=== PATIENT | male | born 1970 | race Hispanic/Latino ===

== ENCOUNTER 2018-08-17 19:16 | Inpatient (IN) | payer OTHER ==
[~2018-08-17] VITALS: Ht 182.9 cm; Wt 92.9 kg
[~2018-08-17 19:16] MED LIST: FOLI1TAB15 PO; LACT10SO9 PO; LORA-192 PO; MVIT PO; POTA10TA14 PO; THIAM100TB PO
[2018-08-17] MEDS ORDERED: SODIUM CHLORIDE 0.9% 1000ML 1,000 ML IV ONE ×2 (19:45→22:45)
[2018-08-17] MEDS ORDERED: ONDANSETRON HCL 4 MG/2 ML VIAL ONE (19:45)
[2018-08-17 19:55] LABS: BASOPHILS % (AUTO) 1.5 % (0.0-5.0); EOSINOPHILS % (AUTO) 0.3 % (0.0-8.0); HEMATOCRIT 36.7 % (42-54); LYMPHOCYTES % (AUTO) 9.1 % (21.0-51.0); MEAN CORPUSCULAR HGB CONC 35.6 g/dL (32.0-36.0); MEAN CORPUSCULAR VOLUME 98.5 fL (79-99); MONOCYTES % (AUTO) 14.5 % (3.0-13.0); NEUTROPHILS % (AUTO) 74.6 % (40.0-77.0); PLATELET COUNT (AUTO) 189 K/uL (130-400); RED BLOOD CELL COUNT(AUTO) 3.72 MIL/uL (4.50-6.20); RED CELL DISTRIBUTION WIDTH 13.9 % (11.0-15.5); WHITE BLOOD COUNT (AUTO) 6.8 K/uL (4.8-10.8)
[2018-08-17 20:05] LABS: POTASSIUM 3.3 mmol/L (3.5-5.1)
[2018-08-17 20:08] LABS: INR 1.18 (0.85-1.15); PARTIAL THROMBOPLASTIN TIME 28.4 SEC (26.3-35.5); PROTHROMBIN TIME 12.3 SEC (9.6-11.6)
[2018-08-17 20:09] LABS: ALBUMIN 3.2 g/dL (3.5-5.0); BILIRUBIN,TOTAL 0.9 mg/dL (0.2-1.0); TOTAL PROTEIN, SERUM 8.8 g/dL (6.0-8.3)
[2018-08-17] MEDS ORDERED: OCTREOTIDE ACETATE 100 MCG/ML AMP ONE ×2 (21:08→21:18)
[2018-08-17] MEDS ORDERED: SODIUM CHLORIDE 0.9% 100 ML IV ONE ×2 (21:09→21:18)
[2018-08-17] MEDS ORDERED: PHARMACY COMMUNICATION MISC PRN (21:45)
[2018-08-17] MEDS ORDERED: THIAMINE HCL 100 MG, FOLIC ACID 1 MG, M.V.I. IV [ADULT] 10 ML in SODIUM CHLORIDE 0.9% 1... IV SCH (21:45)
[2018-08-17] MEDS ORDERED: CHLORDIAZEPOXIDE HCL 25 MG CAP PO PRN (21:45)
[2018-08-17] MEDS ORDERED: ACETAMINOPHEN EXTRA STRENGTH 500 MG TABLET PO PRN (21:45)
[2018-08-17] MEDS ORDERED: ONDANSETRON HCL 4 MG/2 ML VIAL IV PRN (21:45)
[2018-08-17] MEDS ORDERED: LORAZEPAM 2 MG/ML 1 ML VIAL IVP PRN (21:45)
[2018-08-17] MEDS ORDERED: PROMETHAZINE HCL 25 MG TABLET PO PRN (21:45)
[2018-08-17] MEDS: SODIUM CHLORIDE 0.9% 1000ML 1,000 ML IV SCH (21:48)
[2018-08-17 22:00] LABS: PHOSPHORUS 3.5 mg/dL (2.5-4.9)
[2018-08-17] MEDS ORDERED: OCTREOTIDE ACETATE 500 MCG in SODIUM CHLORIDE 0.9% 97.5 ML IV PRN (22:00)
[2018-08-17] MEDS ORDERED: SODIUM CHLORIDE 0.9% 1000ML 1,000 ML IV SCH (22:00)
[2018-08-17] MEDS ORDERED: NITROGLYCERIN 0.4 MG SL TAB SL PRN (22:00)
[2018-08-17] MEDS ORDERED: ACETAMINOPHEN 650 MG SUPPOSITORY RC PRN ×2 (22:00)
[2018-08-17 22:07] LABS: ALCOHOL, BLOOD < 3 mg/dL (0-10)
[2018-08-17] MEDS ORDERED: M.V.I. IV [ADULT] 10 ML VIAL IV ONE (22:48)
[2018-08-17] MEDS ORDERED: THIAMINE HCL 100 MG/ML 2ML VIAL ONE (22:48)
[2018-08-17] MEDS ORDERED: FOLIC ACID 1 MG TABLET ONE (22:57)
[2018-08-17] MEDS ORDERED: LORAZEPAM 2 MG/ML 1 ML VIAL ONE (23:01)
[2018-08-17] MEDS ORDERED: MAGNESIUM 2GM PREMIX 50ML 50 ML IV ONE (23:25)
[2018-08-17] MEDS ORDERED: POTASSIUM CHLORIDE 20MEQ/100ML 100 ML IV ONE (23:25)
[2018-08-18] MEDS: SODIUM CHLORIDE 0.9% 1000ML 1,000 ML IV SCH (05:48)
[2018-08-18 06:31] LABS: ALBUMIN 2.4 g/dL (3.5-5.0); BILIRUBIN,TOTAL 0.5 mg/dL (0.2-1.0); CREATININE 0.9 mg/dL (0.5-1.5); MAGNESIUM 1.3 mg/dL (1.80-2.40); POTASSIUM 4.7 mmol/L (3.5-5.1); TOTAL PROTEIN, SERUM 6.9 g/dL (6.0-8.3)
[2018-08-18 06:35] LABS: BASOPHILS % (AUTO) 1.2 % (0.0-5.0); HEMATOCRIT 31.7 % (42-54); LYMPHOCYTES % (AUTO) 26.2 % (21.0-51.0); MEAN CORPUSCULAR HEMOGLOBIN 35.9 pg (27.0-33.0); MEAN CORPUSCULAR HGB CONC 35.9 g/dL (32.0-36.0); MEAN CORPUSCULAR VOLUME 99.9 fL (79-99); MONOCYTES % (AUTO) 18.2 % (3.0-13.0); NEUTROPHILS % (AUTO) 52.4 % (40.0-77.0); NUCLEATED RED BLOOD CELLS 0.2 % (0.0-0.19); PLATELET COUNT (AUTO) 176 K/uL (130-400); RED BLOOD CELL COUNT(AUTO) 3.17 MIL/uL (4.50-6.20); RED CELL DISTRIBUTION WIDTH 13.9 % (11.0-15.5); WHITE BLOOD COUNT (AUTO) 4.5 K/uL (4.8-10.8)
[2018-08-18] MEDS: PANTOPRAZOLE SODIUM 80 MG in SODIUM CHLORIDE 0.9% 100 ML IV SCH ×2 (09:00→13:56)
[2018-08-18] MEDS ORDERED: OCTREOTIDE ACETATE 500 MCG in SODIUM CHLORIDE 0.9% 97.5 ML IV PRN (10:15)
[2018-08-18 12:09] LABS: HEMATOCRIT 31.7 % (42-54)
--- NOTE | 2018-08-18 12:18 | NUR ---
MANI Guillermo met with pt and nephew. Pt currently lives with GF. Pt is independent, unemployed, no DME or HH. Pt seen at [facility] for care and meds. Plan is to dc to brother Rogelio's home [phone]. CM to follow and assist as needed Addendum: 08/18/18 at 1219 by LINDA DUMONT Amended: Links added.
[2018-08-18] MEDS ORDERED: ONDANSETRON HCL 4 MG/2 ML VIAL ONE (12:35)
[2018-08-18 13:15] VITALS: BP 149/93
[2018-08-18] MEDS: LORAZEPAM 2 MG/ML 1 ML VIAL IVP PRN ×2 (14:17→20:57)
[2018-08-18 16:00] VITALS: BP 147/90
[2018-08-18] MEDS ORDERED: POTA-9 PO (16:18)
[2018-08-18] MEDS ORDERED: LORA1TAB3 PO (16:18)
[2018-08-18] MEDS ORDERED: FOLI1TAB15 PO (16:18)
[2018-08-18] MEDS ORDERED: LOSA50TA64 PO (16:18)
[2018-08-18 19:00] VITALS: BP_SYST 161; BP_SYST 164; BP_DIAS 101; BP_DIAS 98
[2018-08-18 20:13] LABS: HEMATOCRIT 31.9 % (42-54)
[2018-08-18 21:04] LABS: APPEARANCE,URINE Clear (CLEAR); BILIRUBIN,URINE Negative (NEGATIVE); COLOR,URINE Yellow (YELLOW); GLUCOSE, URINE (UA) Negative (NEGATIVE); KETONES,URINE Negative (NEGATIVE); LEUKOCYTE ESTERASE ,URINE Trace (NEGATIVE); NITRATE,URINE Negative (NEGATIVE); OCCULT BLOOD,URINE Negative (NEGATIVE); PH,URINE >=9.0 (5.0-8.0); PROTEIN,URINE Negative (NEGATIVE)
[2018-08-18 21:10] LABS: RBC,URINE 0-1 /HPF (0-1)
[2018-08-18 21:11] LABS: BACTERIA,URINE Rare /HPF (None Seen)
[2018-08-18] MEDS: CHLORDIAZEPOXIDE HCL 25 MG CAP PO PRN (21:11)
[2018-08-18 21:12] LABS: SQUAMOUS EPITHELIAL CELL,UR Rare /HPF (0-2)
[2018-08-18 21:13] LABS: AMPHET/METH SCREEN,URINE NEGATIVE (NEGATIVE); BARBITURATE SCREEN, URINE NEGATIVE (NEGATIVE); BENZODIAZEPINES SCREEN,URINE NEGATIVE (NEGATIVE); CANNABINOID SCREEN,URINE NEGATIVE (NEGATIVE); COCAINE SCREEN,URINE NEGATIVE (NEGATIVE); OPIATE SCREEN,URINE NEGATIVE (NEGATIVE); PHENCYCLIDINE SCREEN,URINE NEGATIVE (NEGATIVE)
[2018-08-18] MEDS: MAGNESIUM 2GM PREMIX 50ML 50 ML IV PRN (23:03)
[2018-08-19] VITALS (18 sets, daily range): BP systolic 124–173; BP diastolic 53–104
[2018-08-19 04:32] LABS: BASOPHILS % (AUTO) 2.7 % (0.0-5.0); EOSINOPHILS % (AUTO) 4.3 % (0.0-8.0); HEMATOCRIT 30.6 % (42-54); LYMPHOCYTES % (AUTO) 34.2 % (21.0-51.0); MEAN CORPUSCULAR HEMOGLOBIN 35.5 pg (27.0-33.0); MEAN CORPUSCULAR HGB CONC 35.6 g/dL (32.0-36.0); MEAN CORPUSCULAR VOLUME 99.5 fL (79-99); MONOCYTES % (AUTO) 14.6 % (3.0-13.0); NEUTROPHILS % (AUTO) 44.2 % (40.0-77.0); PLATELET COUNT (AUTO) 139 K/uL (130-400); RED BLOOD CELL COUNT(AUTO) 3.08 MIL/uL (4.50-6.20); RED CELL DISTRIBUTION WIDTH 13.8 % (11.0-15.5); WHITE BLOOD COUNT (AUTO) 3.7 K/uL (4.8-10.8)
[2018-08-19] MEDS: POTASSIUM CHLORIDE 20MEQ/100ML 100 ML IV PRN ×2 (05:17→14:17)
[2018-08-19] MEDS: LIDOCAINE HCL-MPF 1% 2ML VIAL IVP PRN (05:17)
[2018-08-19] MEDS: SODIUM CHLORIDE 0.9% 1000ML 1,000 ML IV SCH (05:48)
[2018-08-19] MEDS: MAGNESIUM 2GM PREMIX 50ML 50 ML IV PRN (06:01)
[2018-08-19] MEDS: PANTOPRAZOLE SODIUM 80 MG in SODIUM CHLORIDE 0.9% 100 ML IV SCH (10:21)
[2018-08-19] MEDS ORDERED: PROPOFOL 10 MG/ML 20ML VIAL IV ONE (11:02)
[2018-08-19] MEDS: LORAZEPAM 2 MG/ML 1 ML VIAL IVP PRN (14:26)
[2018-08-19] MEDS ORDERED: POTASSIUM CHLORIDE 20 MEQ ERTAB PO SCH (14:30)
--- NOTE | 2018-08-19 15:42 | NUR ---
RD Notification Pt admitted for Upper GI Bleed. Pt NPO at time of screen; When medically feasible, rec to advance to Hepatic, Iron-Rich Diet secondary to Hx of Cirrhosis, GI Bleed. Pt with Alcohol abuse with IV B complex/MVI in place. Pt LBM 08/18/18. Pt monitored labs: K 3.0, BUN 23, Ca 7.9, Alb 2.4. RD to continue to monitor. Please notify RD as nutritional concerns arise. Thank you. Addendum: 08/19/18 at [address] Amended: Links added.
[2018-08-19] MEDS: PROPRANOLOL HCL 20 MG TAB PO SCH (21:45)
[2018-08-20] VITALS: BP 154/97
[2018-08-20] MEDS: CHLORDIAZEPOXIDE HCL 25 MG CAP PO PRN (02:15)
[2018-08-20 04:00] VITALS: BP 137/78
[2018-08-20 04:51] LABS: HEMATOCRIT 32.2 % (42-54); MEAN CORPUSCULAR HEMOGLOBIN 36.1 pg (27.0-33.0); MEAN CORPUSCULAR HGB CONC 36.4 g/dL (32.0-36.0); MEAN CORPUSCULAR VOLUME 99.2 fL (79-99); NUCLEATED RED BLOOD CELLS 0.1 % (0.0-0.19); PLATELET COUNT (AUTO) 141 K/uL (130-400); RED BLOOD CELL COUNT(AUTO) 3.25 MIL/uL (4.50-6.20); RED CELL DISTRIBUTION WIDTH 13.8 % (11.0-15.5); WHITE BLOOD COUNT (AUTO) 3.9 K/uL (4.8-10.8)
[2018-08-20 04:59] LABS: POTASSIUM 2.8 mmol/L (3.5-5.1)
[2018-08-20] MEDS: LIDOCAINE HCL-MPF 1% 2ML VIAL IVP PRN (05:18)
[2018-08-20] MEDS: POTASSIUM CHLORIDE 20MEQ/100ML 100 ML IV PRN (05:18)
[2018-08-20] MEDS ORDERED: PANTOPRAZOLE SODIUM 40 MG TABLET.DR PO SCH (07:30)
[2018-08-20] MEDS ORDERED: POTASSIUM CHLORIDE 20 MEQ ERTAB PO ONE ×4 (08:19→18:21)
[2018-08-20] MEDS: PROPRANOLOL HCL 20 MG TAB PO SCH (08:19)
[2018-08-20 08:43] VITALS: BP 144/88
[2018-08-20 12:25] VITALS: BP 145/98
[2018-08-20] MEDS ORDERED: PROP20TA96 PO (14:19)
[2018-08-20] MEDS ORDERED: PANT40TA PO (14:19)
[2018-08-20] MEDS ORDERED: MAGNESIUM 2GM PREMIX 50ML 50 ML IV PRN (14:30)
[2018-08-20] MEDS ORDERED: POTASSIUM CHLORIDE 20 MEQ ERTAB PO SCH ×2 (15:30→18:30)
[2018-08-20 17:17] VITALS: BP 133/81
== END 2018-08-20 18:35 | disposition home or self-care (01) | DRG 391 ==
LOC: EDH 19:16 → EDHIP 19:17 → 4AH 08-18 12:52
PROVIDERS: ADMIT Family Medicine; ATTEND Family Medicine
PROC: 0DJ08ZZ Inspection of Upper Intestinal Tract, Via Natural or Artificial Opening Endoscopic (ICD-10-PCS; principal; 2018-08-19)
DX: K21.0 Gastro-esophageal reflux disease with esophagitis (principal); K29.01 Acute gastritis with bleeding; I10 Essential (primary) hypertension; E87.6 Hypokalemia; E83.42 Hypomagnesemia; F10.10 Alcohol abuse, uncomplicated; I86.4 Gastric varices; K26.9 Duodenal ulcer, unspecified as acute or chronic, without hemorrhage or perforation; K31.89 Other diseases of stomach and duodenum; K75.9 Inflammatory liver disease, unspecified; K70.30 Alcoholic cirrhosis of liver without ascites; F41.9 Anxiety disorder, unspecified; E66.9 Obesity, unspecified; Z68.27 Body mass index [BMI] 27.0-27.9, adult
CPT/HCPCS: 36415; 43239; 80048; 80053; 80305; 81001; 82270; 83735; 84100; 84132; 85014; 85018; 85025; 85027; 85610; 85730; 86850; 86900; 86901; 93005; 99291; C9113; G0378; G0480; J2060; J2354; J2405; J2704; J3411; J3475; J3480; J3490; J7030

== ENCOUNTER 2019-11-22 16:14 | Inpatient (IN) | payer OTHER ==
[~2019-11-22] VITALS: Ht 170.2 cm; Wt 91.5 kg
[~2019-11-22 16:14] MED LIST changes: -LACT10SO9 PO; -LORA-192 PO; +LORA1TAB3 PO; +LOSA50TA64 PO; -MVIT PO; +PANT40TA PO; +POTA-9 PO; -POTA10TA14 PO; +PROP20TA96 PO; -THIAM100TB PO
[2019-11-22 16:43] LABS: BASOPHILS % (AUTO) 1.3 % (0.0-5.0); EOSINOPHILS % (AUTO) 1.9 % (0.0-8.0); HEMATOCRIT 30.7 % (42-54); LYMPHOCYTES % (AUTO) 19.7 % (21.0-51.0); MEAN CORPUSCULAR HEMOGLOBIN 37.6 pg (27.0-33.0); MEAN CORPUSCULAR HGB CONC 34.5 g/dL (32.0-36.0); MEAN CORPUSCULAR VOLUME 108.9 fL (79-99); MONOCYTES % (AUTO) 17.3 % (3.0-13.0); PLATELET COUNT (AUTO) 121 K/uL (130-400); RED BLOOD CELL COUNT(AUTO) 2.82 MIL/uL (4.50-6.20); RED CELL DISTRIBUTION WIDTH 14.4 % (11.0-15.5); WHITE BLOOD COUNT (AUTO) 8.8 K/uL (4.8-10.8)
[2019-11-22 16:53] LABS: CREATININE 1.2 mg/dL (0.5-1.5); POTASSIUM 3.5 mmol/L (3.5-5.1)
[2019-11-22 16:56] LABS: INR 1.97 (0.85-1.15); PARTIAL THROMBOPLASTIN TIME 51.3 SEC (26.3-35.5); PROTHROMBIN TIME 20.7 SEC (9.6-11.6)
[2019-11-22 17:06] LABS: ALBUMIN 1.1 g/dL (3.5-5.0); TOTAL PROTEIN, SERUM 7.1 g/dL (6.0-8.3)
[2019-11-22 17:14] LABS: BILIRUBIN,TOTAL 17.1 mg/dL (0.2-1.0)
[2019-11-22] MEDS ORDERED: THIAMINE HCL 100 MG/ML 2ML VIAL ONE (18:03)
[2019-11-22 18:30] LABS: APPEARANCE,URINE CLOUDY (CLEAR); BILIRUBIN,URINE LARGE (NEGATIVE); COLOR,URINE BROWN (YELLOW); GLUCOSE, URINE (UA) 100 mg/dL (NEGATIVE); KETONES,URINE 15 mg/dL (NEGATIVE); LEUKOCYTE ESTERASE ,URINE TRACE (NEGATIVE); NITRATE,URINE POSITIVE (NEGATIVE); OCCULT BLOOD,URINE LARGE (NEGATIVE); PH,URINE 6.5 (5.0-8.0); PROTEIN,URINE 30 mg/dL (NEGATIVE)
[2019-11-22] MEDS ORDERED: IOHEXOL-350 75 ML VIAL IV ONE (18:32)
[2019-11-22 18:43] LABS: BACTERIA,URINE Moderate /HPF (None Seen)
[2019-11-22 18:44] LABS: MUCUS,URINE Moderate LPF (None Seen); SQUAMOUS EPITHELIAL CELL,UR Few /HPF (0-2)
[2019-11-22 18:47] LABS: AMPHET/METH SCREEN,URINE NEGATIVE (NEGATIVE); BARBITURATE SCREEN, URINE NEGATIVE (NEGATIVE); BENZODIAZEPINES SCREEN,URINE POSITIVE (NEGATIVE); CANNABINOID SCREEN,URINE NEGATIVE (NEGATIVE); COCAINE SCREEN,URINE NEGATIVE (NEGATIVE); OPIATE SCREEN,URINE NEGATIVE (NEGATIVE); PHENCYCLIDINE SCREEN,URINE NEGATIVE (NEGATIVE)
[2019-11-22] MEDS ORDERED: MORPHINE SULFATE 4 MG/1ML SYG IV PRN (19:30)
[2019-11-22] MEDS ORDERED: ACETAMINOPHEN 325 MG TAB PO PRN ×2 (19:30)
[2019-11-22] MEDS ORDERED: LACTULOSE 20 GM/30 ML UDCUP PO PRN (19:30)
[2019-11-22] MEDS ORDERED: LIDOCAINE HCL 2% VISCOUS 30 ML, MAG HYDROX/AL HYDROX/SIMETH 30 ML, BELLADONNA-PHENOBARB... PO PRN ×3 (19:30)
[2019-11-22] MEDS ORDERED: GUAIFENESIN-DM 200/20 MG 10 ML PO PRN (19:30)
[2019-11-22] MEDS ORDERED: ONDANSETRON HCL 4 MG/2 ML VIAL IV PRN (19:30)
[2019-11-22] MEDS ORDERED: MAG HYDROX/AL HYDROX/SIMETH ES 30 ML SUSP UDCUP PO PRN (19:30)
[2019-11-22] MEDS ORDERED: MORPHINE SULFATE 2 MG/ML 1ML SYG IV PRN (19:30)
[2019-11-22] MEDS ORDERED: HYDROMORPHONE HCL 0.5 MG/0.5 ML ML IV PRN (19:30)
[2019-11-22] MEDS ORDERED: NITROGLYCERIN 0.4 MG SL TAB SL PRN (19:30)
[2019-11-22] MEDS ORDERED: DIPHENHYDRAMINE HCL 25 MG CAPSULE PO PRN (19:30)
[2019-11-22] MEDS ORDERED: DiphenhydrAMINE HCL 50 MG/ML VIAL IV PRN (19:30)
[2019-11-22] MEDS ORDERED: MAG HYDROX/AL HYDROX/SIMETH 30 ML, LIDOCAINE HCL 2% VISCOUS 30 ML, DIPHENHYDRAMINE HCL ... PO PRN ×3 (19:30)
[2019-11-22] MEDS ORDERED: FAMOTIDINE/PF 20 MG/2 ML VIAL IV ONE (20:28)
[2019-11-22 20:51] LABS: CREATINE KINASE, TOTAL 59 U/L (21-232); MYOGLOBIN 30 ng/mL (10-92); TROPONIN I < 0.04 ng/mL (0.00-0.06)
[2019-11-22] MEDS: FAMOTIDINE/PF 20 MG/2 ML VIAL IV SCH (21:00)
--- NOTE | 2019-11-23 00:59 | NUR ---
PATIENT RECEIVED FROM ER WITH A DIAGNOSIS OF LIVER FAILURE, JAUNDICE, UTI, UNDER THE CARE OF . PATIENT AWAKE AND ALERT TO NAME AND PLACE. ORIENTATED TO ROOM AND HOSPITAL. EXTRA TIME NEEDED TO VOICE NEEDS. VITALS STABLE. AFEBRILE. HEAD TO TOE ASSESSMENT DONE. LARGE BRUISE NOTED TO LEFT LE. PER GIRLFRIEND CHRISTINA, SHE STATES PATIENT HAD FALLEN AT REHAB FEW DAYS AGO, HISTORY OBTAINED FROM GF AND SOME FROM PATIENT. SIDE RAILS UP X4. FALL/SEIZURE PRECAUTIONS IN PLACE. WILL CONTINUE TO BE OBSERVED. Addendum: 11/23/19 at 0620 by HILTON WALLS RN RN Amended: Links added.
[2019-11-23] MEDS ORDERED: CYCL10TA7 PO (01:30)
[2019-11-23] MEDS ORDERED: DULO30CA52 PO (01:30)
[2019-11-23] MEDS ORDERED: MAGN400T8 PO (01:30)
[2019-11-23] MEDS: CEFTRIAXONE SODIUM 1 GM IVP SCH ×2 (02:50→23:47)
[2019-11-23] MEDS ORDERED: PHARMACY COMMUNICATION MISC PRN (03:15)
[2019-11-23] MEDS ORDERED: LORAZEPAM 1 MG TABLET PO PRN (03:15)
[2019-11-23] MEDS ORDERED: LORAZEPAM 2 MG/ML 1 ML VIAL IVP PRN (03:15)
[2019-11-23 04:00] VITALS: BP 106/50
[2019-11-23 05:32] LABS: BASOPHILS % (AUTO) 1.2 % (0.0-5.0); HEMATOCRIT 31.6 % (42-54); LYMPHOCYTES % (AUTO) 12.4 % (21.0-51.0); MEAN CORPUSCULAR HEMOGLOBIN 37.5 pg (27.0-33.0); MEAN CORPUSCULAR HGB CONC 35.4 g/dL (32.0-36.0); MEAN CORPUSCULAR VOLUME 105.7 fL (79-99); MONOCYTES % (AUTO) 14.3 % (3.0-13.0); NEUTROPHILS % (AUTO) 70.5 % (40.0-77.0); NUCLEATED RED BLOOD CELLS 0.2 % (0.0-0.19); PLATELET COUNT (AUTO) 99 K/uL (130-400); RED BLOOD CELL COUNT(AUTO) 2.99 MIL/uL (4.50-6.20); RED CELL DISTRIBUTION WIDTH 14.3 % (11.0-15.5); WHITE BLOOD COUNT (AUTO) 10.4 K/uL (4.8-10.8)
[2019-11-23] MEDS: CHLORDIAZEPOXIDE HCL 25 MG CAP PO PRN ×2 (05:43→09:08)
[2019-11-23 05:51] LABS: CREATININE 0.8 mg/dL (0.5-1.5); MAGNESIUM 1.7 mg/dL (1.80-2.40); POTASSIUM 3.5 mmol/L (3.5-5.1); TOTAL PROTEIN, SERUM 6.8 g/dL (6.0-8.3)
--- NOTE | 2019-11-23 06:00 | NUR ---
PATIENT MEDICATED PER ETOH ALCOHOL WITHDRAWAL ASSESSMENT SCORE OF 12. PATIENT TOLERATED WELL. BED BATH GIVEN. REPOSITIONED FOR COMFORT. NO SIGNS OF DISTRESS NOTED. CALL LIGHT WITHIN REACH. WILL CONTINUE TO BE OBSERVED. Addendum: 11/23/19 at 0612 by HILTON WALLS RN RN Amended: Links added.
[2019-11-23 06:52] LABS: CREATINE KINASE, TOTAL 74 U/L (21-232); MYOGLOBIN 37 ng/mL (10-92); TROPONIN I < 0.04 ng/mL (0.00-0.06)
[2019-11-23 07:30] VITALS: BP 125/95
[2019-11-23] MEDS: PANTOPRAZOLE SODIUM 40 MG TABLET.DR PO SCH (07:30)
[2019-11-23] MEDS ORDERED: ENOXAPARIN SODIUM 40 MG/0.4 ML SYRINGE SQ SCH (09:00)
[2019-11-23] MEDS: MAGNESIUM OXIDE 400 MG TABLET PO SCH ×2 (09:07→22:33)
[2019-11-23] MEDS: MULTIVITAMIN TABLET PO SCH (09:07)
[2019-11-23] MEDS: FOLIC ACID 1 MG TABLET PO SCH (09:07)
[2019-11-23] MEDS: FAMOTIDINE/PF 20 MG/2 ML VIAL IV SCH ×2 (09:07→20:26)
[2019-11-23] MEDS: PROPRANOLOL HCL 20 MG TAB PO SCH ×2 (09:08→22:33)
[2019-11-23] MEDS: POTASSIUM CHLORIDE 10 MEQ/TAB.SA PO SCH (09:08)
[2019-11-23] MEDS: THIAMINE HCL 100 MG, FOLIC ACID 1 MG, M.V.I. IV [ADULT] 10 ML in SODIUM CHLORIDE 0.9% 1... IV SCH (09:44)
[2019-11-23] MEDS: LACTULOSE 20 GM/30 ML UDCUP PO SCH ×2 (09:47→16:58)
[2019-11-23 11:00] VITALS: BP 97/64
[2019-11-23 12:15] LABS: CREATINE KINASE, TOTAL 66 U/L (21-232); MYOGLOBIN 56 ng/mL (10-92); TROPONIN I < 0.04 ng/mL (0.00-0.06)
--- NOTE | 2019-11-23 15:55 | NUR ---
JOSÉ MIGUEL ATTEMPTED THIS MORNING PATIENT SOMMOLENT, WILL RE VISIT. Addendum: 11/23/19 at 1556 by SHIVA JACOBSEN RN CM Amended: Links added.
[2019-11-23 16:00] VITALS: BP 108/58
[2019-11-23] MEDS ORDERED: LACTULOSE 20 GM/30 ML UDCUP PR SCH (17:30)
[2019-11-23] MEDS: LACTULOSE 20 GM/30 ML UDCUP PR SCH ×2 (19:30→23:45)
[2019-11-23 19:55] VITALS: BP 124/67
[2019-11-23] MEDS: MAGNESIUM 2GM PREMIX 50ML 50 ML IV SCH (20:26)
[2019-11-23] MEDS ORDERED: SODIUM CHLORIDE 0.9% 250 ML IV ONE (20:40)
[2019-11-23] MEDS: DULOXETINE HCL 30 MG CAP PO SCH (22:33)
[2019-11-23 23:23] VITALS: BP 139/56
[2019-11-24] MEDS: LACTULOSE 20 GM/30 ML UDCUP PO SCH ×4 (00:10→23:37)
[2019-11-24] MEDS ORDERED: POTASSIUM CHLORIDE 20 MEQ ERTAB PO ONE (01:06)
[2019-11-24] MEDS: CHLORDIAZEPOXIDE HCL 25 MG CAP PO PRN (01:08)
[2019-11-24] MEDS: POTASSIUM CHLORIDE 20 MEQ ERTAB PO PRN (04:02)
[2019-11-24] MEDS: LACTULOSE 20 GM/30 ML UDCUP PR SCH ×5 (04:02→23:37)
[2019-11-24 04:03] VITALS: BP 109/54
[2019-11-24 06:37] LABS: BASOPHILS % (AUTO) 1.2 % (0.0-5.0); EOSINOPHILS % (AUTO) 1.4 % (0.0-8.0); HEMATOCRIT 33.3 % (42-54); LYMPHOCYTES % (AUTO) 18.6 % (21.0-51.0); MEAN CORPUSCULAR HEMOGLOBIN 37.6 pg (27.0-33.0); MEAN CORPUSCULAR HGB CONC 34.2 g/dL (32.0-36.0); MEAN CORPUSCULAR VOLUME 109.9 fL (79-99); MONOCYTES % (AUTO) 16.9 % (3.0-13.0); NEUTROPHILS % (AUTO) 61.6 % (40.0-77.0); PLATELET COUNT (AUTO) 111 K/uL (130-400); RED BLOOD CELL COUNT(AUTO) 3.03 MIL/uL (4.50-6.20); RED CELL DISTRIBUTION WIDTH 14.8 % (11.0-15.5); WHITE BLOOD COUNT (AUTO) 9.5 K/uL (4.8-10.8)
[2019-11-24 06:59] LABS: ALBUMIN 1.1 g/dL (3.5-5.0); MAGNESIUM 2.4 mg/dL (1.80-2.40); TOTAL PROTEIN, SERUM 7.1 g/dL (6.0-8.3)
[2019-11-24] MEDS: PANTOPRAZOLE SODIUM 40 MG TABLET.DR PO SCH (07:01)
[2019-11-24 07:04] LABS: BILIRUBIN,TOTAL 19.7 mg/dL (0.2-1.0)
[2019-11-24 07:23] LABS: INR 1.82 (0.85-1.15); PROTHROMBIN TIME 19.2 SEC (9.6-11.6)
[2019-11-24 07:30] VITALS: BP 115/66
--- NOTE | 2019-11-24 08:13 | NUR ---
administered lactulose retention enemas x3 on advisory internship. patient appears more awake and alert this am, oriented to name, speech is slurred, but verbally responsive to basic questions. he is aware he is not at home right now, and is able to follow simple commands, able to assist with turning and repositioning. will continue to monitor.
[2019-11-24] MEDS: POTASSIUM CHLORIDE 20MEQ/100ML 100 ML IV PRN (08:29)
[2019-11-24] MEDS: LIDOCAINE HCL-MPF 1% 2ML VIAL IV PRN (08:29)
[2019-11-24] MEDS: MAGNESIUM OXIDE 400 MG TABLET PO SCH ×2 (09:00→20:52)
[2019-11-24] MEDS: PROPRANOLOL HCL 20 MG TAB PO SCH ×2 (09:00→20:52)
[2019-11-24] MEDS: POTASSIUM CHLORIDE 10 MEQ/TAB.SA PO SCH (09:00)
[2019-11-24] MEDS: MULTIVITAMIN TABLET PO SCH (09:00)
[2019-11-24] MEDS: FOLIC ACID 1 MG TABLET PO SCH (09:00)
[2019-11-24] MEDS: THIAMINE HCL 100 MG, FOLIC ACID 1 MG, M.V.I. IV [ADULT] 10 ML in SODIUM CHLORIDE 0.9% 1... IV SCH (10:17)
[2019-11-24 11:00] VITALS: BP 115/64
[2019-11-24] MEDS ORDERED: LORAZEPAM 2 MG/ML 1 ML VIAL IVP SCH (11:45)
--- NOTE | 2019-11-24 12:47 | NUR ---
CM NOTE/IA MEET WITH PATIENT IN ROOM. PATIENT IS DROWSY BUT GIRLFRIEND, JUAN KOENIG, AT BEDSIDE. PER GIRLFRIEND, PATIENT LIVES WITH HER, WAS INDEPENDENT WITH ADLS BEFORE SUFFERING FROM FALL AT REHAB PRIOR TO ADMISSION, NOW REQUIRES BACK BRACE AND IS SEMI INDEPENDENT WITH ADLS, NO USE OF HOME HEALTH OR PROVIDER, HAS WHEELCHAIR AND BACK BRACE, AND FEELS SAFE TO CARE FOR HIM AT HOME BUT OPEN TO RECOMMENDATIONS FROM MD. PER JUAN, PATIENTS FAMILY NOT INVOLVED WITH CARE, HAS TOTAL OF 6 BROTHERS/SISTERS. PATIENT IS UNINSURED. PER PRIMARY NURSE, MICHAEL BECERRA, SISTERS AND BROTHER HAVE BEEN CALLING NURSING STATION. AUTO AIR CONDITIONING APPRENTICE ORDERED TO ESTABLISH NEXT OF KIN. Addendum: 11/24/19 at 1251 by ROULA WALLS RN CM Amended: Links added.
[2019-11-24] MEDS ORDERED: POTASSIUM CHLORIDE 20 MEQ/100 ML BAG IV SCH (13:30)
--- NOTE | 2019-11-24 14:28 | NUR ---
SS referral to Establish Next of Kin Facesheet list pt's brother as next of kin: Dov Guzman, SW visited, pt. is sleeping and unarousable; girlfriend Prudence at bedside. Pt's girlfriend reports that she has been residing with pt. for four years. Prudence reports that pt has been an alcoholic since they met and that he has been in rehab for substance use disorders in the past, the most recent being in November 10 at [facility] in [place] for approximately two days when he fell and was sent to [facility] for 5days before being released back home. Prudence reported that pt.'s parents are , oldest dtr. resides in [place]; other two are local but none are close with their father. Pt. has three brothers and three sisters; pt. does not have any type of Advance Directives/MPOA. SW will revisit pt. tomorrow.
--- NOTE | 2019-11-24 16:55 | NUR ---
CALL FROM CHARGE NURSE SPOKE WITH CHARGE NURSE SAID THERE WAS FAMILY WAITING AT THE ER ENTRANCE DEMANDING TO SEE THE PATIENT. I WENT DOWN TO TALK WITH FAMILY. I MET SHYLA CONTRERAS, STATES HE IS THE BROTHER. ASKING IF HE CAN SEE HIM, I INFORMED HIM AT THIS TIME NO VISITORS ARE ALLOWED AND ALL HE WANTED TO KNOW HOW IS HE DOING. I ALSO DID NOTIFY HIM THAT THERE WERE MULTIPLE FAMILY MEMBERS CALLING THE NURSE AND INFORMED HIM THERE SHOULD BE A SPOKE PERSON SO THAT PERSON CAN RELAY THE STATUS/ INFORMATION ON HIS BROTHER. HIS CONTACT NUMBER IS [phone].
[2019-11-24 20:00] VITALS: BP 126/69
[2019-11-24] MEDS: DULOXETINE HCL 30 MG CAP PO SCH (20:51)
[2019-11-24 23:19] VITALS: BP 128/63
[2019-11-24] MEDS: CEFTRIAXONE SODIUM 1 GM IVP SCH (23:30)
--- NOTE | 2019-11-24 23:37 | NUR ---
LACTULOSE Pt unable to take po meds,he wakes up and able to state his name but does not follow commands to swallow po intake.Lactulose given as retention enema this time.pt had been having loose yellow stools.
[2019-11-25] VITALS (18 sets, daily range): BP systolic 105–143; BP diastolic 60–81
--- NOTE | 2019-11-25 02:45 | NUR ---
AMS Pt asleep,arousable.Somnolent,has occassional tremors noted.On Ciwa protocol
[2019-11-25] MEDS: LACTULOSE 20 GM/30 ML UDCUP PR SCH ×3 (04:11→10:00)
[2019-11-25 05:11] LABS: BASOPHILS % (AUTO) 1.2 % (0.0-5.0); EOSINOPHILS % (AUTO) 1.4 % (0.0-8.0); HEMATOCRIT 28.7 % (42-54); LYMPHOCYTES % (AUTO) 17.4 % (21.0-51.0); MEAN CORPUSCULAR HGB CONC 34.1 g/dL (32.0-36.0); MEAN CORPUSCULAR VOLUME 111.2 fL (79-99); MONOCYTES % (AUTO) 16.4 % (3.0-13.0); PLATELET COUNT (AUTO) 92 K/uL (130-400); RED BLOOD CELL COUNT(AUTO) 2.58 MIL/uL (4.50-6.20); RED CELL DISTRIBUTION WIDTH 14.6 % (11.0-15.5); WHITE BLOOD COUNT (AUTO) 5.2 K/uL (4.8-10.8)
[2019-11-25 06:26] LABS: ALBUMIN 1.1 g/dL (3.5-5.0); CREATININE 0.7 mg/dL (0.5-1.5)
[2019-11-25 06:28] LABS: BILIRUBIN,TOTAL 19.2 mg/dL (0.2-1.0); POTASSIUM 2.5 mmol/L (3.5-5.1)
[2019-11-25] MEDS: POTASSIUM CHLORIDE 20MEQ/100ML 100 ML IV PRN ×4 (06:36→20:24)
[2019-11-25] MEDS: LIDOCAINE HCL-MPF 1% 2ML VIAL IV PRN (06:36)
[2019-11-25] MEDS ORDERED: POTASSIUM CHLORIDE 20 MEQ ERTAB PO SCH (08:45)
[2019-11-25] MEDS: FOLIC ACID 1 MG TABLET PO SCH (09:00)
[2019-11-25] MEDS: POTASSIUM CHLORIDE 10 MEQ/TAB.SA PO SCH (09:00)
[2019-11-25] MEDS: MAGNESIUM OXIDE 400 MG TABLET PO SCH ×2 (09:00→21:00)
[2019-11-25] MEDS: THIAMINE HCL 100 MG, FOLIC ACID 1 MG, M.V.I. IV [ADULT] 10 ML in SODIUM CHLORIDE 0.9% 1... IV SCH (09:00)
[2019-11-25] MEDS: PROPRANOLOL HCL 20 MG TAB PO SCH ×2 (09:00→21:00)
[2019-11-25] MEDS: MULTIVITAMIN TABLET PO SCH (09:00)
--- NOTE | 2019-11-25 09:30 | NUR ---
CHANDRA 16 persian chandra cath inserted 100 ml of dark manuel urine returned sent urine to lab as ordered
[2019-11-25] MEDS: PANTOPRAZOLE 40 MG/VIAL IVP SCH (10:06)
[2019-11-25 10:12] LABS: APPEARANCE,URINE CLEAR (CLEAR); BILIRUBIN,URINE LARGE (NEGATIVE); COLOR,URINE ORANGE (YELLOW); GLUCOSE, URINE (UA) NEGATIVE (NEGATIVE); KETONES,URINE 5 mg/dL (NEGATIVE); LEUKOCYTE ESTERASE ,URINE NEGATIVE (NEGATIVE); NITRATE,URINE NEGATIVE (NEGATIVE); OCCULT BLOOD,URINE NEGATIVE (NEGATIVE); PROTEIN,URINE NEGATIVE (NEGATIVE)
[2019-11-25 10:14] LABS: BACTERIA,URINE Rare /HPF (None Seen); RBC,URINE 0-1 /HPF (0-1); WBC,URINE 0-1 /HPF (0-1)
[2019-11-25 10:15] LABS: SQUAMOUS EPITHELIAL CELL,UR Few /HPF (0-2)
[2019-11-25] MEDS: LACTULOSE 20 GM/30 ML UDCUP PO SCH (10:42)
--- NOTE | 2019-11-25 11:00 | NUR ---
TRANSFER Transferred to room day 14 from room 328. Upon arrival, pt lethargic. Minimal eye opening with noxious stimulation. Facial grimacing noted with palpation of abd. Does not make eye contact or focus on caregiver during assessment. SR on tele. VS as recorded. HOB @30-degrees. Side rails up for pt safety. Rails padded. Bed exit alarm activated. Assessment completed/recorded.
--- NOTE | 2019-11-25 11:54 | NUR ---
MD UPDATE Spoke to by phone regarding pt's status - orders received - refer to EMR.
[2019-11-25] MEDS: LACTULOSE 20 GM/30 ML UDCUP NG SCH ×4 (12:48→23:38)
--- NOTE | 2019-11-25 13:23 | NUR ---
Pt. has been transferred to [facility]; SW unable to speak with pt. SW will continue to follow.
[2019-11-25] MEDS: ZOSYN 3.375GM+NS 50ML 50 ML IV SCH ×2 (13:40→21:25)
[2019-11-25 14:37] LABS: ABG BASE EXCESS -0.2 mmol/L (-2.0-3.0); ABG HCO3 23.1 mmol/L (21.0-28.0); ABG OXYGEN SATURATION 97.7 % (95.0-99.0); ABG PCO2 34 mmHg (35-48)
[2019-11-25 17:11] LABS: MAGNESIUM 1.7 mg/dL (1.80-2.40)
[2019-11-25 17:13] LABS: POTASSIUM 2.8 mmol/L (3.5-5.1)
--- NOTE | 2019-11-25 17:26 | NUR ---
RD NOTIFICATION - PENDING NGT PLACEMENT, TUBE FEEDING Pt with worsening hepatic encephalopathy, AMS. Pending NGT placement. Jaundice. Pt transfer to Day Patient - 14. Recommend initiate continuous tube feedings of Jevity 1.5, initiated at 20mls/hr. Goal rate of 60mls/hr. Recommend increased H2O flushes @150mls Q4hrs secondary to elevated NH. Recommend continue Potassium supplementation secondary to decreased serum potassium (2.5). Recommend Multivitamin supplementation. Recommendations faxed to Day Patient, RN notified. RD to continue to monitor. Please notify as additional nutrition concerns arise. Thank you.
[2019-11-25] MEDS ORDERED: PHARMACY COMMUNICATION MISC SCH (18:00)
[2019-11-25] MEDS: DULOXETINE HCL 30 MG CAP PO SCH (21:00)
[2019-11-25] MEDS: RIFAXIMIN 550 MG TABLET PO SCH (21:25)
[2019-11-26] VITALS (24 sets, daily range): BP systolic 94–138; BP diastolic 59–80
[2019-11-26] MEDS: LACTULOSE 20 GM/30 ML UDCUP NG SCH ×2 (04:16→08:34)
[2019-11-26] MEDS: ZOSYN 3.375GM+NS 50ML 50 ML IV SCH ×3 (04:16→20:38)
[2019-11-26 05:28] LABS: BASOPHILS % (AUTO) 1.1 % (0.0-5.0); EOSINOPHILS % (AUTO) 1.9 % (0.0-8.0); HEMATOCRIT 29.5 % (42-54); LYMPHOCYTES % (AUTO) 21.2 % (21.0-51.0); MEAN CORPUSCULAR HEMOGLOBIN 37.4 pg (27.0-33.0); MEAN CORPUSCULAR HGB CONC 33.6 g/dL (32.0-36.0); MEAN CORPUSCULAR VOLUME 111.3 fL (79-99); MONOCYTES % (AUTO) 16.1 % (3.0-13.0); NEUTROPHILS % (AUTO) 59.2 % (40.0-77.0); PLATELET COUNT (AUTO) 97 K/uL (130-400); RED BLOOD CELL COUNT(AUTO) 2.65 MIL/uL (4.50-6.20); RED CELL DISTRIBUTION WIDTH 14.8 % (11.0-15.5); WHITE BLOOD COUNT (AUTO) 5.7 K/uL (4.8-10.8)
[2019-11-26 05:54] LABS: CREATININE 0.8 mg/dL (0.5-1.5); MAGNESIUM 1.6 mg/dL (1.80-2.40)
[2019-11-26 05:58] LABS: POTASSIUM 2.5 mmol/L (3.5-5.1)
[2019-11-26] MEDS ORDERED: POTASSIUM CHLORIDE 10% ELIXIR 20 MEQ/15 ML UDCUP ONE (06:09)
[2019-11-26] MEDS: POTASSIUM CHLORIDE 10% ELIXIR 20 MEQ/15 ML UDCUP PO PRN ×4 (06:12→15:49)
[2019-11-26] MEDS: FOLIC ACID 1 MG TABLET PO SCH (08:34)
[2019-11-26] MEDS: MAGNESIUM OXIDE 400 MG TABLET PO SCH ×2 (08:34→21:05)
[2019-11-26] MEDS: MULTIVITAMIN TABLET PO SCH (08:34)
[2019-11-26] MEDS: RIFAXIMIN 550 MG TABLET PO SCH ×2 (08:34→20:38)
[2019-11-26] MEDS: PROPRANOLOL HCL 20 MG TAB PO SCH ×2 (08:35→20:38)
[2019-11-26] MEDS: POTASSIUM CHLORIDE 10 MEQ/TAB.SA PO SCH (08:35)
[2019-11-26] MEDS: POTASSIUM CHLORIDE 20MEQ/100ML 100 ML IV PRN ×2 (08:39→11:16)
[2019-11-26] MEDS: PANTOPRAZOLE 40 MG/VIAL IVP SCH (08:39)
--- NOTE | 2019-11-26 09:00 | NUR ---
TERRI trigger for "Family questions regarding MPOA" SW visited pt's room and spoke with MARIAM Prather re-trigger. SW requested notification when family member calls back so that SW can f/u. Telephone call to pt's girlfriend Prudence, no answer.
[2019-11-26 09:30] LABS: TOTAL PROTEIN, SERUM 6.8 g/dL (6.0-8.3)
[2019-11-26 09:39] LABS: BILIRUBIN,DIRECT 11.9 mg/dL (0.0-0.3); BILIRUBIN,TOTAL 16.8 mg/dL (0.2-1.0)
--- NOTE | 2019-11-26 11:00 | NUR ---
Call back from Prudence; TERRI requested assistance with contacting pt's dtr.;Prudence stated that she would contact pt's daughter and provide this worker's number.
[2019-11-26] MEDS: LIDOCAINE HCL-MPF 1% 2ML VIAL IV PRN (11:17)
--- NOTE | 2019-11-26 12:00 | NUR ---
Dr Souza at bedside. Specified that potassium is being replaced as per protocol. Notified MD of total bili = 16.8, Direct Bili = 11.9, AST = 109. No new orders received from MD.
--- NOTE | 2019-11-26 14:00 | NUR ---
Call from pt's dtr Anh Guzman who is 18y, resides in [place] and is the oldest of four children. Anh informed that this worker spoke with pt. this morning with his primary nurse present and that he was able to respond X4. Pt. also informed this worker that he has four children and his oldest dtr is Anh. Pt. stated that he would like Anh to be contacted for any medical decisions needed at this time; Anh in agreement to make medical decisions for her father and provided her contact information. Pt. also verbalized that he would like Anh to speak with Prudence about his condition. SW also informed Anh that she would be the person designated to be provided any information and she is to inform other family members; Anh verbalized an understanding. Primary nurse provided with contact information for Anh.
[2019-11-26] MEDS: DULOXETINE HCL 30 MG CAP PO SCH (20:38)
[2019-11-27] VITALS (24 sets, daily range): BP systolic 99–157; BP diastolic 12–79
[2019-11-27] MEDS: ZOSYN 3.375GM+NS 50ML 50 ML IV SCH ×3 (05:09→20:33)
[2019-11-27] MEDS: RIFAXIMIN 550 MG TABLET PO SCH ×2 (08:17→20:33)
[2019-11-27] MEDS: MULTIVITAMIN TABLET PO SCH (08:17)
[2019-11-27] MEDS: FOLIC ACID 1 MG TABLET PO SCH (08:18)
[2019-11-27] MEDS: PANTOPRAZOLE 40 MG/VIAL IVP SCH (08:18)
[2019-11-27] MEDS: POTASSIUM CHLORIDE 10 MEQ/TAB.SA PO SCH (09:32)
[2019-11-27] MEDS: PROPRANOLOL HCL 20 MG TAB PO SCH ×2 (09:32→21:40)
[2019-11-27] MEDS: MAGNESIUM OXIDE 400 MG TABLET PO SCH ×2 (09:49→21:40)
[2019-11-27 10:16] LABS: BASOPHILS % (AUTO) 1.3 % (0.0-5.0); EOSINOPHILS % (AUTO) 2.6 % (0.0-8.0); HEMATOCRIT 34.1 % (42-54); LYMPHOCYTES % (AUTO) 15.2 % (21.0-51.0); MEAN CORPUSCULAR HEMOGLOBIN 39.7 pg (27.0-33.0); MEAN CORPUSCULAR HGB CONC 34.3 g/dL (32.0-36.0); MEAN CORPUSCULAR VOLUME 115.6 fL (79-99); MONOCYTES % (AUTO) 14.4 % (3.0-13.0); NUCLEATED RED BLOOD CELLS 0.3 % (0.0-0.19); PLATELET COUNT (AUTO) 88 K/uL (130-400); RED BLOOD CELL COUNT(AUTO) 2.95 MIL/uL (4.50-6.20); WHITE BLOOD COUNT (AUTO) 6.1 K/uL (4.8-10.8)
[2019-11-27 10:32] LABS: INR 1.94 (0.85-1.15); PROTHROMBIN TIME 20.4 SEC (9.6-11.6)
[2019-11-27 10:42] LABS: ALBUMIN 1.2 g/dL (3.5-5.0); CREATININE 0.9 mg/dL (0.5-1.5); POTASSIUM 3.4 mmol/L (3.5-5.1); TOTAL PROTEIN, SERUM 8.2 g/dL (6.0-8.3)
[2019-11-27 10:48] LABS: BILIRUBIN,TOTAL 16.9 mg/dL (0.2-1.0)
--- NOTE | 2019-11-27 11:00 | NUR ---
DYSPHAGIA EVAL COMPLETED. -S/S OF ASPIRATION. RECOMMEMD REGULAR TEXTURE, THIN LIQUIDS; PILLS WHOLE WITH LIQUIDS. Addendum: 11/27/19 at 1430 by STEPHANIE FONTANEZ, [facility] Amended: Links added.
[2019-11-27] MEDS: POTASSIUM CHLORIDE 10% ELIXIR 20 MEQ/15 ML UDCUP PO PRN ×2 (11:57→13:31)
[2019-11-27] MEDS: LACTULOSE 20 GM/30 ML UDCUP PO SCH (20:33)
[2019-11-27] MEDS: DULOXETINE HCL 30 MG CAP PO SCH (20:33)
[2019-11-28] VITALS (20 sets, daily range): BP systolic 62–137; BP diastolic 32–94
[2019-11-28] MEDS: ZOLPIDEM TARTRATE 5 MG TAB PO PRN (01:37)
--- NOTE | 2019-11-28 01:51 | NUR ---
Patient c/o unable to sleep ,kept tossing and turning.PRN Ambien given at this time.Will continue to monitor patient.
[2019-11-28 03:44] LABS: BASOPHILS % (AUTO) 0.6 % (0.0-5.0); EOSINOPHILS % (AUTO) 1.8 % (0.0-8.0); HEMATOCRIT 32.6 % (42-54); LYMPHOCYTES % (AUTO) 12.8 % (21.0-51.0); MEAN CORPUSCULAR HEMOGLOBIN 37.8 pg (27.0-33.0); MEAN CORPUSCULAR HGB CONC 33.1 g/dL (32.0-36.0); MONOCYTES % (AUTO) 12.7 % (3.0-13.0); NEUTROPHILS % (AUTO) 71.7 % (40.0-77.0); PLATELET COUNT (AUTO) 96 K/uL (130-400); RED BLOOD CELL COUNT(AUTO) 2.86 MIL/uL (4.50-6.20); RED CELL DISTRIBUTION WIDTH 14.8 % (11.0-15.5)
[2019-11-28 04:00] LABS: BILIRUBIN,TOTAL 14.7 mg/dL (0.2-1.0); CREATININE 0.9 mg/dL (0.5-1.5); INR 2.1 (0.85-1.15); TOTAL PROTEIN, SERUM 7.3 g/dL (6.0-8.3)
[2019-11-28 04:01] LABS: POTASSIUM 2.9 mmol/L (3.5-5.1)
[2019-11-28] MEDS: ZOSYN 3.375GM+NS 50ML 50 ML IV SCH ×3 (04:16→21:43)
[2019-11-28] MEDS: POTASSIUM CHLORIDE 20MEQ/100ML 100 ML IV PRN (04:17)
--- NOTE | 2019-11-28 07:23 | NUR ---
Bedside report given to incoming NOD using SBAR,patient is mostly awake at night.Patient resting well at this time, respirations even and non labored.Patient remains arousable.
[2019-11-28] MEDS: PANTOPRAZOLE 40 MG/VIAL IVP SCH (08:09)
[2019-11-28] MEDS: THIAMINE HCL 100 MG TABLET PO SCH (08:09)
[2019-11-28] MEDS: RIFAXIMIN 550 MG TABLET PO SCH ×2 (08:10→21:43)
[2019-11-28] MEDS: FOLIC ACID 1 MG TABLET PO SCH (08:10)
[2019-11-28] MEDS: POTASSIUM CHLORIDE 20 MEQ ERTAB PO PRN ×4 (08:10→13:51)
[2019-11-28] MEDS: MAGNESIUM OXIDE 400 MG TABLET PO SCH ×2 (08:11→21:43)
[2019-11-28] MEDS: MULTIVITAMIN TABLET PO SCH (08:11)
[2019-11-28] MEDS: PROPRANOLOL HCL 20 MG TAB PO SCH ×2 (08:16→21:43)
[2019-11-28] MEDS: LACTULOSE 20 GM/30 ML UDCUP PO SCH ×2 (08:16→21:43)
[2019-11-28] MEDS: POTASSIUM CHLORIDE 10 MEQ/TAB.SA PO SCH (08:18)
--- NOTE | 2019-11-28 16:52 | NUR ---
Report Report given to MARIAM Hartman, receiving nurse for pt. All questions answered. Pt transferred to room 310.
--- NOTE | 2019-11-28 21:37 | NUR ---
NOTE DR. ALFONSO CAME TO SEE PATIENT AND EXAMINED HIM. NO NEW ORDERS RECEIVED.
[2019-11-28] MEDS: DULOXETINE HCL 30 MG CAP PO SCH (21:43)
[2019-11-29 04:00] VITALS: BP 135/68
[2019-11-29] MEDS: ZOSYN 3.375GM+NS 50ML 50 ML IV SCH ×3 (05:32→21:39)
[2019-11-29 08:00] VITALS: BP 126/73
[2019-11-29] MEDS: POTASSIUM CHLORIDE 10 MEQ/TAB.SA PO SCH (09:00)
[2019-11-29] MEDS: PANTOPRAZOLE 40 MG/VIAL IVP SCH (09:00)
[2019-11-29] MEDS: MULTIVITAMIN TABLET PO SCH (11:39)
[2019-11-29] MEDS: MAGNESIUM OXIDE 400 MG TABLET PO SCH ×2 (11:39→21:42)
[2019-11-29] MEDS: RIFAXIMIN 550 MG TABLET PO SCH ×2 (11:39→21:42)
[2019-11-29] MEDS: FOLIC ACID 1 MG TABLET PO SCH (11:39)
[2019-11-29] MEDS: PROPRANOLOL HCL 20 MG TAB PO SCH ×2 (11:39→21:42)
[2019-11-29] MEDS: THIAMINE HCL 100 MG TABLET PO SCH (11:39)
[2019-11-29] MEDS: LACTULOSE 20 GM/30 ML UDCUP PO SCH ×2 (11:40→21:42)
[2019-11-29 12:00] VITALS: BP 128/73
[2019-11-29 16:00] VITALS: BP_SYST 124; BP_SYST 138; BP_DIAS 75; BP_DIAS 81
[2019-11-29 19:00] VITALS: BP 117/64
[2019-11-29] MEDS: DULOXETINE HCL 30 MG CAP PO SCH (21:48)
[2019-11-30] VITALS (7 sets, daily range): BP systolic 108–139; BP diastolic 64–76
[2019-11-30 04:36] LABS: BASOPHILS % (AUTO) 0.7 % (0.0-5.0); EOSINOPHILS % (AUTO) 2.8 % (0.0-8.0); HEMATOCRIT 32.9 % (42-54); LYMPHOCYTES % (AUTO) 19.5 % (21.0-51.0); MEAN CORPUSCULAR HEMOGLOBIN 37.2 pg (27.0-33.0); MEAN CORPUSCULAR HGB CONC 32.8 g/dL (32.0-36.0); MEAN CORPUSCULAR VOLUME 113.4 fL (79-99); MONOCYTES % (AUTO) 10.7 % (3.0-13.0); PLATELET COUNT (AUTO) 98 K/uL (130-400); RED CELL DISTRIBUTION WIDTH 15.5 % (11.0-15.5); WHITE BLOOD COUNT (AUTO) 8.9 K/uL (4.8-10.8)
[2019-11-30 05:00] LABS: ALBUMIN 1.1 g/dL (3.5-5.0); CREATININE 1.2 mg/dL (0.5-1.5); TOTAL PROTEIN, SERUM 7.6 g/dL (6.0-8.3)
[2019-11-30 05:05] LABS: BILIRUBIN,TOTAL 16.7 mg/dL (0.2-1.0); POTASSIUM 2.4 mmol/L (3.5-5.1)
[2019-11-30] MEDS: ZOSYN 3.375GM+NS 50ML 50 ML IV SCH ×3 (05:20→20:24)
[2019-11-30] MEDS ORDERED: SODIUM CHLORIDE 0.9% 250 ML IV ONE (06:13)
[2019-11-30] MEDS: MAGNESIUM 2GM PREMIX 50ML 50 ML IV SCH (06:20)
--- NOTE | 2019-11-30 08:30 | NUR ---
D/C planning-SW received telephone call from pt's dtr. re-d/c planning; SW provided dtr. with contact number for CANDIDA/Yi. Yi/CANDIDA made aware.
[2019-11-30] MEDS: LACTULOSE 20 GM/30 ML UDCUP PO SCH ×2 (09:05→20:24)
[2019-11-30] MEDS: THIAMINE HCL 100 MG TABLET PO SCH (09:05)
[2019-11-30] MEDS: PANTOPRAZOLE 40 MG/VIAL IVP SCH (09:05)
[2019-11-30] MEDS: PROPRANOLOL HCL 20 MG TAB PO SCH ×2 (09:06→20:24)
[2019-11-30] MEDS: POTASSIUM CHLORIDE 10 MEQ/TAB.SA PO SCH (09:06)
[2019-11-30] MEDS: RIFAXIMIN 550 MG TABLET PO SCH ×2 (09:06→20:24)
[2019-11-30] MEDS: MAGNESIUM OXIDE 400 MG TABLET PO SCH ×2 (09:06→20:24)
[2019-11-30] MEDS: FOLIC ACID 1 MG TABLET PO SCH (09:06)
[2019-11-30] MEDS: MULTIVITAMIN TABLET PO SCH (09:06)
[2019-11-30] MEDS: POTASSIUM CHLORIDE 20 MEQ ERTAB PO PRN ×3 (11:52→21:36)
[2019-11-30] MEDS: POTASSIUM CHLORIDE 20MEQ/100ML 100 ML IV PRN ×2 (17:41→21:37)
--- NOTE | 2019-11-30 18:14 | NUR ---
REPORT GIVEN TO HEATHER
--- NOTE | 2019-11-30 19:00 | NUR ---
HYPOKALEMIA Pt had a potassium level of 2.4 in the morning,ordered a recheck potassium level now.
[2019-11-30] MEDS: DULOXETINE HCL 30 MG CAP PO SCH (20:24)
--- NOTE | 2019-11-30 21:09 | NUR ---
K+ k+ REPEAT 2.9,hypokalemia protocol initiated.
[2019-11-30] MEDS: LIDOCAINE HCL-MPF 1% 2ML VIAL IV PRN (21:36)
[2019-11-30] MEDS: POTASSIUM CHLORIDE 10% ELIXIR 20 MEQ/15 ML UDCUP PO PRN (23:49)
--- NOTE | 2019-12-01 01:19 | NUR ---
AWAKE Pt woke up,confused.Inappropriate,does not want to take po potassium.Sitter at bedside.
--- NOTE | 2019-12-01 01:55 | NUR ---
CALM Pt more awake,calm and cooperative.He took the last po kcl offerred to him as per hypokalemia protocol.Will recheck labs in am.
[2019-12-01 03:43] VITALS: BP 98/57
[2019-12-01 04:06] LABS: EOSINOPHILS % (AUTO) 4.4 % (0.0-8.0); HEMATOCRIT 31.2 % (42-54); LYMPHOCYTES % (AUTO) 24.7 % (21.0-51.0); MEAN CORPUSCULAR HEMOGLOBIN 37.5 pg (27.0-33.0); MEAN CORPUSCULAR HGB CONC 33.3 g/dL (32.0-36.0); MEAN CORPUSCULAR VOLUME 112.6 fL (79-99); MONOCYTES % (AUTO) 12.5 % (3.0-13.0); NEUTROPHILS % (AUTO) 57.1 % (40.0-77.0); PLATELET COUNT (AUTO) 74 K/uL (130-400); RED BLOOD CELL COUNT(AUTO) 2.77 MIL/uL (4.50-6.20); RED CELL DISTRIBUTION WIDTH 15.3 % (11.0-15.5); WHITE BLOOD COUNT (AUTO) 6.9 K/uL (4.8-10.8)
[2019-12-01 04:21] LABS: CREATININE 1.1 mg/dL (0.5-1.5); POTASSIUM 3.2 mmol/L (3.5-5.1)
[2019-12-01] MEDS: ZOSYN 3.375GM+NS 50ML 50 ML IV SCH ×3 (04:25→20:25)
[2019-12-01] MEDS: POTASSIUM CHLORIDE 10% ELIXIR 20 MEQ/15 ML UDCUP PO PRN ×2 (04:25→05:54)
[2019-12-01 08:34] VITALS: BP 114/60
[2019-12-01] MEDS: RIFAXIMIN 550 MG TABLET PO SCH ×2 (08:45→20:25)
[2019-12-01] MEDS: FOLIC ACID 1 MG TABLET PO SCH (08:45)
[2019-12-01] MEDS: LACTULOSE 20 GM/30 ML UDCUP PO SCH ×2 (08:45→20:25)
[2019-12-01] MEDS: POTASSIUM CHLORIDE 10 MEQ/TAB.SA PO SCH (08:45)
[2019-12-01] MEDS: THIAMINE HCL 100 MG TABLET PO SCH (08:45)
[2019-12-01] MEDS: MULTIVITAMIN TABLET PO SCH (08:46)
[2019-12-01] MEDS: PROPRANOLOL HCL 20 MG TAB PO SCH ×2 (08:46→20:25)
[2019-12-01] MEDS: MAGNESIUM OXIDE 400 MG TABLET PO SCH ×2 (08:46→20:25)
[2019-12-01] MEDS: PANTOPRAZOLE 40 MG/VIAL IVP SCH (08:46)
[2019-12-01 12:17] VITALS: BP 102/57
[2019-12-01 16:00] VITALS: BP 117/68
[2019-12-01] MEDS: DULOXETINE HCL 30 MG CAP PO SCH (20:25)
[2019-12-01 20:37] VITALS: BP 106/58
[2019-12-02 00:26] VITALS: BP 113/68
[2019-12-02 04:11] LABS: CREATININE 1.1 mg/dL (0.5-1.5)
[2019-12-02 04:19] LABS: TOTAL PROTEIN, SERUM 7.3 g/dL (6.0-8.3)
[2019-12-02 04:35] VITALS: BP 128/76
[2019-12-02] MEDS: ZOSYN 3.375GM+NS 50ML 50 ML IV SCH ×3 (04:58→21:11)
[2019-12-02] MEDS: POTASSIUM CHLORIDE 10% ELIXIR 20 MEQ/15 ML UDCUP PO PRN (05:50)
[2019-12-02 08:36] VITALS: BP 117/70
[2019-12-02] MEDS: FOLIC ACID 1 MG TABLET PO SCH (10:38)
[2019-12-02] MEDS: LIDOCAINE HCL-MPF 1% 2ML VIAL IV PRN (10:38)
[2019-12-02] MEDS: POTASSIUM CHLORIDE 20MEQ/100ML 100 ML IV PRN (10:38)
[2019-12-02] MEDS: PROPRANOLOL HCL 20 MG TAB PO SCH ×2 (10:38→21:11)
[2019-12-02] MEDS: RIFAXIMIN 550 MG TABLET PO SCH ×2 (10:38→21:11)
[2019-12-02] MEDS: THIAMINE HCL 100 MG TABLET PO SCH (10:38)
[2019-12-02] MEDS: PANTOPRAZOLE 40 MG/VIAL IVP SCH (10:38)
[2019-12-02] MEDS: LACTULOSE 20 GM/30 ML UDCUP PO SCH ×2 (10:38→21:11)
[2019-12-02] MEDS: MAGNESIUM OXIDE 400 MG TABLET PO SCH ×2 (10:38→21:11)
[2019-12-02] MEDS: POTASSIUM CHLORIDE 10 MEQ/TAB.SA PO SCH (10:38)
[2019-12-02] MEDS: MULTIVITAMIN TABLET PO SCH (10:38)
[2019-12-02 11:00] VITALS: BP 115/75
[2019-12-02 16:00] VITALS: BP 117/72
[2019-12-02 20:00] VITALS: BP 107/74
[2019-12-02] MEDS: DULOXETINE HCL 30 MG CAP PO SCH (21:11)
[2019-12-02] MEDS: HYDROMORPHONE 1 MG/1 ML AMP IVP PRN (23:08)
[2019-12-03 00:10] VITALS: BP 114/74
[2019-12-03] MEDS: HYDROMORPHONE 1 MG/1 ML AMP IVP PRN ×8 (00:19→23:40)
[2019-12-03 04:12] LABS: ALBUMIN 0.9 g/dL (3.5-5.0); BILIRUBIN,TOTAL 10.3 mg/dL (0.2-1.0); TOTAL PROTEIN, SERUM 6.6 g/dL (6.0-8.3)
[2019-12-03] MEDS: ZOSYN 3.375GM+NS 50ML 50 ML IV SCH ×3 (04:30→20:38)
[2019-12-03 05:21] VITALS: BP 113/68
[2019-12-03] MEDS: POTASSIUM CHLORIDE 20 MEQ ERTAB PO PRN (07:16)
[2019-12-03] MEDS: POTASSIUM CHLORIDE 20MEQ/100ML 100 ML IV PRN (07:16)
[2019-12-03 07:30] VITALS: BP 105/57
[2019-12-03] MEDS: LACTULOSE 20 GM/30 ML UDCUP PO SCH ×2 (10:41→20:38)
[2019-12-03] MEDS: PANTOPRAZOLE 40 MG/VIAL IVP SCH (10:41)
[2019-12-03] MEDS: MAGNESIUM OXIDE 400 MG TABLET PO SCH ×2 (10:42→20:38)
[2019-12-03] MEDS: MULTIVITAMIN TABLET PO SCH (10:43)
[2019-12-03] MEDS: POTASSIUM CHLORIDE 10 MEQ/TAB.SA PO SCH (10:43)
[2019-12-03] MEDS: PROPRANOLOL HCL 20 MG TAB PO SCH ×2 (10:43→20:38)
[2019-12-03] MEDS: FOLIC ACID 1 MG TABLET PO SCH (10:43)
[2019-12-03] MEDS: THIAMINE HCL 100 MG TABLET PO SCH (10:43)
[2019-12-03] MEDS: RIFAXIMIN 550 MG TABLET PO SCH ×2 (10:43→20:38)
[2019-12-03 12:19] VITALS: BP 115/70
[2019-12-03] MEDS: POTASSIUM CHLORIDE 10% ELIXIR 20 MEQ/15 ML UDCUP PO PRN ×2 (12:23→17:38)
[2019-12-03 16:00] VITALS: BP 109/62
[2019-12-03 20:04] VITALS: BP 108/56
[2019-12-03] MEDS: DULOXETINE HCL 30 MG CAP PO SCH (20:38)
[2019-12-04] VITALS (7 sets, daily range): BP systolic 112–141; BP diastolic 61–85
[2019-12-04] MEDS: HYDROMORPHONE 1 MG/1 ML AMP IVP PRN ×4 (01:06→05:00)
[2019-12-04 03:52] LABS: POTASSIUM 3.5 mmol/L (3.5-5.1)
[2019-12-04 03:56] LABS: ALBUMIN 0.9 g/dL (3.5-5.0); BILIRUBIN,TOTAL 10.7 mg/dL (0.2-1.0)
[2019-12-04] MEDS: ZOSYN 3.375GM+NS 50ML 50 ML IV SCH ×3 (04:28→22:04)
[2019-12-04] MEDS: POTASSIUM CHLORIDE 10% ELIXIR 20 MEQ/15 ML UDCUP PO PRN (05:34)
[2019-12-04] MEDS: LACTULOSE 20 GM/30 ML UDCUP PO SCH ×4 (09:00→21:57)
[2019-12-04 09:06] LABS: EOSINOPHILS % (AUTO) 3.5 % (0.0-8.0); HEMATOCRIT 35.3 % (42-54); LYMPHOCYTES % (AUTO) 21.1 % (21.0-51.0); MEAN CORPUSCULAR HEMOGLOBIN 37.8 pg (27.0-33.0); MEAN CORPUSCULAR HGB CONC 33.4 g/dL (32.0-36.0); MEAN CORPUSCULAR VOLUME 113.1 fL (79-99); NEUTROPHILS % (AUTO) 64.8 % (40.0-77.0); PLATELET COUNT (AUTO) 72 K/uL (130-400); RED BLOOD CELL COUNT(AUTO) 3.12 MIL/uL (4.50-6.20); RED CELL DISTRIBUTION WIDTH 15.5 % (11.0-15.5); WHITE BLOOD COUNT (AUTO) 7.1 K/uL (4.8-10.8)
[2019-12-04 09:21] LABS: INR 1.99 (0.85-1.15); PARTIAL THROMBOPLASTIN TIME 54.1 SEC (26.3-35.5); PROTHROMBIN TIME 20.9 SEC (9.6-11.6)
[2019-12-04] MEDS: PROPRANOLOL HCL 20 MG TAB PO SCH ×2 (09:40→21:58)
[2019-12-04] MEDS: FUROSEMIDE 20 MG TABLET PO SCH (09:40)
[2019-12-04] MEDS: FOLIC ACID 1 MG TABLET PO SCH (09:40)
[2019-12-04] MEDS: SPIRONOLACTONE 25 MG TAB PO SCH (09:40)
[2019-12-04] MEDS: PANTOPRAZOLE 40 MG/VIAL IVP SCH (09:40)
[2019-12-04] MEDS: MULTIVITAMIN TABLET PO SCH (09:41)
[2019-12-04] MEDS: MIDODRINE HCL 5 MG TABLET PO SCH ×3 (09:41→22:04)
[2019-12-04] MEDS: THIAMINE HCL 100 MG TABLET PO SCH (09:41)
[2019-12-04] MEDS: POTASSIUM CHLORIDE 10 MEQ/TAB.SA PO SCH (09:41)
[2019-12-04] MEDS: RIFAXIMIN 550 MG TABLET PO SCH ×2 (09:41→21:58)
[2019-12-04] MEDS: MAGNESIUM OXIDE 400 MG TABLET PO SCH ×2 (09:41→21:58)
[2019-12-04] MEDS: DULOXETINE HCL 30 MG CAP PO SCH (21:58)
[2019-12-05 03:35] VITALS: BP 138/81
[2019-12-05] MEDS: ZOSYN 3.375GM+NS 50ML 50 ML IV SCH (04:58)
[2019-12-05 06:29] LABS: BASOPHILS % (AUTO) 0.8 % (0.0-5.0); EOSINOPHILS % (AUTO) 3.3 % (0.0-8.0); HEMATOCRIT 34.4 % (42-54); MEAN CORPUSCULAR HEMOGLOBIN 38.3 pg (27.0-33.0); MEAN CORPUSCULAR HGB CONC 34.6 g/dL (32.0-36.0); MEAN CORPUSCULAR VOLUME 110.6 fL (79-99); NEUTROPHILS % (AUTO) 65.5 % (40.0-77.0); PLATELET COUNT (AUTO) 88 K/uL (130-400); RED BLOOD CELL COUNT(AUTO) 3.11 MIL/uL (4.50-6.20); RED CELL DISTRIBUTION WIDTH 15.2 % (11.0-15.5); WHITE BLOOD COUNT (AUTO) 7.2 K/uL (4.8-10.8)
[2019-12-05 06:51] LABS: ALBUMIN 0.9 g/dL (3.5-5.0); BILIRUBIN,TOTAL 11.1 mg/dL (0.2-1.0); CREATININE 0.9 mg/dL (0.5-1.5); POTASSIUM 3.3 mmol/L (3.5-5.1); TOTAL PROTEIN, SERUM 6.9 g/dL (6.0-8.3)
[2019-12-05 08:18] VITALS: BP 115/71
[2019-12-05] MEDS: LACTULOSE 20 GM/30 ML UDCUP PO SCH ×3 (10:07→21:01)
[2019-12-05] MEDS: MAGNESIUM OXIDE 400 MG TABLET PO SCH ×2 (10:08→21:02)
[2019-12-05] MEDS: MULTIVITAMIN TABLET PO SCH (10:08)
[2019-12-05] MEDS: MIDODRINE HCL 5 MG TABLET PO SCH ×3 (10:08→21:01)
[2019-12-05] MEDS: FOLIC ACID 1 MG TABLET PO SCH (10:08)
[2019-12-05] MEDS: PROPRANOLOL HCL 20 MG TAB PO SCH ×2 (10:08→21:01)
[2019-12-05] MEDS: FUROSEMIDE 20 MG TABLET PO SCH (10:08)
[2019-12-05] MEDS: RIFAXIMIN 550 MG TABLET PO SCH ×2 (10:08→21:00)
[2019-12-05] MEDS: THIAMINE HCL 100 MG TABLET PO SCH (10:08)
[2019-12-05] MEDS: SPIRONOLACTONE 25 MG TAB PO SCH (10:08)
[2019-12-05] MEDS: POTASSIUM CHLORIDE 10 MEQ/TAB.SA PO SCH (10:09)
[2019-12-05] MEDS: PANTOPRAZOLE 40 MG/VIAL IVP SCH (10:09)
[2019-12-05 12:51] VITALS: BP 118/72
[2019-12-05 16:32] VITALS: BP 117/78
[2019-12-05] MEDS: POTASSIUM CHLORIDE 10% ELIXIR 20 MEQ/15 ML UDCUP PO PRN ×2 (16:59→18:38)
[2019-12-05 20:08] VITALS: BP 130/78
[2019-12-05] MEDS: DULOXETINE HCL 30 MG CAP PO SCH (21:01)
[2019-12-05 23:33] VITALS: BP 132/79
[2019-12-06 03:45] VITALS: BP 121/69
[2019-12-06 06:16] LABS: BASOPHILS % (AUTO) 0.7 % (0.0-5.0); EOSINOPHILS % (AUTO) 3.3 % (0.0-8.0); HEMATOCRIT 31.5 % (42-54); LYMPHOCYTES % (AUTO) 16.3 % (21.0-51.0); MEAN CORPUSCULAR HEMOGLOBIN 37.6 pg (27.0-33.0); MEAN CORPUSCULAR HGB CONC 34.3 g/dL (32.0-36.0); MEAN CORPUSCULAR VOLUME 109.8 fL (79-99); MONOCYTES % (AUTO) 12.3 % (3.0-13.0); PLATELET COUNT (AUTO) 98 K/uL (130-400); RED BLOOD CELL COUNT(AUTO) 2.87 MIL/uL (4.50-6.20); WHITE BLOOD COUNT (AUTO) 10.2 K/uL (4.8-10.8)
[2019-12-06 06:48] LABS: ALBUMIN 0.9 g/dL (3.5-5.0); BILIRUBIN,TOTAL 10.5 mg/dL (0.2-1.0); POTASSIUM 3.2 mmol/L (3.5-5.1); TOTAL PROTEIN, SERUM 6.9 g/dL (6.0-8.3)
[2019-12-06 08:00] VITALS: BP 117/68
[2019-12-06] MEDS: PANTOPRAZOLE 40 MG/VIAL IVP SCH (09:23)
[2019-12-06] MEDS: FOLIC ACID 1 MG TABLET PO SCH (09:23)
[2019-12-06] MEDS: SPIRONOLACTONE 25 MG TAB PO SCH (09:23)
[2019-12-06] MEDS: LACTULOSE 20 GM/30 ML UDCUP PO SCH ×3 (09:23→20:20)
[2019-12-06] MEDS: RIFAXIMIN 550 MG TABLET PO SCH ×2 (09:23→20:19)
[2019-12-06] MEDS: THIAMINE HCL 100 MG TABLET PO SCH (09:23)
[2019-12-06] MEDS: MULTIVITAMIN TABLET PO SCH (09:24)
[2019-12-06] MEDS: POTASSIUM CHLORIDE 10 MEQ/TAB.SA PO SCH (09:24)
[2019-12-06] MEDS: MIDODRINE HCL 5 MG TABLET PO SCH ×3 (09:24→20:19)
[2019-12-06] MEDS: MAGNESIUM OXIDE 400 MG TABLET PO SCH ×2 (09:24→20:19)
[2019-12-06] MEDS: FUROSEMIDE 20 MG TABLET PO SCH (09:24)
[2019-12-06] MEDS: PROPRANOLOL HCL 20 MG TAB PO SCH ×2 (09:25→20:19)
[2019-12-06 11:53] VITALS: BP 129/64
[2019-12-06 16:00] VITALS: BP 116/55
[2019-12-06 20:08] VITALS: BP 138/78
[2019-12-06] MEDS: DULOXETINE HCL 30 MG CAP PO SCH (20:19)
[2019-12-06] MEDS: POTASSIUM CHLORIDE 10% ELIXIR 20 MEQ/15 ML UDCUP PO PRN (20:20)
[2019-12-06] MEDS: POTASSIUM CHLORIDE 20 MEQ ERTAB PO PRN (22:25)
[2019-12-06 23:33] VITALS: BP 128/52
[2019-12-07] MEDS: POTASSIUM CHLORIDE 20 MEQ ERTAB PO PRN (00:44)
[2019-12-07 03:39] VITALS: BP 106/73
[2019-12-07 06:06] LABS: BASOPHILS % (AUTO) 0.6 % (0.0-5.0); EOSINOPHILS % (AUTO) 3.6 % (0.0-8.0); HEMATOCRIT 36.3 % (42-54); LYMPHOCYTES % (AUTO) 21.4 % (21.0-51.0); MEAN CORPUSCULAR HEMOGLOBIN 37.7 pg (27.0-33.0); MEAN CORPUSCULAR HGB CONC 33.9 g/dL (32.0-36.0); MEAN CORPUSCULAR VOLUME 111.3 fL (79-99); MONOCYTES % (AUTO) 11.8 % (3.0-13.0); NEUTROPHILS % (AUTO) 62.3 % (40.0-77.0); PLATELET COUNT (AUTO) 106 K/uL (130-400); RED BLOOD CELL COUNT(AUTO) 3.26 MIL/uL (4.50-6.20); RED CELL DISTRIBUTION WIDTH 15.1 % (11.0-15.5); WHITE BLOOD COUNT (AUTO) 7.7 K/uL (4.8-10.8)
[2019-12-07 06:21] LABS: BILIRUBIN,TOTAL 10.8 mg/dL (0.2-1.0); POTASSIUM 3.5 mmol/L (3.5-5.1); TOTAL PROTEIN, SERUM 7.3 g/dL (6.0-8.3)
[2019-12-07 07:30] VITALS: BP 111/57
--- NOTE | 2019-12-07 08:20 | NUR ---
Call from pt's dtr. Anh, requesting assistance with contacting [facility] in order to obtain pt's belongings that were left there at his last admission. Anh provided contact name for counselor Malissa Perez/[phone]. 10:25-SW contacted Malissa Perez at [facility] who reported that she is the Facility Director and reviewed policies with this worker, stating that she would need to speak w/pt. for consent to release. Ms. Malissa Perez informed that pt. is sometimes confused, however, call would be facilitated. 10:30 SW visited pt's room, pt. is awake, alert and oriented. Pt. informed of reason for visit; to contact [facility] to speak w/Ms. Perez; pt. verbalized understanding. Call placed and pt. spoke with Ms. Perez, answered questions and provided girlfriend's name Amy Diamond as authorized to medicinal plant picker any belongings that may have stayed behind. Ms. Perez then asked this worker to provide her contact information to Amy Diamond (Christopher) and ask her to f/u with Ms. Perez. 11:10-Pt's dtr. Anh, contacted and informed of above; dtr expressed gratitude for assistance. Amy Diamond/Christopher contacted and given information by Ms. Perez; Christopher stated she would contact Ms. Perez. Saleem/GARY made aware.
[2019-12-07] MEDS: THIAMINE HCL 100 MG TABLET PO SCH (08:33)
[2019-12-07] MEDS: RIFAXIMIN 550 MG TABLET PO SCH ×2 (08:33→21:10)
[2019-12-07] MEDS: LACTULOSE 20 GM/30 ML UDCUP PO SCH ×3 (08:33→21:10)
[2019-12-07] MEDS: PANTOPRAZOLE 40 MG/VIAL IVP SCH (08:33)
[2019-12-07] MEDS: PROPRANOLOL HCL 20 MG TAB PO SCH ×2 (08:34→21:10)
[2019-12-07] MEDS: SPIRONOLACTONE 25 MG TAB PO SCH (08:34)
[2019-12-07] MEDS: FOLIC ACID 1 MG TABLET PO SCH (08:34)
[2019-12-07] MEDS: POTASSIUM CHLORIDE 10 MEQ/TAB.SA PO SCH (08:34)
[2019-12-07] MEDS: MULTIVITAMIN TABLET PO SCH (08:34)
[2019-12-07] MEDS: MIDODRINE HCL 5 MG TABLET PO SCH ×3 (08:34→21:10)
[2019-12-07] MEDS: FUROSEMIDE 20 MG TABLET PO SCH (08:35)
[2019-12-07] MEDS: MAGNESIUM OXIDE 400 MG TABLET PO SCH ×2 (08:35→21:10)
[2019-12-07 11:00] VITALS: BP 113/69
--- NOTE | 2019-12-07 19:11 | NUR ---
PATIENT FELL I WAS NOT ABLE TO WITNESS IT BUT HEARD THE COMMOTION. I WENT TO CHECK AND ASSESSED THE PATIENT, I FOUND THE PATIENT ON THE FLOOR, ON HIS BUTTOCKS, NO BLEEDING, PATIENT DENIES PAIN. DR. ESTRADA WAS OUTSIDE THE ROOM WHEN THE PATIENT FALL AND ALSO ASSESSED THE PATIENT. HE VERBALIZED THAT HE WILL PUT ORDERS A PER FALL PROTOCOL. WILL PUT THE PATIENT ON VITAL SIGNS MONITORING AND NEURO CHECKS PER FALL PROTOCOL. NOTIFIED THE DAUGHTER SHAN ABOUT THE FALL. THE CHARGE NURSE DEBORAH IS ALSO IN THE NURSE STATION WHEN THE FALL HAPPEN. THE BREEN PEOPLE TO BE NOTIFIED WAS HERE WHEN THE PATIENT FALL. PATIENT HAS A YELLOW BAND ON, YELLOW SIGN ON THE DOOR, NON SKID SOCKS AND THE BED ALARM WAS ON. WILL CONTINUE TO MONITOR THE PATIENT.
[2019-12-07 20:00] VITALS: BP 138/81
[2019-12-07] MEDS: DULOXETINE HCL 30 MG CAP PO SCH (21:10)
[2019-12-08 00:29] VITALS: BP 114/88
[2019-12-08 03:53] VITALS: BP 124/72
[2019-12-08 05:48] LABS: BASOPHILS % (AUTO) 0.9 % (0.0-5.0); EOSINOPHILS % (AUTO) 3.6 % (0.0-8.0); LYMPHOCYTES % (AUTO) 22.1 % (21.0-51.0); MEAN CORPUSCULAR HEMOGLOBIN 37.5 pg (27.0-33.0); MEAN CORPUSCULAR HGB CONC 32.9 g/dL (32.0-36.0); MONOCYTES % (AUTO) 10.9 % (3.0-13.0); PLATELET COUNT (AUTO) 57 K/uL (130-400); RED BLOOD CELL COUNT(AUTO) 3.07 MIL/uL (4.50-6.20); RED CELL DISTRIBUTION WIDTH 15.3 % (11.0-15.5); WHITE BLOOD COUNT (AUTO) 6.6 K/uL (4.8-10.8)
[2019-12-08 05:57] LABS: INR 2.1 (0.85-1.15); PARTIAL THROMBOPLASTIN TIME 61.5 SEC (26.3-35.5)
[2019-12-08 05:58] LABS: BILIRUBIN,TOTAL 9.8 mg/dL (0.2-1.0); POTASSIUM 3.4 mmol/L (3.5-5.1); TOTAL PROTEIN, SERUM 7.1 g/dL (6.0-8.3)
[2019-12-08 06:05] LABS: PLATELET MORPHOLOGY COMMENT PLT CLUMPS PRESENT
[2019-12-08] MEDS: POTASSIUM CHLORIDE 20 MEQ ERTAB PO PRN (06:27)
--- NOTE | 2019-12-08 08:30 | NUR ---
spoke with daughter regarding pt care. and planning
[2019-12-08] MEDS: MULTIVITAMIN TABLET PO SCH (09:52)
[2019-12-08] MEDS: LACTULOSE 20 GM/30 ML UDCUP PO SCH ×3 (09:52→20:51)
[2019-12-08] MEDS: THIAMINE HCL 100 MG TABLET PO SCH (09:53)
[2019-12-08] MEDS: PANTOPRAZOLE 40 MG/VIAL IVP SCH (09:53)
[2019-12-08] MEDS: POTASSIUM CHLORIDE 10 MEQ/TAB.SA PO SCH (09:53)
[2019-12-08] MEDS: PROPRANOLOL HCL 20 MG TAB PO SCH ×2 (09:53→20:51)
[2019-12-08] MEDS: MIDODRINE HCL 5 MG TABLET PO SCH ×3 (09:53→20:50)
[2019-12-08] MEDS: MAGNESIUM OXIDE 400 MG TABLET PO SCH ×2 (09:53→20:52)
[2019-12-08] MEDS: FOLIC ACID 1 MG TABLET PO SCH (09:53)
[2019-12-08] MEDS: FUROSEMIDE 20 MG TABLET PO SCH (09:53)
[2019-12-08] MEDS: SPIRONOLACTONE 25 MG TAB PO SCH (09:56)
[2019-12-08] MEDS: RIFAXIMIN 550 MG TABLET PO SCH ×2 (09:56→20:50)
[2019-12-08 12:00] VITALS: BP 110/71
[2019-12-08 14:33] VITALS: BP 110/57
[2019-12-08] MEDS ORDERED: PHARMACY COMMUNICATION MISC SCH (16:30)
--- NOTE | 2019-12-08 17:33 | NUR ---
DR. KRISTAN CARDENAS HERE , AND ASSESS PT. WITH ORDERS TO FOLLOW CT OF THE HEAD/BRAIN DONE WITHOUT CONTRAST .. RESULTS PENDING.
[2019-12-08 18:54] VITALS: BP 100/66
[2019-12-08 20:33] VITALS: BP 124/79
[2019-12-08] MEDS: DULOXETINE HCL 30 MG CAP PO SCH (20:51)
[2019-12-09] VITALS: BP 109/65
[2019-12-09 04:00] VITALS: BP 112/59
[2019-12-09 06:50] LABS: BASOPHILS % (AUTO) 0.9 % (0.0-5.0); EOSINOPHILS % (AUTO) 3.9 % (0.0-8.0); HEMATOCRIT 31.2 % (42-54); LYMPHOCYTES % (AUTO) 19.7 % (21.0-51.0); MEAN CORPUSCULAR HGB CONC 33.3 g/dL (32.0-36.0); MONOCYTES % (AUTO) 12.8 % (3.0-13.0); NEUTROPHILS % (AUTO) 62.4 % (40.0-77.0); PLATELET COUNT (AUTO) 91 K/uL (130-400); RED BLOOD CELL COUNT(AUTO) 2.81 MIL/uL (4.50-6.20); RED CELL DISTRIBUTION WIDTH 14.7 % (11.0-15.5); WHITE BLOOD COUNT (AUTO) 7.7 K/uL (4.8-10.8)
[2019-12-09 07:03] LABS: ALBUMIN 0.8 g/dL (3.5-5.0); BILIRUBIN,TOTAL 8.6 mg/dL (0.2-1.0); CREATININE 0.9 mg/dL (0.5-1.5); POTASSIUM 3.4 mmol/L (3.5-5.1); TOTAL PROTEIN, SERUM 6.8 g/dL (6.0-8.3)
[2019-12-09 08:00] VITALS: BP 123/86
[2019-12-09] MEDS ORDERED: METHYLPHENIDATE HCL 5 MG TABLET PO SCH (09:00)
[2019-12-09] MEDS: PANTOPRAZOLE 40 MG/VIAL IVP SCH (10:44)
[2019-12-09] MEDS: FOLIC ACID 1 MG TABLET PO SCH (10:45)
[2019-12-09] MEDS: SPIRONOLACTONE 25 MG TAB PO SCH (10:45)
[2019-12-09] MEDS: PROPRANOLOL HCL 20 MG TAB PO SCH ×2 (10:46→20:35)
[2019-12-09] MEDS: LACTULOSE 20 GM/30 ML UDCUP PO SCH ×3 (10:46→20:35)
[2019-12-09] MEDS: MULTIVITAMIN TABLET PO SCH (10:47)
[2019-12-09] MEDS: POTASSIUM CHLORIDE 10 MEQ/TAB.SA PO SCH (10:47)
[2019-12-09] MEDS: FUROSEMIDE 20 MG TABLET PO SCH (10:47)
[2019-12-09] MEDS: MAGNESIUM OXIDE 400 MG TABLET PO SCH ×2 (10:47→20:35)
[2019-12-09] MEDS: RIFAXIMIN 550 MG TABLET PO SCH ×2 (10:48→20:35)
[2019-12-09] MEDS: MIDODRINE HCL 5 MG TABLET PO SCH ×3 (10:48→20:35)
[2019-12-09] MEDS: THIAMINE HCL 100 MG TABLET PO SCH (10:49)
[2019-12-09] MEDS: POTASSIUM CHLORIDE 20 MEQ ERTAB PO PRN (11:09)
[2019-12-09 12:00] VITALS: BP 122/87
[2019-12-09 16:00] VITALS: BP 109/64
[2019-12-09 20:00] VITALS: BP 145/81
[2019-12-09] MEDS: ZOLPIDEM TARTRATE 5 MG TAB PO PRN (20:35)
[2019-12-09] MEDS: DULOXETINE HCL 30 MG CAP PO SCH (20:35)
[2019-12-10] VITALS (7 sets, daily range): BP systolic 119–157; BP diastolic 56–76
[2019-12-10 03:49] LABS: BASOPHILS % (AUTO) 0.8 % (0.0-5.0); HEMATOCRIT 30.7 % (42-54); LYMPHOCYTES % (AUTO) 25.2 % (21.0-51.0); MEAN CORPUSCULAR HGB CONC 33.9 g/dL (32.0-36.0); MEAN CORPUSCULAR VOLUME 109.3 fL (79-99); MONOCYTES % (AUTO) 11.9 % (3.0-13.0); NEUTROPHILS % (AUTO) 57.8 % (40.0-77.0); PLATELET COUNT (AUTO) 83 K/uL (130-400); RED BLOOD CELL COUNT(AUTO) 2.81 MIL/uL (4.50-6.20); RED CELL DISTRIBUTION WIDTH 14.3 % (11.0-15.5); WHITE BLOOD COUNT (AUTO) 6.5 K/uL (4.8-10.8)
[2019-12-10 04:07] LABS: ALBUMIN 0.8 g/dL (3.5-5.0); BILIRUBIN,TOTAL 7.9 mg/dL (0.2-1.0); CREATININE 1.1 mg/dL (0.5-1.5); POTASSIUM 3.6 mmol/L (3.5-5.1); TOTAL PROTEIN, SERUM 6.5 g/dL (6.0-8.3)
[2019-12-10] MEDS: PANTOPRAZOLE 40 MG/VIAL IVP SCH (10:19)
[2019-12-10] MEDS: SPIRONOLACTONE 25 MG TAB PO SCH (10:20)
[2019-12-10] MEDS: LACTULOSE 20 GM/30 ML UDCUP PO SCH ×3 (10:21→21:26)
[2019-12-10] MEDS: PROPRANOLOL HCL 20 MG TAB PO SCH ×2 (10:21→21:26)
[2019-12-10] MEDS: POTASSIUM CHLORIDE 10 MEQ/TAB.SA PO SCH (10:22)
[2019-12-10] MEDS: MULTIVITAMIN TABLET PO SCH (10:22)
[2019-12-10] MEDS: MIDODRINE HCL 5 MG TABLET PO SCH ×3 (10:23→21:26)
[2019-12-10] MEDS: RIFAXIMIN 550 MG TABLET PO SCH ×2 (10:24→21:26)
[2019-12-10] MEDS: THIAMINE HCL 100 MG TABLET PO SCH (10:24)
[2019-12-10] MEDS: MAGNESIUM OXIDE 400 MG TABLET PO SCH ×2 (10:24→21:26)
[2019-12-10] MEDS: FOLIC ACID 1 MG TABLET PO SCH (10:25)
[2019-12-10] MEDS: FUROSEMIDE 20 MG TABLET PO SCH (10:28)
[2019-12-10] MEDS: DULOXETINE HCL 30 MG CAP PO SCH (21:26)
[2019-12-11 04:45] VITALS: BP 122/64
[2019-12-11] MEDS: LACTULOSE 20 GM/30 ML UDCUP PO SCH ×2 (10:02→14:53)
[2019-12-11] MEDS: PANTOPRAZOLE 40 MG/VIAL IVP SCH (10:02)
[2019-12-11] MEDS: MULTIVITAMIN TABLET PO SCH (10:03)
[2019-12-11] MEDS: MAGNESIUM OXIDE 400 MG TABLET PO SCH (10:03)
[2019-12-11] MEDS: FUROSEMIDE 20 MG TABLET PO SCH (10:03)
[2019-12-11] MEDS: FOLIC ACID 1 MG TABLET PO SCH (10:03)
[2019-12-11] MEDS: RIFAXIMIN 550 MG TABLET PO SCH (10:03)
[2019-12-11] MEDS: POTASSIUM CHLORIDE 10 MEQ/TAB.SA PO SCH (10:03)
[2019-12-11] MEDS: PROPRANOLOL HCL 20 MG TAB PO SCH (10:03)
[2019-12-11] MEDS: MIDODRINE HCL 5 MG TABLET PO SCH ×2 (10:03→14:53)
[2019-12-11] MEDS: THIAMINE HCL 100 MG TABLET PO SCH (10:03)
[2019-12-11] MEDS: SPIRONOLACTONE 25 MG TAB PO SCH (10:04)
[2019-12-11] MEDS ORDERED: RIFA550T PO (13:08)
[2019-12-11] MEDS ORDERED: THIA100T91 PO (13:08)
[2019-12-11] MEDS ORDERED: LACT PO (13:08)
[2019-12-11] MEDS ORDERED: DULO30CA2 PO (13:08)
[2019-12-11] MEDS ORDERED: Midodrine Hcl PO (13:08)
[2019-12-11] MEDS ORDERED: PANT40TA PO (13:08)
[2019-12-11] MEDS ORDERED: FURO20TA6 PO (13:08)
[2019-12-11] MEDS ORDERED: SPIR25TA PO (13:08)
[2019-12-11] MEDS ORDERED: FOLI1 PO (13:08)
--- NOTE | 2019-12-11 13:49 | NUR ---
SPOKE TO PATIENT'S DAUGHTER ( SHAN ) REGARDING DISCHARGE HOME. PER SHAN, WILL NEED TO MAKE ARRANGEMENTS TO TAKE HIM HOME. WILL CALL BACK TODAY WHEN ARRANGEMENTS ARE MADE.
--- NOTE | 2019-12-11 18:00 | NUR ---
DISCHARGE PATIENT GIVEN DISCHARGE INSTRUCTIONS VIA TEACH BACK. INSTRUCTIONS GIVEN OVER THE PHONE TO MONICA BAKER (GIRLFRIEND). PATIENT TO CONTINUE MEDICATIONS ORDERED BY MD. MAKE FOLLOW UP APPOINTMENT WITH PCP IN 3 TO 5 DAYS. PATIENT WHEELED TO [facility] BY LESLEY PASTRANA AND MARIAM LAUGHLIN FOR DISCHARGE.
== END 2019-12-11 18:00 | disposition home or self-care (01) | DRG 432 ==
LOC: EDH 16:14 → EDHIP 16:15 → 3DH 23:20 → DAHIP 11-25 11:08 → 3BH 11-28 16:55
PROVIDERS: ADMIT Internal Medicine; ATTEND Internal Medicine
DX: K70.11 Alcoholic hepatitis with ascites (principal); E43 Unspecified severe protein-calorie malnutrition; N39.0 Urinary tract infection, site not specified; K76.6 Portal hypertension; K92.2 Gastrointestinal hemorrhage, unspecified; J98.11 Atelectasis; K72.90 Hepatic failure, unspecified without coma; K81.9 Cholecystitis, unspecified; E87.6 Hypokalemia; F10.10 Alcohol abuse, uncomplicated; K21.9 Gastro-esophageal reflux disease without esophagitis; D69.6 Thrombocytopenia, unspecified; D53.9 Nutritional anemia, unspecified; Z68.30 Body mass index [BMI] 30.0-30.9, adult; K70.31 Alcoholic cirrhosis of liver with ascites; Z68.31 Body mass index [BMI] 31.0-31.9, adult; E66.9 Obesity, unspecified; E83.42 Hypomagnesemia; I10 Essential (primary) hypertension; I73.9 Peripheral vascular disease, unspecified; K72.10 Chronic hepatic failure without coma; R13.10 Dysphagia, unspecified
CPT/HCPCS: 36415; 36600; 70450; 71045; 73521; 74177; 74181; 76705; 78227; 80048; 80053; 80076; 80305; 81001; 82140; 82435; 82550; 82803; 82947; 82948; 83605; 83690; 83735; 83874; 84132; 84145; 84295; 84484; 85018; 85025; 85610; 85730; 87040; 87088; 92610; 93005; 97039; 99291; A9537; C9113; G0378; J0696; J1170; J2060; J2405; J2543; J3411; J3475; J3480; J3490; J7030; J7050; Q0163; Q9967

== ENCOUNTER 2020-01-07 15:35 | Inpatient (IN) | payer OTHER ==
[~2020-01-07] VITALS: Ht 167.6 cm; Wt 83.4 kg
[~2020-01-07 15:35] MED LIST changes: +DULO30CA2 PO; +FOLI1 PO; -FOLI1TAB15 PO; +FURO20TA6 PO; +LACT PO; -LORA1TAB3 PO; -LOSA50TA64 PO; +MAGN400T8 PO; +Midodrine Hcl PO; -PROP20TA96 PO; +RIFA550T PO; +SPIR25TA PO; +THIA100T91 PO
[2020-01-07 16:01] LABS: BASOPHILS % (AUTO) 0.5 % (0.0-5.0); EOSINOPHILS % (AUTO) 2.7 % (0.0-8.0); LYMPHOCYTES % (AUTO) 30.5 % (21.0-51.0); MEAN CORPUSCULAR HEMOGLOBIN 33.8 pg (27.0-33.0); MEAN CORPUSCULAR HGB CONC 34.5 g/dL (32.0-36.0); MEAN CORPUSCULAR VOLUME 97.9 fL (79-99); MONOCYTES % (AUTO) 6.2 % (3.0-13.0); NEUTROPHILS % (AUTO) 59.9 % (40.0-77.0); PLATELET COUNT (AUTO) 63 K/uL (130-400); RED BLOOD CELL COUNT(AUTO) 3.37 MIL/uL (4.50-6.20); RED CELL DISTRIBUTION WIDTH 14.8 % (11.0-15.5)
[2020-01-07] MEDS ORDERED: MORPHINE SULFATE 4 MG/1ML SYG ONE (16:10)
[2020-01-07] MEDS ORDERED: ONDANSETRON HCL 4 MG/2 ML VIAL ONE ×2 (16:10→21:57)
[2020-01-07 16:16] LABS: CREATININE 1.1 mg/dL (0.5-1.5); POTASSIUM 4.6 mmol/L (3.5-5.1)
--- NOTE | 2020-01-07 16:32 | NUR ---
RE: PARACENTESIS PATIENT SCHEDULED FOR PARACENTESIS FOR TODAY. INR-2.45 FROM 12/27/19 AND PENDING CURRENT PTPTT AND INR. DR Andrez GUEVARA NOTIFIED AND STATED TO RESCHEDULE FOR TOMORROW WHEN INR IS BELOW 2.0. Pily MISTRY RN NOTIFIED OF PROCEDURE OUTCOME.
[2020-01-07 16:34] LABS: ALBUMIN 1.2 g/dL (3.5-5.0); BILIRUBIN,TOTAL 7.1 mg/dL (0.2-1.0); TOTAL PROTEIN, SERUM 7.7 g/dL (6.0-8.3)
[2020-01-07 17:09] LABS: INR 2.54 (0.85-1.15); PARTIAL THROMBOPLASTIN TIME 68.9 SEC (26.3-35.5); PROTHROMBIN TIME 26.5 SEC (9.6-11.6)
[2020-01-07] MEDS ORDERED: ACETAMINOPHEN 325 MG TAB PO PRN (17:30)
[2020-01-07] MEDS ORDERED: ONDANSETRON HCL 4 MG/2 ML VIAL IVP PRN (17:30)
[2020-01-07] MEDS ORDERED: HYDROMORPHONE 1 MG/1 ML AMP IVP PRN (17:30)
[2020-01-07] MEDS: FAMOTIDINE/PF 20 MG/2 ML VIAL IV SCH (21:00)
[2020-01-07] MEDS ORDERED: HYDROMORPHONE 1 MG/1 ML AMP ONE (21:48)
[2020-01-07] MEDS ORDERED: FAMOTIDINE/PF 20 MG/2 ML VIAL IV ONE (21:49)
[2020-01-08] VITALS (14 sets, daily range): BP systolic 115–149; BP diastolic 59–99
--- NOTE | 2020-01-08 00:20 | NUR ---
ADMIT PT ADMITTED TO ROOM 308,AAOX3. COMPLAINTS OF ABDOMINAL PAINS. ADMISSION CARE DONE. V/S MONITORED, NOTED TO BE TACHYCARDIC AT 155 BPM HR. ADMISSION DATA BASE COMPLETED. PT VERBALIZES UNDERSTANDING OF IS PROCEDURE TO BE DONE. CONSENT FOR US PARACENTESIS SIGNED BY PT AND WITNESSED BY WASTEWATER PLANT OPERATOR. ADMINISTERED MORPHINE FOR PAINS. TELE MONITOR PLACED RHYTHM NOTED AT [facility] PLACED TO BLE. ORIENTED TO ROOM AND UNIT. IN FOR MORE CARE AND MANAGEMENT. Addendum: 01/08/20 at 0200 by CARLITO HOOVER RN RN Amended: Links added.
[2020-01-08] MEDS: MORPHINE SULFATE 4 MG/1ML SYG IV PRN ×3 (00:45→17:18)
--- NOTE | 2020-01-08 02:00 | NUR ---
ROUNDS PT IS RESTING WELL, FAIRLY ASLEEP. STILL ST WITH AV=[phone] BPM. KEPT UNDISTURBED FOR NOW. WILL CONTINUE TO MONITOR.
[2020-01-08 03:55] LABS: BASOPHILS % (AUTO) 0.3 % (0.0-5.0); EOSINOPHILS % (AUTO) 0.1 % (0.0-8.0); HEMATOCRIT 32.9 % (42-54); LYMPHOCYTES % (AUTO) 14.1 % (21.0-51.0); MEAN CORPUSCULAR HEMOGLOBIN 34.2 pg (27.0-33.0); MEAN CORPUSCULAR HGB CONC 34.7 g/dL (32.0-36.0); MEAN CORPUSCULAR VOLUME 98.8 fL (79-99); MONOCYTES % (AUTO) 6.6 % (3.0-13.0); NEUTROPHILS % (AUTO) 78.6 % (40.0-77.0); PLATELET COUNT (AUTO) 105 K/uL (130-400); RED BLOOD CELL COUNT(AUTO) 3.33 MIL/uL (4.50-6.20); RED CELL DISTRIBUTION WIDTH 14.7 % (11.0-15.5); WHITE BLOOD COUNT (AUTO) 7.9 K/uL (4.8-10.8)
[2020-01-08 04:03] LABS: ALBUMIN 1.3 g/dL (3.5-5.0); CREATININE 1.3 mg/dL (0.5-1.5); TOTAL PROTEIN, SERUM 8.1 g/dL (6.0-8.3)
--- NOTE | 2020-01-08 06:45 | NUR ---
PAIN PT COMPLAINTS OF ABDOMINAL PAINS. MEDICATED WITH MORPHINE IV. KEPT COMFORTABLE IN BED. FOR MORE CARE AND MANAGEMENT.
[2020-01-08] MEDS ORDERED: PHYTONADIONE 10 MG/1 ML AMP IM SCH (08:15)
--- NOTE | 2020-01-08 08:23 | NUR ---
RE: PARACENTESIS INR-2.[address] Mireille COLEY. DR Mireille COLEY RECOMMENDS THE INR TO BE CORRECTED WITH AN INR LESS THAN 2.0. S ISAIAS VALE NOTIFIED OF PROCEDURE OUTCOME.
[2020-01-08 08:37] LABS: INR 2.5 (0.85-1.15); PROTHROMBIN TIME 26.1 SEC (9.6-11.6)
[2020-01-08] MEDS: LACTULOSE 20 GM/30 ML UDCUP PO SCH ×3 (09:35→19:54)
[2020-01-08] MEDS: FAMOTIDINE/PF 20 MG/2 ML VIAL IV SCH ×2 (09:36→19:54)
[2020-01-08] MEDS: FOLIC ACID 1 MG TABLET PO SCH (09:36)
[2020-01-08] MEDS: MIDODRINE HCL 5 MG TABLET PO SCH ×3 (09:36→19:55)
[2020-01-08] MEDS: RIFAXIMIN 550 MG TABLET PO SCH ×2 (09:36→19:54)
[2020-01-08] MEDS: SPIRONOLACTONE 25 MG TAB PO SCH (09:36)
[2020-01-08] MEDS: FUROSEMIDE 20 MG TABLET PO SCH (09:36)
[2020-01-08] MEDS: THIAMINE HCL 100 MG TABLET PO SCH (09:36)
[2020-01-08] MEDS ORDERED: ALBUMIN (HUMAN) 25% 200 ML IV SCH ×2 (10:00→16:30)
[2020-01-08 13:19] LABS: INR 2.47 (0.85-1.15); PROTHROMBIN TIME 25.8 SEC (9.6-11.6)
--- NOTE | 2020-01-08 15:15 | NUR ---
U/S GUIDED PARACENTESIS PROCEDURE PERFORMED BY DR. Mireille COLEY. PUNCTURE SITE RIGHT LOWER QUADRANT AND PATIENT TOLERATED PROCEDURE WELL. 2ND UNIT FFP INFUSION DURING PROCEDURE. TOTAL REMOVED 7.7 LITERS OF DARK YELLOW/GREEN CLOUDY ASCITES FLUID. END OF PROCEDURE AT 1500. CATHETER REMOVED AND DRESSING APPLIED. NO BLEEDING NOTED. ALBUMIN 25% 50 GRAMS ORDERED TO BE GIVEN IV UPON ARRIVAL TO FLOOR. REPORT GIVEN TO Carmina VALE LVN AND PATIENT TRANSPORTED TO [facility]- VIA BED. PT STABLE, AAO X 3 WITH NO C/O PAIN. SPECIMEN SENT TO LAB.
[2020-01-08 16:12] LABS: APPEARANCE BODY FLUID CLOUDY (CLEAR); COLOR,BODY FLUID DARK YELLOW (LT YELLOW); SPECIMENTYPE,BODY FLUID ASCITES; TOTAL VOLUME,BODY FLUID 7700 mL
[2020-01-08 16:13] LABS: BODY FLUID WBC 4635 /cu. mm.
[2020-01-08 16:14] LABS: BODY FLUID RBC 775 /cu. mm.
[2020-01-08 16:45] LABS: BF LYMPHOCYTE 13 %
[2020-01-08 16:46] LABS: BF MESOTHELIAL 7 %
--- NOTE | 2020-01-08 17:46 | NUR ---
SPOKE TO PATIENT AT BEDSIDE FOR DC PLANNING LIVE W GIRLFRIEND PARTNER TANIA, WHO PROVIDES TRANSPORT, STATES SHE HELPS HIM WITH ALL ADLS. [facility] IS PURSUING DISABILITY SECOND TO CIRRHOSIS, [facility] QUIT DRINKING A WEEK AGO [facility] HAS A WHEELCHAIR ,ROLLING WALKER AND A SAFE BATHROOM. DCP IS HOME, TO FOLLOW. PATIENT SEE KRISTAN ROBLEDO A PCP. PATIENT GIVEN INFO ON THE [employer] ON THE PHONE AND VERBALIZED UNDERSTANDING OF SAME Addendum: 01/08/20 at 1751 by SHIVA JACOBSEN RN CM Amended: Links added.
[2020-01-08] MEDS ORDERED: ALBUMIN (HUMAN) 25% 200 ML IV ONE (18:30)
[2020-01-08] MEDS ORDERED: DULOXETINE HCL 30 MG CAP ONE (18:33)
[2020-01-08] MEDS: DULOXETINE HCL 30 MG CAP PO SCH (19:54)
[2020-01-08] MEDS ORDERED: PHARMACY COMMUNICATION MISC SCH (23:00)
[2020-01-09] MEDS: CEFTRIAXONE SODIUM 1 GM ONE ×2 (00:05→00:59)
--- NOTE | 2020-01-09 00:05 | NUR ---
2 GRAMS OF ROCEPHIN GIVEN MAMACHEN MONROE ORDERED
[2020-01-09] MEDS: CEFTRIAXONE SODIUM 1 GM IVP SCH ×2 (00:59→22:13)
[2020-01-09 03:58] VITALS: BP 144/71
[2020-01-09] MEDS ORDERED: PANTOPRAZOLE SODIUM 40 MG TABLET.DR ONE (05:29)
[2020-01-09] MEDS: PANTOPRAZOLE SODIUM 40 MG TABLET.DR PO SCH (05:37)
[2020-01-09 05:46] LABS: BASOPHILS % (AUTO) 0.1 % (0.0-5.0); EOSINOPHILS % (AUTO) 0.3 % (0.0-8.0); HEMATOCRIT 29.7 % (42-54); LYMPHOCYTES % (AUTO) 11.2 % (21.0-51.0); MEAN CORPUSCULAR HEMOGLOBIN 33.7 pg (27.0-33.0); MEAN CORPUSCULAR HGB CONC 34.7 g/dL (32.0-36.0); MEAN CORPUSCULAR VOLUME 97.1 fL (79-99); MONOCYTES % (AUTO) 10.2 % (3.0-13.0); NEUTROPHILS % (AUTO) 77.7 % (40.0-77.0); PLATELET COUNT (AUTO) 63 K/uL (130-400); RED BLOOD CELL COUNT(AUTO) 3.06 MIL/uL (4.50-6.20); RED CELL DISTRIBUTION WIDTH 14.7 % (11.0-15.5); WHITE BLOOD COUNT (AUTO) 9.2 K/uL (4.8-10.8)
[2020-01-09 06:06] LABS: ALBUMIN 1.9 g/dL (3.5-5.0); CREATININE 1.5 mg/dL (0.5-1.5); POTASSIUM 3.8 mmol/L (3.5-5.1); TOTAL PROTEIN, SERUM 6.9 g/dL (6.0-8.3)
[2020-01-09] MEDS: MORPHINE SULFATE 4 MG/1ML SYG IV PRN ×2 (06:38→15:57)
[2020-01-09 08:00] VITALS: BP 119/59
[2020-01-09] MEDS: FUROSEMIDE 20 MG TABLET PO SCH (09:00)
[2020-01-09] MEDS: SPIRONOLACTONE 25 MG TAB PO SCH (09:00)
[2020-01-09] MEDS: FOLIC ACID 1 MG TABLET PO SCH (09:27)
[2020-01-09] MEDS: RIFAXIMIN 550 MG TABLET PO SCH ×2 (09:27→21:12)
[2020-01-09] MEDS: FAMOTIDINE/PF 20 MG/2 ML VIAL IV SCH ×2 (09:27→21:12)
[2020-01-09] MEDS: THIAMINE HCL 100 MG TABLET PO SCH (09:27)
[2020-01-09] MEDS: LACTULOSE 20 GM/30 ML UDCUP PO SCH ×3 (09:27→21:12)
[2020-01-09] MEDS: MIDODRINE HCL 5 MG TABLET PO SCH ×3 (09:28→21:12)
[2020-01-09 11:00] VITALS: BP 124/79
[2020-01-09] MEDS ORDERED: PHARMACY COMMUNICATION MISC SCH (11:00)
[2020-01-09 16:00] VITALS: BP 95/65
[2020-01-09 16:53] LABS: CREATININE,URINE RANDOM 179 mg/dL (30-135); SODIUM,URINE RANDOM < 15 mmol/l (40-220)
[2020-01-09 20:43] VITALS: BP 118/71
[2020-01-09] MEDS: DULOXETINE HCL 30 MG CAP PO SCH (21:12)
[2020-01-09 23:53] VITALS: BP 146/83
[2020-01-10 04:19] VITALS: BP 133/79
[2020-01-10 06:19] LABS: MEAN CORPUSCULAR HGB CONC 35.2 g/dL (32.0-36.0); MEAN CORPUSCULAR VOLUME 96.6 fL (79-99); RED BLOOD CELL COUNT(AUTO) 3.21 MIL/uL (4.50-6.20); RED CELL DISTRIBUTION WIDTH 14.7 % (11.0-15.5); WHITE BLOOD COUNT (AUTO) 9.2 K/uL (4.8-10.8)
[2020-01-10] MEDS: PANTOPRAZOLE SODIUM 40 MG TABLET.DR PO SCH (06:36)
[2020-01-10 07:05] LABS: CREATININE 1.2 mg/dL (0.5-1.5); POTASSIUM 3.4 mmol/L (3.5-5.1); THYROID STIMULATING HORMONE 2.06 uIU/mL (0.36-3.74); URIC ACID 3.1 mg/dL (2.6-7.2)
[2020-01-10] MEDS ORDERED: POTASSIUM CHLORIDE 20 MEQ ERTAB PO SCH (07:45)
[2020-01-10 08:00] VITALS: BP 126/75
[2020-01-10] MEDS: FOLIC ACID 1 MG TABLET PO SCH (08:46)
[2020-01-10] MEDS: THIAMINE HCL 100 MG TABLET PO SCH (08:46)
[2020-01-10] MEDS: MIDODRINE HCL 5 MG TABLET PO SCH ×3 (08:46→20:31)
[2020-01-10] MEDS: FAMOTIDINE/PF 20 MG/2 ML VIAL IV SCH ×2 (08:46→20:30)
[2020-01-10] MEDS: Vitamin B Complex/Vit C/Folic Acid PO SCH (08:46)
[2020-01-10] MEDS: RIFAXIMIN 550 MG TABLET PO SCH ×2 (08:46→20:30)
[2020-01-10] MEDS: LACTULOSE 20 GM/30 ML UDCUP PO SCH ×3 (08:47→20:30)
[2020-01-10] MEDS: FUROSEMIDE 20 MG TABLET PO SCH (09:00)
[2020-01-10] MEDS: SPIRONOLACTONE 25 MG TAB PO SCH (09:00)
[2020-01-10] MEDS ORDERED: ALBUMIN (HUMAN) 25% 100 ML IV SCH (09:00)
[2020-01-10 11:00] VITALS: BP 119/71
[2020-01-10] MEDS: MORPHINE SULFATE 4 MG/1ML SYG IV PRN (14:50)
[2020-01-10 16:00] VITALS: BP 112/60
[2020-01-10 19:53] VITALS: BP 141/68
[2020-01-10] MEDS: DULOXETINE HCL 30 MG CAP PO SCH (20:30)
[2020-01-10] MEDS: CEFTRIAXONE SODIUM 1 GM IVP SCH (22:36)
[2020-01-10 23:20] VITALS: BP 126/76
[2020-01-11 04:09] VITALS: BP 116/70
[2020-01-11 06:06] LABS: BASOPHILS % (AUTO) 0.4 % (0.0-5.0); EOSINOPHILS % (AUTO) 4.1 % (0.0-8.0); HEMATOCRIT 27.4 % (42-54); LYMPHOCYTES % (AUTO) 24.8 % (21.0-51.0); MEAN CORPUSCULAR HEMOGLOBIN 34.2 pg (27.0-33.0); MEAN CORPUSCULAR HGB CONC 35.4 g/dL (32.0-36.0); MEAN CORPUSCULAR VOLUME 96.5 fL (79-99); MONOCYTES % (AUTO) 20.8 % (3.0-13.0); NEUTROPHILS % (AUTO) 48.6 % (40.0-77.0); PLATELET COUNT (AUTO) 45 K/uL (130-400); RED BLOOD CELL COUNT(AUTO) 2.84 MIL/uL (4.50-6.20); RED CELL DISTRIBUTION WIDTH 14.5 % (11.0-15.5); WHITE BLOOD COUNT (AUTO) 4.7 K/uL (4.8-10.8)
[2020-01-11 06:20] LABS: POTASSIUM 3.2 mmol/L (3.5-5.1)
[2020-01-11] MEDS: PANTOPRAZOLE SODIUM 40 MG TABLET.DR PO SCH (06:39)
[2020-01-11 08:00] VITALS: BP 120/70
[2020-01-11] MEDS ORDERED: POTASSIUM CHLORIDE 20 MEQ ERTAB PO SCH (08:15)
[2020-01-11 11:00] VITALS: BP 131/69
[2020-01-11] MEDS: FAMOTIDINE/PF 20 MG/2 ML VIAL IV SCH ×2 (11:30→21:31)
[2020-01-11] MEDS: SPIRONOLACTONE 25 MG TAB PO SCH (11:31)
[2020-01-11] MEDS: FOLIC ACID 1 MG TABLET PO SCH (11:31)
[2020-01-11] MEDS: FUROSEMIDE 20 MG TABLET PO SCH (11:32)
[2020-01-11] MEDS: LACTULOSE 20 GM/30 ML UDCUP PO SCH ×3 (11:32→21:31)
[2020-01-11] MEDS: MIDODRINE HCL 5 MG TABLET PO SCH ×3 (11:32→21:31)
[2020-01-11] MEDS: Vitamin B Complex/Vit C/Folic Acid PO SCH (11:32)
[2020-01-11] MEDS: THIAMINE HCL 100 MG TABLET PO SCH (11:32)
[2020-01-11] MEDS: RIFAXIMIN 550 MG TABLET PO SCH ×2 (11:33→21:31)
[2020-01-11 12:07] LABS: INR 3.06 (0.85-1.15); PROTHROMBIN TIME 31.7 SEC (9.6-11.6)
[2020-01-11 13:36] LABS: ALBUMIN 2.6 g/dL (3.5-5.0); BILIRUBIN,DIRECT 5.2 mg/dL (0.0-0.3); BILIRUBIN,TOTAL 7.6 mg/dL (0.2-1.0); TOTAL PROTEIN, SERUM 6.7 g/dL (6.0-8.3)
[2020-01-11 17:20] VITALS: BP 137/71
[2020-01-11 20:00] VITALS: BP 114/68
[2020-01-11] MEDS: DULOXETINE HCL 30 MG CAP PO SCH (21:31)
[2020-01-11] MEDS: CEFTRIAXONE SODIUM 1 GM IVP SCH (23:00)
[2020-01-12 03:46] LABS: BASOPHILS % (AUTO) 0.5 % (0.0-5.0); EOSINOPHILS % (AUTO) 2.8 % (0.0-8.0); HEMATOCRIT 26.4 % (42-54); LYMPHOCYTES % (AUTO) 29.8 % (21.0-51.0); MEAN CORPUSCULAR HEMOGLOBIN 33.9 pg (27.0-33.0); MEAN CORPUSCULAR HGB CONC 35.2 g/dL (32.0-36.0); MEAN CORPUSCULAR VOLUME 96.4 fL (79-99); MONOCYTES % (AUTO) 23.7 % (3.0-13.0); NEUTROPHILS % (AUTO) 42.2 % (40.0-77.0); PLATELET COUNT (AUTO) 42 K/uL (130-400); RED BLOOD CELL COUNT(AUTO) 2.74 MIL/uL (4.50-6.20); RED CELL DISTRIBUTION WIDTH 14.5 % (11.0-15.5)
[2020-01-12 03:55] LABS: CREATININE 0.9 mg/dL (0.5-1.5); MAGNESIUM 1.3 mg/dL (1.80-2.40); POTASSIUM 3.1 mmol/L (3.5-5.1)
[2020-01-12 03:59] LABS: INR 2.52 (0.85-1.15); PROTHROMBIN TIME 26.3 SEC (9.6-11.6)
[2020-01-12 04:00] VITALS: BP 105/71
[2020-01-12 07:30] VITALS: BP 128/79
[2020-01-12] MEDS: PANTOPRAZOLE SODIUM 40 MG TABLET.DR PO SCH (07:30)
[2020-01-12] MEDS ORDERED: LIDOCAINE HCL-MPF 1% 2ML VIAL IJ PRN (08:00)
[2020-01-12] MEDS ORDERED: POTASSIUM CHLORIDE 20MEQ/100ML 100 ML IV PRN (08:00)
[2020-01-12 08:40] LABS: ALBUMIN 2.4 g/dL (3.5-5.0); BILIRUBIN,DIRECT 4.5 mg/dL (0.0-0.3); BILIRUBIN,TOTAL 6.9 mg/dL (0.2-1.0); TOTAL PROTEIN, SERUM 6.2 g/dL (6.0-8.3)
[2020-01-12] MEDS: FAMOTIDINE/PF 20 MG/2 ML VIAL IV SCH ×2 (09:54→20:29)
[2020-01-12] MEDS: SPIRONOLACTONE 25 MG TAB PO SCH (09:54)
[2020-01-12] MEDS: LACTULOSE 20 GM/30 ML UDCUP PO SCH ×3 (09:55→20:29)
[2020-01-12] MEDS: FOLIC ACID 1 MG TABLET PO SCH (09:55)
[2020-01-12] MEDS: Vitamin B Complex/Vit C/Folic Acid PO SCH (09:56)
[2020-01-12] MEDS: MIDODRINE HCL 5 MG TABLET PO SCH ×3 (09:56→20:30)
[2020-01-12] MEDS: RIFAXIMIN 550 MG TABLET PO SCH ×2 (09:56→20:29)
[2020-01-12] MEDS: THIAMINE HCL 100 MG TABLET PO SCH (09:56)
[2020-01-12] MEDS: FUROSEMIDE 20 MG TABLET PO SCH (09:56)
[2020-01-12] MEDS: MAGNESIUM 2GM PREMIX 50ML 50 ML IV SCH (10:07)
[2020-01-12] MEDS: POTASSIUM CHLORIDE 10% ELIXIR 20 MEQ/15 ML UDCUP PO PRN ×3 (10:10→20:39)
[2020-01-12 11:00] VITALS: BP 137/81
[2020-01-12 16:00] VITALS: BP 121/69
[2020-01-12 20:07] VITALS: BP 115/71
[2020-01-12] MEDS: DULOXETINE HCL 30 MG CAP PO SCH (20:29)
[2020-01-12] MEDS: CEFTRIAXONE SODIUM 1 GM IVP SCH (20:39)
[2020-01-12 23:11] VITALS: BP 126/78
[2020-01-13 03:04] VITALS: BP 124/75
[2020-01-13 05:54] LABS: BASOPHILS % (AUTO) 0.6 % (0.0-5.0); EOSINOPHILS % (AUTO) 3.8 % (0.0-8.0); HEMATOCRIT 27.2 % (42-54); LYMPHOCYTES % (AUTO) 30.3 % (21.0-51.0); MEAN CORPUSCULAR HEMOGLOBIN 33.9 pg (27.0-33.0); MEAN CORPUSCULAR HGB CONC 35.3 g/dL (32.0-36.0); MEAN CORPUSCULAR VOLUME 96.1 fL (79-99); MONOCYTES % (AUTO) 18.4 % (3.0-13.0); NEUTROPHILS % (AUTO) 46.1 % (40.0-77.0); PLATELET COUNT (AUTO) 47 K/uL (130-400); RED BLOOD CELL COUNT(AUTO) 2.83 MIL/uL (4.50-6.20); RED CELL DISTRIBUTION WIDTH 14.4 % (11.0-15.5); WHITE BLOOD COUNT (AUTO) 5.3 K/uL (4.8-10.8)
[2020-01-13 06:09] LABS: INR 2.97 (0.85-1.15); PROTHROMBIN TIME 30.8 SEC (9.6-11.6)
[2020-01-13 06:19] LABS: ALBUMIN 2.2 g/dL (3.5-5.0); MAGNESIUM 1.5 mg/dL (1.80-2.40); POTASSIUM 3.1 mmol/L (3.5-5.1); TOTAL PROTEIN, SERUM 6.5 g/dL (6.0-8.3)
[2020-01-13] MEDS: MAGNESIUM 2GM PREMIX 50ML 50 ML IV SCH ×2 (06:26→10:06)
[2020-01-13] MEDS: PANTOPRAZOLE SODIUM 40 MG TABLET.DR PO SCH (06:27)
[2020-01-13] MEDS: POTASSIUM CHLORIDE 10% ELIXIR 20 MEQ/15 ML UDCUP PO PRN (06:27)
[2020-01-13 07:30] VITALS: BP 115/62
[2020-01-13] MEDS: SPIRONOLACTONE 25 MG TAB PO SCH (10:01)
[2020-01-13] MEDS: FAMOTIDINE/PF 20 MG/2 ML VIAL IV SCH ×2 (10:01→21:25)
[2020-01-13] MEDS: FOLIC ACID 1 MG TABLET PO SCH (10:01)
[2020-01-13] MEDS: MIDODRINE HCL 5 MG TABLET PO SCH ×3 (10:02→21:25)
[2020-01-13] MEDS: FUROSEMIDE 20 MG TABLET PO SCH (10:02)
[2020-01-13] MEDS: Vitamin B Complex/Vit C/Folic Acid PO SCH (10:02)
[2020-01-13] MEDS: LACTULOSE 20 GM/30 ML UDCUP PO SCH ×3 (10:02→21:00)
[2020-01-13] MEDS: THIAMINE HCL 100 MG TABLET PO SCH (10:03)
[2020-01-13] MEDS: RIFAXIMIN 550 MG TABLET PO SCH ×2 (10:03→21:25)
[2020-01-13] MEDS: POTASSIUM CHLORIDE 20 MEQ ERTAB PO PRN (10:04)
[2020-01-13 11:00] VITALS: BP 132/84
[2020-01-13 16:00] VITALS: BP 122/71
[2020-01-13 16:21] LABS: MAGNESIUM 2.1 mg/dL (1.80-2.40); POTASSIUM 3.6 mmol/L (3.5-5.1)
[2020-01-13] MEDS: MAGNESIUM OXIDE 400 MG TABLET PO SCH (17:30)
[2020-01-13 19:25] VITALS: BP 131/80
[2020-01-13] MEDS: DULOXETINE HCL 30 MG CAP PO SCH (21:25)
[2020-01-13] MEDS: MORPHINE SULFATE 4 MG/1ML SYG IV PRN (23:01)
[2020-01-13 23:22] VITALS: BP 128/76
[2020-01-14] MEDS: CEFTRIAXONE SODIUM 1 GM IVP SCH ×2 (00:06→19:54)
[2020-01-14] MEDS: MORPHINE SULFATE 4 MG/1ML SYG IV PRN ×2 (01:58→21:13)
[2020-01-14 03:25] VITALS: BP 120/74
[2020-01-14 03:51] LABS: MAGNESIUM 1.6 mg/dL (1.80-2.40); POTASSIUM 3.4 mmol/L (3.5-5.1)
[2020-01-14 04:08] LABS: INR 3.25 (0.85-1.15); PROTHROMBIN TIME 33.5 SEC (9.6-11.6)
[2020-01-14] MEDS: POTASSIUM CHLORIDE 20 MEQ ERTAB PO PRN ×2 (05:42→12:35)
[2020-01-14] MEDS: MAGNESIUM 2GM PREMIX 50ML 50 ML IV SCH (05:42)
[2020-01-14 07:30] VITALS: BP 125/71
[2020-01-14] MEDS: FAMOTIDINE/PF 20 MG/2 ML VIAL IV SCH ×2 (08:28→19:51)
[2020-01-14] MEDS: RIFAXIMIN 550 MG TABLET PO SCH ×2 (08:28→19:52)
[2020-01-14] MEDS: LACTULOSE 20 GM/30 ML UDCUP PO SCH ×3 (08:28→19:52)
[2020-01-14] MEDS: Vitamin B Complex/Vit C/Folic Acid PO SCH (08:29)
[2020-01-14] MEDS: MIDODRINE HCL 5 MG TABLET PO SCH ×3 (08:29→19:54)
[2020-01-14] MEDS: THIAMINE HCL 100 MG TABLET PO SCH (08:29)
[2020-01-14] MEDS: PANTOPRAZOLE SODIUM 40 MG TABLET.DR PO SCH (08:29)
[2020-01-14] MEDS: SPIRONOLACTONE 25 MG TAB PO SCH (08:29)
[2020-01-14] MEDS: POTASSIUM CHLORIDE 20 MEQ ERTAB PO SCH (08:30)
[2020-01-14] MEDS: FOLIC ACID 1 MG TABLET PO SCH (08:30)
[2020-01-14] MEDS: FUROSEMIDE 20 MG TABLET PO SCH (08:30)
[2020-01-14] MEDS: MAGNESIUM OXIDE 400 MG TABLET PO SCH (08:30)
[2020-01-14 11:00] VITALS: BP 134/82
[2020-01-14] MEDS ORDERED: CYANOCOBALAMIN (VITAMIN B-12) 1,000 MCG TABLET PO SCH (12:00)
[2020-01-14] MEDS ORDERED: PHYTONADIONE 10 MG/1 ML AMP SQ SCH (12:00)
[2020-01-14] MEDS: CYANOCOBALAMIN (VITAMIN B-12) 1,000 MCG TABLET PO SCH (12:35)
[2020-01-14 16:00] VITALS: BP 123/74
[2020-01-14] MEDS: DULOXETINE HCL 30 MG CAP PO SCH (19:51)
[2020-01-14 20:22] VITALS: BP 133/77
[2020-01-14] MEDS: HYDROMORPHONE HCL 2 MG/ML VIAL IVP PRN ×2 (22:05→23:10)
[2020-01-14 23:39] VITALS: BP 113/82
[2020-01-15] MEDS: MORPHINE SULFATE 4 MG/1ML SYG IV PRN ×2 (00:36→04:36)
[2020-01-15] MEDS: HYDROMORPHONE HCL 2 MG/ML VIAL IVP PRN ×7 (00:55→05:53)
[2020-01-15 04:31] VITALS: BP 124/71
[2020-01-15 05:37] LABS: HEMATOCRIT 27.5 % (42-54)
[2020-01-15 05:45] LABS: MAGNESIUM 1.5 mg/dL (1.80-2.40); POTASSIUM 3.2 mmol/L (3.5-5.1)
[2020-01-15 07:02] LABS: INR > 7.00 (0.85-1.15); PROTHROMBIN TIME > 63.0 SEC (9.6-11.6)
--- NOTE | 2020-01-15 07:45 | NUR ---
DR CANTRELL notified Dr Cantrell of INR =7.0 PT=62 new orders given
[2020-01-15 08:00] VITALS: BP 123/67
--- NOTE | 2020-01-15 08:30 | NUR ---
FAMILY spoke with family member explained plan of care voices understanding
[2020-01-15] MEDS ORDERED: PHYTONADIONE 10 MG/1 ML AMP SQ SCH (09:00)
[2020-01-15 09:43] LABS: ALBUMIN 2.1 g/dL (3.5-5.0); BILIRUBIN,DIRECT 4.2 mg/dL (0.0-0.3); BILIRUBIN,TOTAL 6.9 mg/dL (0.2-1.0); TOTAL PROTEIN, SERUM 6.4 g/dL (6.0-8.3)
[2020-01-15] MEDS: FAMOTIDINE/PF 20 MG/2 ML VIAL IV SCH ×2 (11:56→20:28)
[2020-01-15] MEDS: PANTOPRAZOLE SODIUM 40 MG TABLET.DR PO SCH (11:56)
[2020-01-15] MEDS: FOLIC ACID 1 MG TABLET PO SCH (11:57)
[2020-01-15] MEDS: SPIRONOLACTONE 25 MG TAB PO SCH (11:57)
[2020-01-15] MEDS: LACTULOSE 20 GM/30 ML UDCUP PO SCH ×3 (11:58→20:28)
[2020-01-15] MEDS: POTASSIUM CHLORIDE 20 MEQ ERTAB PO SCH (11:58)
[2020-01-15] MEDS: MAGNESIUM OXIDE 400 MG TABLET PO SCH (11:59)
[2020-01-15] MEDS: MIDODRINE HCL 5 MG TABLET PO SCH ×3 (11:59→20:28)
[2020-01-15] MEDS: FUROSEMIDE 20 MG TABLET PO SCH (11:59)
[2020-01-15] MEDS: Vitamin B Complex/Vit C/Folic Acid PO SCH (11:59)
[2020-01-15] MEDS: THIAMINE HCL 100 MG TABLET PO SCH (11:59)
[2020-01-15 12:00] VITALS: BP 124/67
[2020-01-15] MEDS ORDERED: COMPOUND IV MISC 1 EACH IVSOLN MISC PRN (12:00)
[2020-01-15] MEDS: RIFAXIMIN 550 MG TABLET PO SCH ×2 (12:00→20:28)
[2020-01-15] MEDS ORDERED: PHYTONADIONE 10 MG in SODIUM CHLORIDE 0.9% 50 ML SQ SCH (12:00)
[2020-01-15] MEDS: CYANOCOBALAMIN (VITAMIN B-12) 1,000 MCG TABLET PO SCH (12:00)
[2020-01-15] MEDS: MAGNESIUM 2GM PREMIX 50ML 50 ML IV SCH (12:01)
[2020-01-15] MEDS: PHYTONADIONE 10 MG in SODIUM CHLORIDE 0.9% 50 ML IV SCH (13:23)
[2020-01-15 16:00] VITALS: BP 125/68
--- NOTE | 2020-01-15 16:00 | NUR ---
DR GONZALEZ office staff called information collected concerning pt ,Dr Gonzalez aware of pt and information No orders given will sign off on pt
[2020-01-15] MEDS: DiphenhydrAMINE HCL 50 MG/ML VIAL IV SCH (18:00)
[2020-01-15] MEDS: POTASSIUM CHLORIDE 10% ELIXIR 20 MEQ/15 ML UDCUP PO PRN (18:12)
[2020-01-15 19:46] VITALS: BP 141/79
[2020-01-15] MEDS: DULOXETINE HCL 30 MG CAP PO SCH (20:28)
--- NOTE | 2020-01-15 21:58 | NUR ---
PATIENT AWAKE AND ALERT. NO COMPLAINTS OF PAIN. RESP EVEN AND UNLABORED. NO SOB NOTED, ON ROOM AIR. FIRST UNIT OF CRYO COMPLETED. NO ADVERSE REACTIONS NOTED. VITALS STABLE. AFEBRILE. WILL CONTINUE TO BE OBSERVED. CALL LIGHT WITHIN REACH. Addendum: 01/16/20 at 0120 by HILTON WALLS RN RN Amended: Links added.
[2020-01-15 23:36] VITALS: BP 135/73
[2020-01-15] MEDS: CEFTRIAXONE SODIUM 1 GM IVP SCH (23:45)
[2020-01-16 04:00] VITALS: BP 116/63
[2020-01-16 05:52] LABS: HEMATOCRIT 28.1 % (42-54)
[2020-01-16 06:23] LABS: ALBUMIN 2.1 g/dL (3.5-5.0); BILIRUBIN,TOTAL 7.3 mg/dL (0.2-1.0); CREATININE 1.1 mg/dL (0.5-1.5); INR 2.52 (0.85-1.15); POTASSIUM 3.8 mmol/L (3.5-5.1); PROTHROMBIN TIME 26.3 SEC (9.6-11.6); TOTAL PROTEIN, SERUM 6.6 g/dL (6.0-8.3)
[2020-01-16] MEDS: PANTOPRAZOLE SODIUM 40 MG TABLET.DR PO SCH (06:40)
[2020-01-16 08:00] VITALS: BP 120/66
[2020-01-16] MEDS: SPIRONOLACTONE 25 MG TAB PO SCH (09:51)
[2020-01-16] MEDS: FAMOTIDINE/PF 20 MG/2 ML VIAL IV SCH ×2 (09:51→21:09)
[2020-01-16] MEDS: FOLIC ACID 1 MG TABLET PO SCH (09:52)
[2020-01-16] MEDS: POTASSIUM CHLORIDE 20 MEQ ERTAB PO SCH (09:52)
[2020-01-16] MEDS: LACTULOSE 20 GM/30 ML UDCUP PO SCH ×3 (09:52→21:08)
[2020-01-16] MEDS: MAGNESIUM OXIDE 400 MG TABLET PO SCH ×2 (09:53→21:08)
[2020-01-16] MEDS: FUROSEMIDE 20 MG TABLET PO SCH (09:53)
[2020-01-16] MEDS: Vitamin B Complex/Vit C/Folic Acid PO SCH (09:53)
[2020-01-16] MEDS: MIDODRINE HCL 5 MG TABLET PO SCH ×3 (09:54→21:08)
[2020-01-16] MEDS: THIAMINE HCL 100 MG TABLET PO SCH (09:54)
[2020-01-16] MEDS: CYANOCOBALAMIN (VITAMIN B-12) 1,000 MCG TABLET PO SCH (09:54)
[2020-01-16] MEDS: RIFAXIMIN 550 MG TABLET PO SCH ×2 (09:54→21:08)
[2020-01-16] MEDS: DiphenhydrAMINE HCL 50 MG/ML VIAL IV SCH (09:55)
[2020-01-16 12:00] VITALS: BP 134/81
[2020-01-16] MEDS: PHYTONADIONE 10 MG in SODIUM CHLORIDE 0.9% 50 ML IV SCH (12:57)
[2020-01-16] MEDS: MAGNESIUM 2GM PREMIX 50ML 50 ML IV SCH (13:45)
[2020-01-16 16:00] VITALS: BP 121/57
[2020-01-16 19:00] VITALS: BP 133/73
[2020-01-16] MEDS: DULOXETINE HCL 30 MG CAP PO SCH (21:08)
[2020-01-16] MEDS: CEFTRIAXONE SODIUM 1 GM IVP SCH (21:18)
[2020-01-16 23:59] VITALS: BP 127/67
[2020-01-17 04:00] VITALS: BP 127/79
[2020-01-17] MEDS: PANTOPRAZOLE SODIUM 40 MG TABLET.DR PO SCH (05:52)
[2020-01-17 05:58] LABS: INR 2.71 (0.85-1.15); PROTHROMBIN TIME 28.2 SEC (9.6-11.6)
[2020-01-17 06:04] LABS: MAGNESIUM 1.6 mg/dL (1.80-2.40); POTASSIUM 3.3 mmol/L (3.5-5.1)
[2020-01-17] MEDS: MAGNESIUM 2GM PREMIX 50ML 50 ML IV SCH (06:19)
[2020-01-17] MEDS: POTASSIUM CHLORIDE 20 MEQ ERTAB PO PRN ×3 (06:19→17:04)
[2020-01-17 08:00] VITALS: BP 136/82
[2020-01-17] MEDS: RIFAXIMIN 550 MG TABLET PO SCH ×2 (08:56→21:02)
[2020-01-17] MEDS: FOLIC ACID 1 MG TABLET PO SCH (08:56)
[2020-01-17] MEDS: FAMOTIDINE/PF 20 MG/2 ML VIAL IV SCH ×2 (08:56→21:03)
[2020-01-17] MEDS: MAGNESIUM OXIDE 400 MG TABLET PO SCH ×2 (08:56→21:02)
[2020-01-17] MEDS: CYANOCOBALAMIN (VITAMIN B-12) 1,000 MCG TABLET PO SCH (08:56)
[2020-01-17] MEDS: Vitamin B Complex/Vit C/Folic Acid PO SCH (08:56)
[2020-01-17] MEDS: LACTULOSE 20 GM/30 ML UDCUP PO SCH ×3 (08:56→21:01)
[2020-01-17] MEDS: THIAMINE HCL 100 MG TABLET PO SCH (08:56)
[2020-01-17] MEDS: MIDODRINE HCL 5 MG TABLET PO SCH ×3 (08:57→21:03)
[2020-01-17] MEDS: SPIRONOLACTONE 25 MG TAB PO SCH (08:57)
[2020-01-17] MEDS: FUROSEMIDE 20 MG TABLET PO SCH (08:57)
[2020-01-17] MEDS: POTASSIUM CHLORIDE 20 MEQ ERTAB PO SCH (08:58)
[2020-01-17] MEDS ORDERED: PHYTONADIONE 10 MG in SODIUM CHLORIDE 0.9% 50 ML IV SCH (11:15)
[2020-01-17 11:47] VITALS: BP 127/75
[2020-01-17] MEDS: DiphenhydrAMINE HCL 50 MG/ML VIAL IV SCH (12:29)
[2020-01-17 16:00] VITALS: BP 128/79
--- NOTE | 2020-01-17 17:00 | NUR ---
NOTE PATIENT REMAINS STABLE THROUGHOUT THE DAY. NO DISTRESS OR SOB. NO OTHER PROBLEM VOICED. JAUNDICE. I EXPLAINED TO HIM WHAT HE NEEDS TO DO TO GET EVALUATED FOR LIVER TRANSPLANT. HE DOES NOT HAVE A EDGE GLUE MACHINE TENDER OUTPATIENT AND HE HAS BEEN GIVEN APPOINTMENTS IN OTHER OCASSIONS WHEN HE LEAVES BUT DOES NOT FOLLOW UP. HE UNDERSTANDS WHAT HE NEEDS TO DO. DR MANLEY ORDERED TO HAVE LABS IN AM TO FOLLOW UP ON INR LEVELS. HE HAS RECEIVED ANOTHER DOSE OF VITAMIN K IV. HE IS ALSO WAITING ON INPUT FROM DR CANTRELL.
[2020-01-17 19:00] VITALS: BP 131/71
[2020-01-17] MEDS: DULOXETINE HCL 30 MG CAP PO SCH (21:02)
[2020-01-17] MEDS: CEFTRIAXONE SODIUM 1 GM IVP SCH (21:21)
[2020-01-17] MEDS: MORPHINE SULFATE 4 MG/1ML SYG IV PRN (21:21)
[2020-01-18] VITALS (7 sets, daily range): BP systolic 125–153; BP diastolic 63–88
[2020-01-18 05:01] LABS: BASOPHILS % (AUTO) 0.7 % (0.0-5.0); EOSINOPHILS % (AUTO) 4.2 % (0.0-8.0); HEMATOCRIT 28.4 % (42-54); LYMPHOCYTES % (AUTO) 22.1 % (21.0-51.0); MEAN CORPUSCULAR HEMOGLOBIN 33.1 pg (27.0-33.0); MEAN CORPUSCULAR HGB CONC 34.5 g/dL (32.0-36.0); MEAN CORPUSCULAR VOLUME 95.9 fL (79-99); MONOCYTES % (AUTO) 7.5 % (3.0-13.0); NEUTROPHILS % (AUTO) 65.2 % (40.0-77.0); PLATELET COUNT (AUTO) 64 K/uL (130-400); RED BLOOD CELL COUNT(AUTO) 2.96 MIL/uL (4.50-6.20); RED CELL DISTRIBUTION WIDTH 14.7 % (11.0-15.5); WHITE BLOOD COUNT (AUTO) 9.5 K/uL (4.8-10.8)
[2020-01-18 05:11] LABS: CREATININE 0.9 mg/dL (0.5-1.5); POTASSIUM 3.7 mmol/L (3.5-5.1)
[2020-01-18 05:27] LABS: INR 2.89 (0.85-1.15)
[2020-01-18] MEDS: PANTOPRAZOLE SODIUM 40 MG TABLET.DR PO SCH (07:55)
[2020-01-18] MEDS: RIFAXIMIN 550 MG TABLET PO SCH ×2 (07:55→22:53)
[2020-01-18] MEDS: CYANOCOBALAMIN (VITAMIN B-12) 1,000 MCG TABLET PO SCH (07:55)
[2020-01-18] MEDS: THIAMINE HCL 100 MG TABLET PO SCH (07:55)
[2020-01-18] MEDS: SPIRONOLACTONE 25 MG TAB PO SCH (07:56)
[2020-01-18] MEDS: FOLIC ACID 1 MG TABLET PO SCH (07:56)
[2020-01-18] MEDS: MAGNESIUM OXIDE 400 MG TABLET PO SCH ×2 (07:56→22:53)
[2020-01-18] MEDS: FUROSEMIDE 20 MG TABLET PO SCH (07:56)
[2020-01-18] MEDS: Vitamin B Complex/Vit C/Folic Acid PO SCH (07:56)
[2020-01-18] MEDS: POTASSIUM CHLORIDE 20 MEQ ERTAB PO SCH (07:56)
--- NOTE | 2020-01-18 08:00 | NUR ---
PT AWAKE AND ABLE TO FOCUS WITH HIS CARE, DENIES ANY PAIN .STATED THAT HE FEELS BETTER , CALL LIGHT IN REACH.
[2020-01-18] MEDS: LACTULOSE 20 GM/30 ML UDCUP PO SCH ×3 (08:01→22:53)
[2020-01-18] MEDS: FAMOTIDINE/PF 20 MG/2 ML VIAL IV SCH ×2 (09:00→22:53)
--- NOTE | 2020-01-18 09:40 | NUR ---
Referral: Provide information on Hospice SW met with pt. who is familiar to this worker from prior admission; pt. is awake, alert, and oriented. Pt. reports that he is feeling better and is ready to return home. Pt. reports that he is still residing with his girlfriend Prudence and he remains in contact with his daughter Anh who resides in [place]. Pt. denies returning to use of etho, instead, stating that he last drank etoh prior to his admission to [facility] in [facility]. Pt. denies any thoughts of harm to self or others; denies anxiety, depressed mood. SW spoke with pt. about hospice and provided education on hospice philosophy. Pt. reported that physicians had spoken with him previously about hospice and at this time, he does not want to go into hospice. Pt. states that he may change his mind at a later time, but at this time he does not want to be referred to hospice. SW telephoned pt's girlfriend Prudence and informed her of such; Prudence acknowledged that it is his decision and she will respect it. Prudence stated that when pt. has discharge orders, pt. will contact her and she will contact his sister to provide transportation. Pt. and Prudence voiced no other SS needs/concerns. SW provided pt. with list of hospice agencies in the event that he may want to contact them directly at a later date. Plan: Pt. to be discharged home when medically cleared. Addendum: 01/18/20 at 1158 by CONCEPCIÓN WALLS Amended: Links added.
[2020-01-18] MEDS: MIDODRINE HCL 5 MG TABLET PO SCH ×3 (09:48→22:53)
[2020-01-18] MEDS: DiphenhydrAMINE HCL 50 MG/ML VIAL IV SCH (13:45)
[2020-01-18] MEDS: DULOXETINE HCL 30 MG CAP PO SCH (22:53)
[2020-01-18] MEDS: MORPHINE SULFATE 4 MG/1ML SYG IV PRN (23:02)
[2020-01-19] MEDS: MAGNESIUM 2GM PREMIX 50ML 50 ML IV SCH (01:56)
[2020-01-19 03:25] VITALS: BP 138/82
[2020-01-19 05:40] LABS: BASOPHILS % (AUTO) 0.5 % (0.0-5.0); EOSINOPHILS % (AUTO) 5.3 % (0.0-8.0); HEMATOCRIT 28.4 % (42-54); LYMPHOCYTES % (AUTO) 21.2 % (21.0-51.0); MEAN CORPUSCULAR HEMOGLOBIN 32.8 pg (27.0-33.0); MEAN CORPUSCULAR HGB CONC 34.5 g/dL (32.0-36.0); MONOCYTES % (AUTO) 7.4 % (3.0-13.0); NEUTROPHILS % (AUTO) 65.2 % (40.0-77.0); PLATELET COUNT (AUTO) 66 K/uL (130-400); RED BLOOD CELL COUNT(AUTO) 2.99 MIL/uL (4.50-6.20); RED CELL DISTRIBUTION WIDTH 14.7 % (11.0-15.5); WHITE BLOOD COUNT (AUTO) 9.6 K/uL (4.8-10.8)
[2020-01-19 05:58] LABS: CREATININE 0.9 mg/dL (0.5-1.5); POTASSIUM 3.5 mmol/L (3.5-5.1)
[2020-01-19 06:01] LABS: INR 2.89 (0.85-1.15)
[2020-01-19 06:17] LABS: MAGNESIUM 1.8 mg/dL (1.80-2.40)
[2020-01-19] MEDS: PANTOPRAZOLE SODIUM 40 MG TABLET.DR PO SCH (06:21)
[2020-01-19 08:00] VITALS: BP 137/74
[2020-01-19] MEDS: Vitamin B Complex/Vit C/Folic Acid PO SCH (08:24)
[2020-01-19] MEDS: LACTULOSE 20 GM/30 ML UDCUP PO SCH ×2 (08:24→14:41)
[2020-01-19] MEDS: MIDODRINE HCL 5 MG TABLET PO SCH ×2 (08:25→14:40)
[2020-01-19] MEDS: RIFAXIMIN 550 MG TABLET PO SCH (08:25)
[2020-01-19] MEDS: CYANOCOBALAMIN (VITAMIN B-12) 1,000 MCG TABLET PO SCH (08:25)
[2020-01-19] MEDS: MAGNESIUM OXIDE 400 MG TABLET PO SCH (08:25)
[2020-01-19] MEDS: FUROSEMIDE 20 MG TABLET PO SCH (08:25)
[2020-01-19] MEDS: SPIRONOLACTONE 25 MG TAB PO SCH (08:25)
[2020-01-19] MEDS: POTASSIUM CHLORIDE 20 MEQ ERTAB PO SCH (08:26)
[2020-01-19] MEDS: FOLIC ACID 1 MG TABLET PO SCH (08:26)
[2020-01-19] MEDS: THIAMINE HCL 100 MG TABLET PO SCH (08:26)
[2020-01-19] MEDS: FAMOTIDINE/PF 20 MG/2 ML VIAL IV SCH (09:00)
[2020-01-19 12:00] VITALS: BP 129/81
[2020-01-19] MEDS: DiphenhydrAMINE HCL 50 MG/ML VIAL IV SCH (13:45)
--- NOTE | 2020-01-19 15:45 | NUR ---
DISCHARGE SUMMARY WAS REVIEW WITH PT REGARDING HIS FOLLOWUP APPT. WITH HIS DR. PER PT INFORMATION PT STATED THAT HE DOSE NOT HAVE A SOLID INSURANCE BUT WILL START TO SEE IF HE COULD GET ONE. REVIEW MEDICATIONS NO NEW ONE SL TO HIS RT WRIST WAS DC ,WITH NO HEMATOMA NOTED A SMALL PRESSURE DRSG APPLICATION ON . PT WAS ABLE TO FOCUS WITH HIS DISCHARGE SUMMARY, REGARDING HIS CARE..
== END 2020-01-19 16:00 | disposition home or self-care (01) | DRG 432 ==
LOC: EDH 15:35 → OBSVTOIN 15:36 → EDHIP 15:36 → 3BH 23:43
PROVIDERS: ADMIT Hospitalist; ATTEND Hospitalist
PROC: 30233K1 Transfusion of Nonautologous Frozen Plasma into Peripheral Vein, Percutaneous Approach (ICD-10-PCS; principal; 2020-01-08)
PROC: 0W9G3ZZ Drainage of Peritoneal Cavity, Percutaneous Approach (ICD-10-PCS; 2020-01-08)
DX: K70.31 Alcoholic cirrhosis of liver with ascites (principal); K65.2 Spontaneous bacterial peritonitis; E43 Unspecified severe protein-calorie malnutrition; E87.1 Hypo-osmolality and hyponatremia; N17.9 Acute kidney failure, unspecified; A09 Infectious gastroenteritis and colitis, unspecified; D68.8 Other specified coagulation defects; K76.6 Portal hypertension; D69.6 Thrombocytopenia, unspecified; E87.70 Fluid overload, unspecified; D64.9 Anemia, unspecified; E83.42 Hypomagnesemia; E87.6 Hypokalemia; F10.10 Alcohol abuse, uncomplicated; I12.9 Hypertensive chronic kidney disease with stage 1 through stage 4 chronic kidney disease, or unspecified chronic kidney disease; I27.20 Pulmonary hypertension, unspecified; N18.9 Chronic kidney disease, unspecified; R62.7 Adult failure to thrive; K21.9 Gastro-esophageal reflux disease without esophagitis; F32.9 Major depressive disorder, single episode, unspecified; R53.81 Other malaise; E87.8 Other disorders of electrolyte and fluid balance, not elsewhere classified; Z68.29 Body mass index [BMI] 29.0-29.9, adult; Z91.19 Patient's noncompliance with other medical treatment and regimen; Z86.2 Personal history of diseases of the blood and blood-forming organs and certain disorders involving the immune mechanism
CPT/HCPCS: 36415; 36430; 49083; 80048; 80053; 80076; 82140; 82550; 82570; 83690; 83735; 83935; 84132; 84145; 84300; 84443; 84484; 84550; 85014; 85018; 85025; 85027; 85384; 85610; 85730; 86850; 86900; 86901; 86927; 87071; 87205; 89051; 93005; 97039; G0378; J0696; J1170; J1200; J2270; J2405; J3430; J3475; J3490; P9012; P9017; P9046

== ENCOUNTER 2020-02-16 22:24 | Inpatient (IN) | payer MEDICAID ==
[~2020-02-16] VITALS: Ht 182.9 cm; Wt 82.5 kg
[2020-02-16] MEDS ORDERED: MORPHINE SULFATE 2 MG/ML 1ML SYG ONE (23:17)
[2020-02-16 23:24] LABS: BASOPHILS % (AUTO) 0.5 % (0.0-5.0); EOSINOPHILS % (AUTO) 2.2 % (0.0-8.0); HEMATOCRIT 31.2 % (42-54); LYMPHOCYTES % (AUTO) 12.6 % (21.0-51.0); MEAN CORPUSCULAR HEMOGLOBIN 32.9 pg (27.0-33.0); MEAN CORPUSCULAR VOLUME 96.9 fL (79-99); NEUTROPHILS % (AUTO) 77.2 % (40.0-77.0); PLATELET COUNT (AUTO) 92 K/uL (130-400); RED BLOOD CELL COUNT(AUTO) 3.22 MIL/uL (4.50-6.20); RED CELL DISTRIBUTION WIDTH 20.1 % (11.0-15.5); WHITE BLOOD COUNT (AUTO) 10.2 K/uL (4.8-10.8)
[2020-02-16 23:33] LABS: POTASSIUM 4.3 mmol/L (3.5-5.1)
[2020-02-16 23:37] LABS: ALBUMIN 1.5 g/dL (3.5-5.0); BILIRUBIN,TOTAL 8.2 mg/dL (0.2-1.0); INR 2.17 (0.85-1.15); PARTIAL THROMBOPLASTIN TIME 50.3 SEC (26.3-35.5); PROTHROMBIN TIME 22.7 SEC (9.6-11.6); TOTAL PROTEIN, SERUM 7.9 g/dL (6.0-8.3)
[2020-02-16 23:44] LABS: B-TYPE NATRIURETIC PEPTIDE 18 pg/mL (0-100)
[2020-02-17] MEDS ORDERED: CEFTRIAXONE SODIUM 1 GM ONE (00:34)
[2020-02-17] MEDS ORDERED: MORPHINE SULFATE 2 MG/ML 1ML SYG IV PRN (01:00)
[2020-02-17] MEDS ORDERED: MORPHINE SULFATE 2 MG/ML 1ML SYG ONE (05:25)
[2020-02-17] MEDS ORDERED: PHYTONADIONE 10 MG/1 ML AMP IM SCH (07:30)
[2020-02-17] MEDS: LACTULOSE 20 GM/30 ML UDCUP PO SCH ×2 (07:30→16:51)
[2020-02-17] MEDS ORDERED: FOLIC ACID 1 MG TABLET PO SCH (08:00)
[2020-02-17] MEDS ORDERED: LACTULOSE 20 GM/30 ML UDCUP ONE (08:23)
[2020-02-17] MEDS ORDERED: THIAMINE HCL 100 MG TABLET ONE (08:23)
[2020-02-17] MEDS ORDERED: FOLIC ACID 1 MG TABLET ONE (08:23)
[2020-02-17] MEDS ORDERED: FAMOTIDINE/PF 20 MG/2 ML VIAL IV ONE (08:25)
[2020-02-17 08:40] VITALS: BP 132/92
[2020-02-17] MEDS ORDERED: FAMOTIDINE/PF 20 MG/2 ML VIAL IV SCH (09:00)
[2020-02-17] MEDS ORDERED: THIAMINE HCL 100 MG TABLET PO SCH (09:00)
[2020-02-17 11:57] VITALS: BP 137/85
[2020-02-17] MEDS ORDERED: ALBUMIN (HUMAN) 25% 50 ML IV SCH (15:15)
[2020-02-17] MEDS: PHARMACY COMMUNICATION MISC SCH ×3 (15:30→23:30)
[2020-02-17 16:00] VITALS: BP 132/87
[2020-02-17] MEDS ORDERED: FUROSEMIDE 10 MG/ML 10ML VIAL IVP SCH (17:00)
[2020-02-17] MEDS ORDERED: LORAZEPAM 1 MG TABLET PO ONE (18:00)
[2020-02-17] MEDS: FUROSEMIDE 10 MG/ML 4ML VIAL IVP SCH ×2 (18:09→20:40)
[2020-02-17 20:00] VITALS: BP 149/90
[2020-02-17] MEDS: RIFAXIMIN 550 MG TABLET PO SCH (20:41)
[2020-02-17 23:40] VITALS: BP 143/82
[2020-02-18] VITALS (22 sets, daily range): BP systolic 95–147; BP diastolic 37–103
[2020-02-18] MEDS: PHARMACY COMMUNICATION MISC SCH ×7 (03:29→21:04)
[2020-02-18 05:20] LABS: BASOPHILS % (AUTO) 0.5 % (0.0-5.0); EOSINOPHILS % (AUTO) 1.4 % (0.0-8.0); HEMATOCRIT 31.5 % (42-54); LYMPHOCYTES % (AUTO) 14.7 % (21.0-51.0); MEAN CORPUSCULAR HEMOGLOBIN 33.6 pg (27.0-33.0); MEAN CORPUSCULAR HGB CONC 34.3 g/dL (32.0-36.0); MEAN CORPUSCULAR VOLUME 98.1 fL (79-99); MONOCYTES % (AUTO) 9.7 % (3.0-13.0); NEUTROPHILS % (AUTO) 72.6 % (40.0-77.0); PLATELET COUNT (AUTO) 107 K/uL (130-400); RED BLOOD CELL COUNT(AUTO) 3.21 MIL/uL (4.50-6.20); RED CELL DISTRIBUTION WIDTH 20.5 % (11.0-15.5); WHITE BLOOD COUNT (AUTO) 13.2 K/uL (4.8-10.8)
[2020-02-18 05:31] LABS: INR 1.96 (0.85-1.15); PROTHROMBIN TIME 20.6 SEC (9.6-11.6)
[2020-02-18 05:33] LABS: ALBUMIN 1.7 g/dL (3.5-5.0); BILIRUBIN,TOTAL 12.6 mg/dL (0.2-1.0); CREATININE 0.9 mg/dL (0.5-1.5); POTASSIUM 3.6 mmol/L (3.5-5.1)
[2020-02-18 05:37] LABS: B-TYPE NATRIURETIC PEPTIDE 34 pg/mL (0-100)
[2020-02-18 05:54] LABS: TOTAL PROTEIN, SERUM 8.6 g/dL (6.0-8.3)
[2020-02-18] MEDS: FUROSEMIDE 10 MG/ML 4ML VIAL IVP SCH ×2 (07:59→21:04)
[2020-02-18] MEDS: RIFAXIMIN 550 MG TABLET PO SCH ×2 (09:00→21:03)
[2020-02-18] MEDS: THIAMINE HCL 100 MG TABLET PO SCH (09:00)
[2020-02-18] MEDS ORDERED: LEVOFLOXACIN 500 MG/D5W 100 ML 100 ML IV SCH (13:00)
[2020-02-18] MEDS ORDERED: PROPOFOL 10 MG/ML 20ML VIAL IV ONE (13:34)
[2020-02-18] MEDS: SPIRONOLACTONE 25 MG TAB PO SCH (21:03)
[2020-02-18] MEDS: PANTOPRAZOLE SODIUM 40 MG TABLET.DR PO SCH (21:03)
[2020-02-18] MEDS: LACTULOSE 20 GM/30 ML UDCUP PO SCH (21:03)
[2020-02-19 03:17] VITALS: BP 131/75
[2020-02-19] MEDS: PHARMACY COMMUNICATION MISC SCH ×2 (04:59→11:30)
[2020-02-19 05:05] LABS: BASOPHILS % (AUTO) 0.5 % (0.0-5.0); EOSINOPHILS % (AUTO) 1.7 % (0.0-8.0); HEMATOCRIT 27.5 % (42-54); LYMPHOCYTES % (AUTO) 15.7 % (21.0-51.0); MEAN CORPUSCULAR HEMOGLOBIN 33.2 pg (27.0-33.0); MEAN CORPUSCULAR HGB CONC 33.8 g/dL (32.0-36.0); MEAN CORPUSCULAR VOLUME 98.2 fL (79-99); MONOCYTES % (AUTO) 11.8 % (3.0-13.0); NEUTROPHILS % (AUTO) 69.6 % (40.0-77.0); PLATELET COUNT (AUTO) 91 K/uL (130-400); RED CELL DISTRIBUTION WIDTH 20.2 % (11.0-15.5); WHITE BLOOD COUNT (AUTO) 10.3 K/uL (4.8-10.8)
[2020-02-19 05:20] LABS: CREATININE 0.7 mg/dL (0.5-1.5); MAGNESIUM 1.6 mg/dL (1.80-2.40); PHOSPHORUS 4.2 mg/dL (2.5-4.9); POTASSIUM 3.3 mmol/L (3.5-5.1); URIC ACID 3.7 mg/dL (2.6-7.2)
[2020-02-19 09:04] VITALS: BP 132/72
[2020-02-19] MEDS: FUROSEMIDE 10 MG/ML 4ML VIAL IVP SCH (09:26)
[2020-02-19] MEDS: SPIRONOLACTONE 25 MG TAB PO SCH (09:27)
[2020-02-19] MEDS: RIFAXIMIN 550 MG TABLET PO SCH (09:27)
[2020-02-19] MEDS: LACTULOSE 20 GM/30 ML UDCUP PO SCH (09:27)
[2020-02-19] MEDS: THIAMINE HCL 100 MG TABLET PO SCH (09:27)
[2020-02-19] MEDS ORDERED: POTASSIUM CHLORIDE 20MEQ/100ML 100 ML IV PRN (09:30)
[2020-02-19] MEDS ORDERED: LIDOCAINE HCL-MPF 1% 2ML VIAL IV PRN (09:30)
[2020-02-19] MEDS ORDERED: POTASSIUM CHLORIDE 10% ELIXIR 20 MEQ/15 ML UDCUP PO PRN (09:30)
[2020-02-19] MEDS ORDERED: POTASSIUM CHLORIDE 20 MEQ ERTAB PO PRN (09:30)
[2020-02-19] MEDS: PANTOPRAZOLE SODIUM 40 MG TABLET.DR PO SCH (09:32)
[2020-02-19] MEDS: POTASSIUM CHLORIDE 20 MEQ ERTAB PO PRN ×2 (09:32→17:48)
[2020-02-19 15:06] VITALS: BP 130/82
[2020-02-19 16:00] VITALS: BP 120/71
[2020-02-19] MEDS ORDERED: CEPH-578 PO (16:51)
[2020-02-19] MEDS ORDERED: PANT40TA PO (17:04)
== END 2020-02-19 18:30 | disposition home or self-care (01) | DRG 280 ==
LOC: EDH 22:24 → EDHIP 22:25 → 4DH 02-17 08:10
PROVIDERS: ADMIT Internal Medicine; ATTEND Internal Medicine
PROC: 0DJ08ZZ Inspection of Upper Intestinal Tract, Via Natural or Artificial Opening Endoscopic (ICD-10-PCS; principal; 2020-02-18)
DX: K70.31 Alcoholic cirrhosis of liver with ascites (principal); K72.90 Hepatic failure, unspecified without coma; K22.6 Gastro-esophageal laceration-hemorrhage syndrome; E87.1 Hypo-osmolality and hyponatremia; K29.00 Acute gastritis without bleeding; K21.00 Gastro-esophageal reflux disease with esophagitis, without bleeding; E43 Unspecified severe protein-calorie malnutrition; D68.9 Coagulation defect, unspecified; E87.70 Fluid overload, unspecified; I10 Essential (primary) hypertension; F10.20 Alcohol dependence, uncomplicated; D73.1 Hypersplenism; K76.6 Portal hypertension; D69.6 Thrombocytopenia, unspecified; E88.09 Other disorders of plasma-protein metabolism, not elsewhere classified; K31.89 Other diseases of stomach and duodenum; D50.9 Iron deficiency anemia, unspecified; D63.8 Anemia in other chronic diseases classified elsewhere; K55.20 Angiodysplasia of colon without hemorrhage; K63.5 Polyp of colon; B95.4 Other streptococcus as the cause of diseases classified elsewhere; R78.81 Bacteremia; Z20.828 Contact with and (suspected) exposure to other viral communicable diseases; Z68.24 Body mass index [BMI] 24.0-24.9, adult; Z87.891 Personal history of nicotine dependence; Z80.0 Family history of malignant neoplasm of digestive organs
CPT/HCPCS: 36415; 43235; 76705; 76770; 80048; 80053; 82140; 82550; 82948; 83036; 83605; 83690; 83735; 83880; 84100; 84484; 84550; 85025; 85610; 85730; 86677; 86850; 86900; 86901; 87040; 87077; 87186; 87426; A4606; G0378; J0696; J1940; J1956; J2704; J3490; J7030; P9047; U0003

== ENCOUNTER → 2020-03-04 | Outpatient (CLI) | payer MEDICAID ==
[~2020-03-04] MED LIST changes: +ALBUMIN (HUMAN) 25% 200 ML IV SCH; +CEPH-578 PO
[2020-03-04 08:53] LABS: HEMATOCRIT 32.6 % (42-54); MEAN CORPUSCULAR HEMOGLOBIN 36.1 pg (27.0-33.0); MEAN CORPUSCULAR HGB CONC 34.4 g/dL (32.0-36.0); MEAN CORPUSCULAR VOLUME 105.2 fL (79-99); PLATELET COUNT (AUTO) 44 K/uL (130-400); RED CELL DISTRIBUTION WIDTH 19.9 % (11.0-15.5); WHITE BLOOD COUNT (AUTO) 8.3 K/uL (4.8-10.8)
[2020-03-04 09:02] LABS: INR 2.11 (0.85-1.15); PROTHROMBIN TIME 21.5 SEC (9.6-11.6)
--- NOTE | 2020-03-04 09:05 | NUR ---
U/S GUIDED PARACENTESIS PROCEDURE PERFORMED BY DR. JEFFERSON. PUNCTURE SITE RIGHT UPPER QUADRANT AND PATIENT TOLERATED PROCEDURE WELL. TOTAL REMOVED 7.5 LITERS OF YELLOW CLOUDY ASCITES FLUID. END OF PROCEDURE AT 0955. CATHETER REMOVED AND DRESSING APPLIED. NO BLEEDING NOTED. ALBUMIN 25% 50 GRAMS GIVEN IV PER ALBUMIN PROTOCOL. RIGHT FOREARM PIV DC'D, BANDAID APPLIED, DRESSING DRY AND INTACT. DISCHARGE INSTRUCTIONS GIVEN TO PATIENT. PATIENT VERBALIZED UNDERSTANDING. PT DISCHARGED AMBULATORY @ 1015. PT STABLE, AAO X 3 WITH NO C/O PAIN.
[2020-03-04 09:24] LABS: BAND NEUTROPHILS % (MANUAL) 1 % (0-2); EOSINOPHILS % (MANUAL) 4 % (1-6); LYMPHOCYTES % (MANUAL) 13 % (22-44); MAN.DIFF COMMENT-IMPRESSION MANUAL DIFFERENTIAL; MONOCYTES % (MANUAL) 5 % (2-9); SEGMENTED NEUTROPHILS % 77 % (40-70)
[2020-03-04 09:26] LABS: PLATELET MORPHOLOGY COMMENT MARKED DECREASE
[2020-03-04 10:25] LABS: ALBUMIN 2.2 g/dL (3.5-5.0); BILIRUBIN,TOTAL 8.5 mg/dL (0.2-1.0); CREATININE 0.8 mg/dL (0.5-1.5); POTASSIUM 5.6 mmol/L (3.5-5.1); TOTAL PROTEIN, SERUM 7.6 g/dL (6.0-8.3)
[2020-03-04 11:01] LABS: ALBUMIN,BODY FLUID < 0.6 g/dL
[2020-03-04 13:07] LABS: APPEARANCE BODY FLUID SLIGHTLY CLOUDY (CLEAR); COLOR,BODY FLUID YELLOW (LT YELLOW); SPECIMENTYPE,BODY FLUID ASCITES; TOTAL VOLUME,BODY FLUID 7500 mL
[2020-03-04 13:08] LABS: BODY FLUID RBC 47 /cu. mm.; BODY FLUID WBC 58 /cu. mm.
[2020-03-04 13:11] LABS: BF LYMPHOCYTE 30 %; BF MONOCYTE 57 %
== END ==
LOC: RAH 07:49
PROVIDERS: ATTEND Internal Medicine Gastroenterology
DX: K70.31 Alcoholic cirrhosis of liver with ascites (principal); D64.9 Anemia, unspecified; K21.00 Gastro-esophageal reflux disease with esophagitis, without bleeding; Z79.899 Other long term (current) drug therapy
CPT/HCPCS: 36415; 49083; 80053; 82042; 84157; 85025; 85610; 87071; 87205; 89051; A4215; 96365

== ENCOUNTER 2020-03-10 21:50 | Emergency (ER) | payer MEDICAID ==
[~2020-03-10 21:50] MED LIST changes: -ALBUMIN (HUMAN) 25% 200 ML IV SCH
[2020-03-10 22:26] LABS: BASOPHILS % (AUTO) 0.6 % (0.0-5.0); EOSINOPHILS % (AUTO) 2.9 % (0.0-8.0); HEMATOCRIT 32.5 % (42-54); LYMPHOCYTES % (AUTO) 20.8 % (21.0-51.0); MEAN CORPUSCULAR HEMOGLOBIN 35.7 pg (27.0-33.0); MEAN CORPUSCULAR HGB CONC 33.8 g/dL (32.0-36.0); MEAN CORPUSCULAR VOLUME 105.5 fL (79-99); MONOCYTES % (AUTO) 10.6 % (3.0-13.0); NEUTROPHILS % (AUTO) 63.7 % (40.0-77.0); PLATELET COUNT (AUTO) 89 K/uL (130-400); RED BLOOD CELL COUNT(AUTO) 3.08 MIL/uL (4.50-6.20); RED CELL DISTRIBUTION WIDTH 17.7 % (11.0-15.5); WHITE BLOOD COUNT (AUTO) 10.9 K/uL (4.8-10.8)
[2020-03-10] MEDS ORDERED: LIDOCAINE HCL 2% VISCOUS 15 ML UDCUP ONE (22:26)
[2020-03-10] MEDS ORDERED: FAMOTIDINE 20MG TAB 20 MG TAB ONE (22:26)
[2020-03-10] MEDS ORDERED: MAG HYDROX/AL HYDROX/SIMETH ES 30 ML SUSP UDCUP ONE (22:26)
[2020-03-10 22:27] LABS: APPEARANCE,URINE Clear (CLEAR); BILIRUBIN,URINE Large (NEGATIVE); COLOR,URINE Dark Yellow (YELLOW); GLUCOSE, URINE (UA) Negative (NEGATIVE); KETONES,URINE Negative (NEGATIVE); LEUKOCYTE ESTERASE ,URINE Trace (NEGATIVE); NITRATE,URINE Negative (NEGATIVE); OCCULT BLOOD,URINE Negative (NEGATIVE); PH,URINE 6.5 (5.0-8.0); PROTEIN,URINE Negative (NEGATIVE)
[2020-03-10 22:31] LABS: POTASSIUM 4.5 mmol/L (3.5-5.1)
[2020-03-10 22:35] LABS: BACTERIA,URINE None Seen /HPF (None Seen); MUCUS,URINE None Seen LPF (None Seen); RBC,URINE None Seen /HPF (0-1); SQUAMOUS EPITHELIAL CELL,UR None Seen /HPF (0-2)
[2020-03-10 22:35] LABS: ALBUMIN 1.6 g/dL (3.5-5.0); BILIRUBIN,TOTAL 8.2 mg/dL (0.2-1.0); TOTAL PROTEIN, SERUM 7.4 g/dL (6.0-8.3)
[2020-03-10] MEDS ORDERED: LACTULOSE 20 GM/30 ML UDCUP ONE (23:05)
== END 2020-03-10 23:37 | disposition home or self-care (01) ==
LOC: EDH 21:50
DX: K29.70 Gastritis, unspecified, without bleeding (principal); K21.9 Gastro-esophageal reflux disease without esophagitis; I10 Essential (primary) hypertension; Z87.891 Personal history of nicotine dependence
CPT/HCPCS: 36415; 71045; 80053; 81001; 82140; 83690; 84484; 85025; 93005

== ENCOUNTER 2020-03-14 18:30 | Inpatient (IN) | payer MEDICAID ==
[~2020-03-14] VITALS: Ht 182.9 cm; Wt 84.5 kg
[2020-03-14 19:46] LABS: BASOPHILS % (AUTO) 0.6 % (0.0-5.0); EOSINOPHILS % (AUTO) 2.4 % (0.0-8.0); HEMATOCRIT 32.6 % (42-54); LYMPHOCYTES % (AUTO) 17.4 % (21.0-51.0); MEAN CORPUSCULAR HEMOGLOBIN 35.7 pg (27.0-33.0); MEAN CORPUSCULAR VOLUME 104.8 fL (79-99); MONOCYTES % (AUTO) 10.5 % (3.0-13.0); NEUTROPHILS % (AUTO) 68.6 % (40.0-77.0); PLATELET COUNT (AUTO) 68 K/uL (130-400); RED BLOOD CELL COUNT(AUTO) 3.11 MIL/uL (4.50-6.20); RED CELL DISTRIBUTION WIDTH 17.1 % (11.0-15.5)
[2020-03-14 19:56] LABS: CREATININE 0.9 mg/dL (0.5-1.5); POTASSIUM 4.3 mmol/L (3.5-5.1)
[2020-03-14 20:00] LABS: ALBUMIN 1.8 g/dL (3.5-5.0); BILIRUBIN,TOTAL 8.1 mg/dL (0.2-1.0); TOTAL PROTEIN, SERUM 8.1 g/dL (6.0-8.3)
[2020-03-14 20:34] LABS: PLATELET MORPHOLOGY COMMENT DECREASED
[2020-03-14 21:46] LABS: INR 2.2 (0.85-1.15); PROTHROMBIN TIME 21.9 SEC (9.6-11.6)
[2020-03-14 21:48] LABS: PARTIAL THROMBOPLASTIN TIME 56.1 SEC (26.3-35.5)
[2020-03-14] MEDS ORDERED: LACTULOSE 20 GM/30 ML UDCUP ONE (22:25)
[2020-03-14] MEDS ORDERED: ONDANSETRON HCL 4 MG/2 ML VIAL ONE (22:25)
[2020-03-14] MEDS ORDERED: ONDANSETRON HCL 4 MG/2 ML VIAL IV PRN (22:45)
[2020-03-15] MEDS ORDERED: LACTULOSE 20 GM/30 ML UDCUP ONE (05:47)
[2020-03-15] MEDS: LACTULOSE 20 GM/30 ML UDCUP PO SCH ×4 (06:11→22:01)
[2020-03-15 06:18] LABS: BASOPHILS % (AUTO) 0.6 % (0.0-5.0); EOSINOPHILS % (AUTO) 2.8 % (0.0-8.0); LYMPHOCYTES % (AUTO) 26.9 % (21.0-51.0); MEAN CORPUSCULAR HEMOGLOBIN 35.7 pg (27.0-33.0); MEAN CORPUSCULAR HGB CONC 34.5 g/dL (32.0-36.0); MEAN CORPUSCULAR VOLUME 103.6 fL (79-99); MONOCYTES % (AUTO) 12.6 % (3.0-13.0); NEUTROPHILS % (AUTO) 56.5 % (40.0-77.0); PLATELET COUNT (AUTO) 55 K/uL (130-400); RED CELL DISTRIBUTION WIDTH 16.6 % (11.0-15.5); WHITE BLOOD COUNT (AUTO) 5.1 K/uL (4.8-10.8)
[2020-03-15 06:33] LABS: APPEARANCE,URINE CLEAR (CLEAR); BILIRUBIN,URINE MODERATE (NEGATIVE); GLUCOSE, URINE (UA) NEGATIVE (NEGATIVE); KETONES,URINE NEGATIVE (NEGATIVE); LEUKOCYTE ESTERASE ,URINE NEGATIVE (NEGATIVE); NITRATE,URINE NEGATIVE (NEGATIVE); OCCULT BLOOD,URINE NEGATIVE (NEGATIVE); PROTEIN,URINE NEGATIVE (NEGATIVE)
[2020-03-15 06:34] VITALS: BP 116/68
[2020-03-15 06:37] LABS: COLOR,URINE DARK YELLOW (YELLOW)
[2020-03-15 06:41] LABS: AMPHET/METH SCREEN,URINE NEGATIVE (NEGATIVE); BARBITURATE SCREEN, URINE NEGATIVE (NEGATIVE); BENZODIAZEPINES SCREEN,URINE NEGATIVE (NEGATIVE); CANNABINOID SCREEN,URINE NEGATIVE (NEGATIVE); COCAINE SCREEN,URINE NEGATIVE (NEGATIVE); OPIATE SCREEN,URINE NEGATIVE (NEGATIVE); PHENCYCLIDINE SCREEN,URINE NEGATIVE (NEGATIVE)
[2020-03-15 06:42] LABS: CREATININE 0.9 mg/dL (0.5-1.5); POTASSIUM 4.5 mmol/L (3.5-5.1)
[2020-03-15 06:47] LABS: BACTERIA,URINE Rare /HPF (None Seen); RBC,URINE 0-1 /HPF (0-1); SQUAMOUS EPITHELIAL CELL,UR Rare /HPF (0-2); WBC,URINE 0-1 /HPF (0-1)
[2020-03-15 07:30] VITALS: BP 129/78
[2020-03-15] MEDS: FAMOTIDINE 20MG TAB 20 MG TAB PO SCH ×2 (10:59→21:57)
[2020-03-15 11:00] VITALS: BP 110/69
[2020-03-15] MEDS ORDERED: FERATE PO (12:09)
[2020-03-15] MEDS ORDERED: PROP20TA96 PO (12:09)
[2020-03-15] MEDS ORDERED: ONDA8TAB12 PO (14:16)
[2020-03-15 20:45] VITALS: BP 118/76
[2020-03-15] MEDS ORDERED: TEMAZEPAM 7.5 MG CAPSULE PO ONE ×2 (20:45→21:53)
[2020-03-15] MEDS: DULOXETINE HCL 30 MG CAP PO SCH (21:57)
[2020-03-15] MEDS: MAGNESIUM OXIDE 400 MG TABLET PO SCH (21:57)
[2020-03-15] MEDS: PROPRANOLOL HCL 20 MG TAB PO SCH (21:57)
[2020-03-15] MEDS: RIFAXIMIN 550 MG TABLET PO SCH (21:58)
[2020-03-15] MEDS: PANTOPRAZOLE SODIUM 40 MG TABLET.DR PO SCH (21:58)
[2020-03-15] MEDS: MIDODRINE HCL 5 MG TABLET PO SCH (21:58)
[2020-03-15] MEDS: FERATE PO SCH (22:00)
[2020-03-16] VITALS (7 sets, daily range): BP systolic 123–136; BP diastolic 57–84
[2020-03-16] MEDS: LACTULOSE 20 GM/30 ML UDCUP PO SCH ×5 (05:45→20:36)
[2020-03-16] MEDS: PROPRANOLOL HCL 20 MG TAB PO SCH ×2 (08:34→20:39)
[2020-03-16] MEDS: FOLIC ACID 1 MG TABLET PO SCH (08:34)
[2020-03-16] MEDS: FERATE PO SCH ×3 (08:34→20:39)
[2020-03-16] MEDS: SPIRONOLACTONE 25 MG TAB PO SCH (08:34)
[2020-03-16] MEDS: FUROSEMIDE 20 MG TABLET PO SCH (08:34)
[2020-03-16] MEDS: PANTOPRAZOLE SODIUM 40 MG TABLET.DR PO SCH ×2 (08:35→20:38)
[2020-03-16] MEDS: FAMOTIDINE 20MG TAB 20 MG TAB PO SCH ×2 (08:35→20:38)
[2020-03-16] MEDS: MIDODRINE HCL 5 MG TABLET PO SCH ×3 (08:35→20:38)
[2020-03-16] MEDS: THIAMINE HCL 100 MG TABLET PO SCH (08:35)
[2020-03-16] MEDS: MAGNESIUM OXIDE 400 MG TABLET PO SCH ×2 (08:35→20:38)
[2020-03-16] MEDS: RIFAXIMIN 550 MG TABLET PO SCH ×2 (08:35→20:38)
[2020-03-16 09:09] LABS: BASOPHILS % (AUTO) 1.1 % (0.0-5.0); EOSINOPHILS % (AUTO) 3.3 % (0.0-8.0); HEMATOCRIT 29.1 % (42-54); LYMPHOCYTES % (AUTO) 27.3 % (21.0-51.0); MEAN CORPUSCULAR HEMOGLOBIN 35.5 pg (27.0-33.0); MEAN CORPUSCULAR HGB CONC 34.4 g/dL (32.0-36.0); MEAN CORPUSCULAR VOLUME 103.2 fL (79-99); MONOCYTES % (AUTO) 15.3 % (3.0-13.0); NEUTROPHILS % (AUTO) 52.3 % (40.0-77.0); PLATELET COUNT (AUTO) 58 K/uL (130-400); RED BLOOD CELL COUNT(AUTO) 2.82 MIL/uL (4.50-6.20); RED CELL DISTRIBUTION WIDTH 16.6 % (11.0-15.5); WHITE BLOOD COUNT (AUTO) 4.5 K/uL (4.8-10.8)
[2020-03-16 09:16] LABS: CREATININE 0.9 mg/dL (0.5-1.5); POTASSIUM 4.3 mmol/L (3.5-5.1)
[2020-03-16 09:20] LABS: ALBUMIN 1.4 g/dL (3.5-5.0); BILIRUBIN,DIRECT 5.1 mg/dL (0.0-0.3); BILIRUBIN,TOTAL 7.9 mg/dL (0.2-1.0); MAGNESIUM 1.8 mg/dL (1.80-2.40); TOTAL PROTEIN, SERUM 6.7 g/dL (6.0-8.3)
[2020-03-16 09:48] LABS: INR 2.38 (0.85-1.15); PROTHROMBIN TIME 23.5 SEC (9.6-11.6)
[2020-03-16 09:49] LABS: PARTIAL THROMBOPLASTIN TIME 68.7 SEC (26.3-35.5)
[2020-03-16] MEDS: DULOXETINE HCL 30 MG CAP PO SCH (20:39)
[2020-03-17 03:38] VITALS: BP 114/65
[2020-03-17 05:58] LABS: BASOPHILS % (AUTO) 0.8 % (0.0-5.0); EOSINOPHILS % (AUTO) 3.2 % (0.0-8.0); HEMATOCRIT 30.8 % (42-54); LYMPHOCYTES % (AUTO) 23.7 % (21.0-51.0); MEAN CORPUSCULAR HEMOGLOBIN 36.8 pg (27.0-33.0); MEAN CORPUSCULAR HGB CONC 35.4 g/dL (32.0-36.0); MEAN CORPUSCULAR VOLUME 104.1 fL (79-99); MONOCYTES % (AUTO) 12.5 % (3.0-13.0); NEUTROPHILS % (AUTO) 59.4 % (40.0-77.0); PLATELET COUNT (AUTO) 60 K/uL (130-400); RED BLOOD CELL COUNT(AUTO) 2.96 MIL/uL (4.50-6.20)
[2020-03-17 06:15] LABS: CREATININE 0.8 mg/dL (0.5-1.5); POTASSIUM 4.1 mmol/L (3.5-5.1)
[2020-03-17 08:12] VITALS: BP 126/62
[2020-03-17] MEDS: LACTULOSE 20 GM/30 ML UDCUP PO SCH ×2 (09:00→14:00)
[2020-03-17] MEDS: MIDODRINE HCL 5 MG TABLET PO SCH ×2 (09:00→14:00)
[2020-03-17] MEDS: THIAMINE HCL 100 MG TABLET PO SCH (09:00)
[2020-03-17] MEDS: FOLIC ACID 1 MG TABLET PO SCH (09:00)
[2020-03-17] MEDS: RIFAXIMIN 550 MG TABLET PO SCH (09:00)
[2020-03-17] MEDS: MAGNESIUM OXIDE 400 MG TABLET PO SCH (09:00)
[2020-03-17] MEDS: PANTOPRAZOLE SODIUM 40 MG TABLET.DR PO SCH (09:00)
[2020-03-17] MEDS: SPIRONOLACTONE 25 MG TAB PO SCH (09:00)
[2020-03-17] MEDS: FAMOTIDINE 20MG TAB 20 MG TAB PO SCH (09:00)
[2020-03-17] MEDS: PROPRANOLOL HCL 20 MG TAB PO SCH (09:00)
[2020-03-17] MEDS: FUROSEMIDE 20 MG TABLET PO SCH (09:00)
[2020-03-17] MEDS: FERATE PO SCH ×2 (09:00→14:00)
[2020-03-17 11:58] VITALS: BP 134/85
== END 2020-03-17 16:34 | disposition home or self-care (01) | DRG 280 ==
LOC: EDH 18:30 → EDHIP 18:31 → 4DH 03-15 05:39 → 4CH 03-15 15:47
PROVIDERS: ADMIT Internal Medicine; ATTEND Internal Medicine
DX: K70.31 Alcoholic cirrhosis of liver with ascites (principal); G93.41 Metabolic encephalopathy; Z20.828 Contact with and (suspected) exposure to other viral communicable diseases; K21.9 Gastro-esophageal reflux disease without esophagitis; K59.00 Constipation, unspecified; I10 Essential (primary) hypertension; Z87.891 Personal history of nicotine dependence; Z80.9 Family history of malignant neoplasm, unspecified
CPT/HCPCS: 36415; 71045; 76705; 80048; 80053; 80076; 80305; 81001; 82140; 82150; 82550; 83690; 83735; 84484; 85025; 85610; 85730; 87426; 93005; 99291; G0378; J2405; U0003

== ENCOUNTER 2020-04-03 20:23 | Inpatient (IN) | payer MEDICAID, OTHER ==
[~2020-04-03] VITALS: Ht 182.9 cm; Wt 80.7 kg
[~2020-04-03 20:23] MED LIST changes: -CEPH-578 PO; +FERATE PO; +MAGN400T56 PO; -MAGN400T8 PO; +ONDA8TAB12 PO; +POTA-10 PO; -POTA-9 PO; +PROP20TA96 PO
[2020-04-03] MEDS ORDERED: 0.9%NACL 1000ML 1,000 ML IV ONE (20:52)
[2020-04-03] MEDS ORDERED: ONDANSETRON 4MG INJ ONE (20:52)
[2020-04-03] MEDS ORDERED: ACETAMINOPHEN 325 MG TAB ONE (20:53)
[2020-04-03] MEDS ORDERED: IOHEXOL-350 75 ML VIAL IV ONE (20:56)
[2020-04-03 21:12] LABS: BASOPHILS % (AUTO) 0.7 % (0.0-5.0); HEMATOCRIT 32.1 % (42-54); LYMPHOCYTES % (AUTO) 25.4 % (21.0-51.0); MEAN CORPUSCULAR HEMOGLOBIN 35.9 pg (27.0-33.0); MEAN CORPUSCULAR VOLUME 105.6 fL (79-99); MONOCYTES % (AUTO) 12.4 % (3.0-13.0); PLATELET COUNT (AUTO) 106 K/uL (130-400); RED BLOOD CELL COUNT(AUTO) 3.04 MIL/uL (4.50-6.20); RED CELL DISTRIBUTION WIDTH 15.5 % (11.0-15.5); WHITE BLOOD COUNT (AUTO) 8.1 K/uL (4.8-10.8)
[2020-04-03 21:22] LABS: APPEARANCE,URINE Clear (CLEAR); BILIRUBIN,URINE Moderate (NEGATIVE); COLOR,URINE Dark Yellow (YELLOW); CREATININE 0.9 mg/dL (0.5-1.5); GLUCOSE, URINE (UA) Negative (NEGATIVE); KETONES,URINE Negative (NEGATIVE); LEUKOCYTE ESTERASE ,URINE Negative (NEGATIVE); NITRATE,URINE Negative (NEGATIVE); OCCULT BLOOD,URINE Negative (NEGATIVE); POTASSIUM 4.7 mmol/L (3.5-5.1); PROTEIN,URINE Negative (NEGATIVE)
[2020-04-03 21:27] LABS: ALBUMIN 1.6 g/dL (3.5-5.0); BILIRUBIN,TOTAL 6.8 mg/dL (0.2-1.0)
[2020-04-03 21:29] LABS: AMPHET/METH SCREEN,URINE NEGATIVE (NEGATIVE); BARBITURATE SCREEN, URINE NEGATIVE (NEGATIVE); BENZODIAZEPINES SCREEN,URINE NEGATIVE (NEGATIVE); CANNABINOID SCREEN,URINE NEGATIVE (NEGATIVE); COCAINE SCREEN,URINE NEGATIVE (NEGATIVE); OPIATE SCREEN,URINE NEGATIVE (NEGATIVE); PHENCYCLIDINE SCREEN,URINE NEGATIVE (NEGATIVE)
[2020-04-03] MEDS ORDERED: METOCLOPRAMIDE 10 MG/2 ML VIAL ONE (21:32)
[2020-04-03] MEDS ORDERED: FAMOTIDINE 20MG VIAL IV ONE (21:33)
[2020-04-03] MEDS ORDERED: PANTOPRAZOLE 40 MG/VIAL ONE (21:33)
[2020-04-03 21:50] LABS: AMORPHOUS SEDIMENT,UR Rare /LPF (None Seen); BACTERIA,URINE Rare /HPF (None Seen); RBC,URINE 0-1 /HPF (0-1); SQUAMOUS EPITHELIAL CELL,UR Rare /HPF (0-2); WBC,URINE 0-1 /HPF (0-1)
[2020-04-03 21:58] LABS: INR 2.34 (0.85-1.15); PROTHROMBIN TIME 23.2 SEC (9.6-11.6)
[2020-04-03 21:59] LABS: PARTIAL THROMBOPLASTIN TIME 61.8 SEC (26.3-35.5)
[2020-04-03] MEDS ORDERED: LACTULOSE 20 GM/30 ML UDCUP ONE (22:52)
[2020-04-03] MEDS: 0.9%NACL 1000ML 1,000 ML IV SCH (23:45)
[2020-04-03] MEDS: PHYTONADIONE 10 MG/1 ML AMP IM SCH (23:45)
[2020-04-03] MEDS: RIFAXIMIN 550 MG TABLET PO SCH (23:45)
[2020-04-04] MEDS ORDERED: PHYTONADIONE 10 MG/1 ML AMP ONE (00:15)
[2020-04-04 01:23] LABS: MAGNESIUM 1.4 mg/dL (1.80-2.40); PHOSPHORUS 3.3 mg/dL (2.5-4.9)
[2020-04-04] MEDS ORDERED: 0.9% NACL 250ML 250 ML IV ONE ×2 (05:48→11:20)
[2020-04-04 07:21] LABS: BASOPHILS % (AUTO) 0.6 % (0.0-5.0); EOSINOPHILS % (AUTO) 3.1 % (0.0-8.0); HEMATOCRIT 27.2 % (42-54); LYMPHOCYTES % (AUTO) 24.8 % (21.0-51.0); MEAN CORPUSCULAR HEMOGLOBIN 34.7 pg (27.0-33.0); MEAN CORPUSCULAR HGB CONC 33.1 g/dL (32.0-36.0); PLATELET COUNT (AUTO) 82 K/uL (130-400); RED BLOOD CELL COUNT(AUTO) 2.59 MIL/uL (4.50-6.20); RED CELL DISTRIBUTION WIDTH 15.7 % (11.0-15.5); WHITE BLOOD COUNT (AUTO) 6.2 K/uL (4.8-10.8)
[2020-04-04 07:29] LABS: ALBUMIN 1.4 g/dL (3.5-5.0); BILIRUBIN,TOTAL 6.2 mg/dL (0.2-1.0); CREATININE 0.9 mg/dL (0.5-1.5); POTASSIUM 3.6 mmol/L (3.5-5.1); TOTAL PROTEIN, SERUM 6.8 g/dL (6.0-8.3)
[2020-04-04 08:12] LABS: INR 2.09 (0.85-1.15); PROTHROMBIN TIME 20.9 SEC (9.6-11.6)
[2020-04-04 08:13] LABS: PARTIAL THROMBOPLASTIN TIME 50.1 SEC (26.3-35.5)
[2020-04-04] MEDS: PANTOPRAZOLE 40 MG TAB DR PO SCH ×2 (09:00→21:03)
[2020-04-04] MEDS: LACTULOSE 20 GM/30 ML UDCUP PO SCH ×3 (09:00→21:03)
[2020-04-04] MEDS: MAGNESIUM OXIDE 400 MG TABLET PO SCH ×2 (09:00→21:03)
[2020-04-04] MEDS: FERROUS GLUCONATE TABLET PO SCH (09:00)
[2020-04-04] MEDS: FUROSEMIDE 20 MG TABLET PO SCH (09:00)
[2020-04-04] MEDS: SPIRONOLACTONE 25 MG TAB PO SCH (09:00)
[2020-04-04] MEDS: MIDODRINE HCL 5 MG TABLET PO SCH ×3 (09:00→21:04)
[2020-04-04] MEDS: RIFAXIMIN 550 MG TABLET PO SCH ×2 (09:00→21:03)
[2020-04-04] MEDS ORDERED: FAMOTIDINE 20MG VIAL IV SCH (09:00)
[2020-04-04] MEDS ORDERED: ALBUMIN (HUMAN) 25% 100 ML IV ONE (09:19)
[2020-04-04] MEDS: 0.9%NACL 1000ML 1,000 ML IV SCH (09:45)
[2020-04-04] MEDS ORDERED: LACTULOSE 20 GM/30 ML UDCUP ONE (10:20)
[2020-04-04] MEDS ORDERED: PANTOPRAZOLE 40 MG TAB DR ONE (10:21)
[2020-04-04] MEDS ORDERED: FUROSEMIDE 20 MG TABLET ONE (10:21)
[2020-04-04] MEDS ORDERED: MIDODRINE HCL 5 MG TABLET ONE (10:21)
[2020-04-04] MEDS ORDERED: MAGNESIUM OXIDE 400 MG TABLET PO ONE (10:21)
[2020-04-04] MEDS ORDERED: SPIRONOLACTONE 25 MG TAB ONE (10:22)
[2020-04-04] MEDS: CEFTRIAXONE 1G VIAL IV SCH ×2 (12:00)
[2020-04-04 14:42] VITALS: BP 141/69
[2020-04-04 16:26] VITALS: BP 127/71
[2020-04-04 20:00] VITALS: BP 120/66
[2020-04-04] MEDS ORDERED: DULOXETINE HCL 30 MG CAP PO SCH (21:00)
[2020-04-04] MEDS: PHYTONADIONE 10 MG/1 ML AMP IM SCH (21:05)
[2020-04-05] VITALS: BP 100/48
[2020-04-05] MEDS: CEFTRIAXONE 1G VIAL IV SCH ×2 (01:02→11:57)
[2020-04-05 04:00] VITALS: BP 130/71
[2020-04-05 04:29] LABS: MEAN CORPUSCULAR HEMOGLOBIN 35.2 pg (27.0-33.0); MEAN CORPUSCULAR HGB CONC 33.8 g/dL (32.0-36.0); RED BLOOD CELL COUNT(AUTO) 2.5 MIL/uL (4.50-6.20); RED CELL DISTRIBUTION WIDTH 14.6 % (11.0-15.5)
[2020-04-05 04:51] LABS: ALBUMIN 1.4 g/dL (3.5-5.0); BILIRUBIN,TOTAL 6.3 mg/dL (0.2-1.0); CREATININE 0.7 mg/dL (0.5-1.5); POTASSIUM 3.5 mmol/L (3.5-5.1); TOTAL PROTEIN, SERUM 6.6 g/dL (6.0-8.3)
[2020-04-05 08:24] VITALS: BP 127/69
[2020-04-05] MEDS: MAGNESIUM OXIDE 400 MG TABLET PO SCH (10:19)
[2020-04-05] MEDS: LACTULOSE 20 GM/30 ML UDCUP PO SCH ×2 (10:19→14:16)
[2020-04-05] MEDS: RIFAXIMIN 550 MG TABLET PO SCH (10:20)
[2020-04-05] MEDS: MIDODRINE HCL 5 MG TABLET PO SCH ×2 (10:20→14:16)
[2020-04-05] MEDS: PANTOPRAZOLE 40 MG TAB DR PO SCH (10:21)
[2020-04-05] MEDS: FERROUS GLUCONATE TABLET PO SCH (10:21)
[2020-04-05] MEDS: SPIRONOLACTONE 25 MG TAB PO SCH (10:21)
[2020-04-05] MEDS: FUROSEMIDE 20 MG TABLET PO SCH (10:22)
[2020-04-05 12:04] VITALS: BP 125/79
[2020-04-05 16:20] VITALS: BP 119/66
[2020-05-03] MEDS ORDERED: FURO40TA5 PO (17:09)
[2020-05-03] MEDS ORDERED: CYCL5TAB PO (17:09)
[2020-05-03] MEDS ORDERED: SPIR50TA5 PO (17:09)
[2020-05-07] MEDS ORDERED: LACT10SO9 PO (15:30)
[2020-05-24] MEDS ORDERED: Folic Acid PO (09:50)
[2020-05-24] MEDS ORDERED: folate PO (09:50)
[2020-05-24] MEDS ORDERED: MIDO5TAB4 PO (09:50)
== END 2020-04-05 18:00 | disposition home or self-care (01) | DRG 433 ==
LOC: EDH 20:23 → EDHIP 20:24 → 3BH 04-04 14:22
PROVIDERS: ADMIT Internal Medicine; ATTEND Internal Medicine
PROC: 30233K1 Transfusion of Nonautologous Frozen Plasma into Peripheral Vein, Percutaneous Approach (ICD-10-PCS; principal; 2020-04-04)
DX: K70.40 Alcoholic hepatic failure without coma (principal); D68.4 Acquired coagulation factor deficiency; K70.31 Alcoholic cirrhosis of liver with ascites; Z56.0 Unemployment, unspecified; Z80.9 Family history of malignant neoplasm, unspecified; K21.9 Gastro-esophageal reflux disease without esophagitis; I10 Essential (primary) hypertension; Z87.891 Personal history of nicotine dependence; Z79.899 Other long term (current) drug therapy; Z87.19 Personal history of other diseases of the digestive system
CPT/HCPCS: 36415; 71045; 74177; 76705; 80053; 80305; 81001; 82140; 82150; 82550; 83605; 83690; 83735; 84100; 84145; 84484; 85025; 85027; 85610; 85730; 86850; 86900; 86901; 86927; 87040; 93005; C9113; G0378; J0696; J2405; J2765; J3430; J3490; J7030; J7050; P9017; P9046; Q9967

== ENCOUNTER 2020-05-01 10:13 | Inpatient (IN) | payer OTHER ==
[~2020-05-01] VITALS: Ht 182.9 cm; Wt 80.6 kg
[2020-05-01 10:44] LABS: BASOPHILS % (AUTO) 0.6 % (0.0-5.0); HEMATOCRIT 34.4 % (42-54); LYMPHOCYTES % (AUTO) 15.6 % (21.0-51.0); MEAN CORPUSCULAR HGB CONC 34.3 g/dL (32.0-36.0); MEAN CORPUSCULAR VOLUME 102.1 fL (79-99); MONOCYTES % (AUTO) 7.9 % (3.0-13.0); NEUTROPHILS % (AUTO) 73.3 % (40.0-77.0); PLATELET COUNT (AUTO) 109 K/uL (130-400); RED BLOOD CELL COUNT(AUTO) 3.37 MIL/uL (4.50-6.20); RED CELL DISTRIBUTION WIDTH 14.1 % (11.0-15.5); WHITE BLOOD COUNT (AUTO) 8.1 K/uL (4.8-10.8)
[2020-05-01 10:55] LABS: ALBUMIN 1.6 g/dL (3.5-5.0); BILIRUBIN,TOTAL 9.2 mg/dL (0.2-1.0); POTASSIUM 5.1 mmol/L (3.5-5.1); TOTAL PROTEIN, SERUM 8.8 g/dL (6.0-8.3)
[2020-05-01 10:59] LABS: INR 2.34 (0.85-1.15); PROTHROMBIN TIME 23.6 SEC (9.6-11.6)
[2020-05-01 11:00] LABS: PARTIAL THROMBOPLASTIN TIME 53.7 SEC (26.3-35.5)
[2020-05-01] MEDS: LACTULOSE 20 GM/30 ML UDCUP PO SCH ×2 (12:55→14:00)
[2020-05-01] MEDS ORDERED: CEFTRIAXONE 1G VIAL IVP SCH (13:00)
[2020-05-01] MEDS ORDERED: PHARMACY COMMUNICATION MISC SCH (13:00)
[2020-05-01] MEDS ORDERED: LACTULOSE 20 GM/30 ML UDCUP PR SCH (13:00)
[2020-05-01] MEDS ORDERED: CEFTRIAXONE 1G VIAL ONE (13:00)
[2020-05-01] MEDS ORDERED: LACTULOSE 20 GM/30 ML UDCUP ONE (13:28)
[2020-05-01] MEDS ORDERED: ONDANSETRON 4MG INJ IVP PRN (14:00)
[2020-05-01] MEDS ORDERED: IPRATROPIUM/ALBUTEROL SULFATE 3 ML SOLUTION IH SCH (14:00)
[2020-05-01] MEDS ORDERED: LACTATED RINGERS 1000ML 1,000 ML IV ONE (14:00)
[2020-05-01] MEDS ORDERED: 0.9%NACL 1000ML 1,000 ML IV SCH (14:00)
[2020-05-01] MEDS ORDERED: LACTATED RINGERS 1000ML 500 ML IV ONE (14:15)
[2020-05-01 16:18] VITALS: BP 127/71
[2020-05-01] MEDS ORDERED: HALOPERIDOL INJ 5 MG/ML VIAL IM PRN (17:00)
[2020-05-01] MEDS ORDERED: HALOPERIDOL DECAN(MONTHLY) 100 MG/ML IM SCH (17:30)
[2020-05-01] MEDS ORDERED: HALOPERIDOL INJ 5 MG/ML VIAL ONE (17:34)
[2020-05-01 19:48] VITALS: BP 134/89
[2020-05-01 23:00] VITALS: BP_SYST 132; BP_SYST 134; BP_DIAS 84; BP_DIAS 89
[2020-05-02] MEDS ORDERED: RIFAXIMIN 550 MG TABLET ONE (00:44)
[2020-05-02] MEDS ORDERED: RIFAXIMIN 550 MG TABLET PO SCH (00:45)
[2020-05-02] MEDS ORDERED: FOLIC ACID 1 MG TABLET PO ONE (01:00)
[2020-05-02] MEDS ORDERED: PHARMACY COMMUNICATION MISC PRN (01:00)
[2020-05-02] MEDS ORDERED: MULTIVITAMIN TABLET PO ONE (01:00)
[2020-05-02] MEDS ORDERED: THIAMINE HCL 100 MG/ML 2ML VIAL ONE (01:03)
[2020-05-02] MEDS: LACTULOSE 20 GM/30 ML UDCUP PO SCH ×4 (01:08→20:26)
[2020-05-02 04:36] VITALS: BP 137/66
[2020-05-02 07:00] VITALS: BP 145/80
[2020-05-02] MEDS: RIFAXIMIN 550 MG TABLET PO SCH (09:00)
[2020-05-02] MEDS: PANTOPRAZOLE 40 MG/VIAL IVP SCH (09:00)
[2020-05-02] MEDS ORDERED: THIAMINE HCL 100 MG/ML 2ML VIAL IM ONE (09:00)
[2020-05-02] MEDS ORDERED: LORAZEPAM 2 MG/ML 1 ML VIAL IVP SCH ×2 (09:45→18:00)
[2020-05-02 12:00] VITALS: BP 146/89
[2020-05-02] MEDS: CEFTRIAXONE 1G VIAL IVP SCH (14:12)
[2020-05-02 16:00] VITALS: BP 130/68
[2020-05-02 19:29] VITALS: BP 156/97
[2020-05-03] VITALS (7 sets, daily range): BP systolic 122–155; BP diastolic 65–91
[2020-05-03 05:28] LABS: HEMATOCRIT 30.1 % (42-54); MEAN CORPUSCULAR HEMOGLOBIN 34.8 pg (27.0-33.0); MEAN CORPUSCULAR HGB CONC 34.6 g/dL (32.0-36.0); MEAN CORPUSCULAR VOLUME 100.7 fL (79-99); RED BLOOD CELL COUNT(AUTO) 2.99 MIL/uL (4.50-6.20); RED CELL DISTRIBUTION WIDTH 13.9 % (11.0-15.5); WHITE BLOOD COUNT (AUTO) 9.2 K/uL (4.8-10.8)
[2020-05-03 05:51] LABS: ALBUMIN 1.5 g/dL (3.5-5.0); BILIRUBIN,TOTAL 10.7 mg/dL (0.2-1.0); POTASSIUM 3.8 mmol/L (3.5-5.1); TOTAL PROTEIN, SERUM 8.1 g/dL (6.0-8.3)
[2020-05-03] MEDS: CEFTRIAXONE 1G VIAL IVP SCH (12:29)
[2020-05-03] MEDS: PANTOPRAZOLE 40 MG/VIAL IVP SCH (12:29)
[2020-05-03] MEDS: RIFAXIMIN 550 MG TABLET PO SCH (12:33)
[2020-05-03] MEDS: LACTULOSE 20 GM/30 ML UDCUP PO SCH ×3 (12:33→23:25)
[2020-05-03] MEDS ORDERED: FAMO20TA8 PO (17:09)
[2020-05-03] MEDS ORDERED: CYCL5TAB PO ×2 (17:09)
[2020-05-03] MEDS ORDERED: LACT10SO76 PO (17:09)
[2020-05-03] MEDS ORDERED: FURO40TA5 PO ×2 (17:09)
[2020-05-03] MEDS ORDERED: THIA100T75 PO (17:09)
[2020-05-03] MEDS ORDERED: SPIR50TA5 PO ×2 (17:09)
[2020-05-03] MEDS ORDERED: POTA-79 PO (17:09)
[2020-05-03] MEDS ORDERED: CYAN1TAB44 PO (17:09)
[2020-05-03] MEDS ORDERED: PANT40TA54 PO (17:09)
[2020-05-04 03:58] LABS: HEMATOCRIT 30.5 % (42-54); MEAN CORPUSCULAR HEMOGLOBIN 34.9 pg (27.0-33.0); MEAN CORPUSCULAR HGB CONC 34.8 g/dL (32.0-36.0); MEAN CORPUSCULAR VOLUME 100.3 fL (79-99); RED BLOOD CELL COUNT(AUTO) 3.04 MIL/uL (4.50-6.20); WHITE BLOOD COUNT (AUTO) 8.8 K/uL (4.8-10.8)
[2020-05-04 04:16] LABS: ALBUMIN 1.5 g/dL (3.5-5.0); BILIRUBIN,TOTAL 9.7 mg/dL (0.2-1.0); POTASSIUM 4.1 mmol/L (3.5-5.1)
[2020-05-04 04:32] VITALS: BP 135/85
[2020-05-04 08:00] VITALS: BP 132/80
[2020-05-04] MEDS: PANTOPRAZOLE 40 MG/VIAL IVP SCH (10:36)
[2020-05-04] MEDS: RIFAXIMIN 550 MG TABLET PO SCH (10:36)
[2020-05-04] MEDS: LACTULOSE 20 GM/30 ML UDCUP PO SCH ×3 (10:36→21:48)
[2020-05-04] MEDS: 0.9%NACL 1000ML 1,000 ML IV SCH ×2 (10:36→22:05)
[2020-05-04 12:00] VITALS: BP 120/63
[2020-05-04 16:00] VITALS: BP 138/85
[2020-05-04] MEDS: CEFTRIAXONE 1G VIAL IVP SCH (16:35)
[2020-05-04 20:06] VITALS: BP 140/84
[2020-05-05] VITALS (7 sets, daily range): BP systolic 99–140; BP diastolic 59–85
[2020-05-05 04:43] LABS: HEMATOCRIT 27.5 % (42-54); MEAN CORPUSCULAR HEMOGLOBIN 34.7 pg (27.0-33.0); MEAN CORPUSCULAR HGB CONC 34.5 g/dL (32.0-36.0); MEAN CORPUSCULAR VOLUME 100.4 fL (79-99); PLATELET COUNT (AUTO) 68 K/uL (130-400); RED BLOOD CELL COUNT(AUTO) 2.74 MIL/uL (4.50-6.20); RED CELL DISTRIBUTION WIDTH 13.9 % (11.0-15.5); WHITE BLOOD COUNT (AUTO) 7.9 K/uL (4.8-10.8)
[2020-05-05 05:06] LABS: ALBUMIN 1.4 g/dL (3.5-5.0); BILIRUBIN,TOTAL 8.4 mg/dL (0.2-1.0); CREATININE 0.9 mg/dL (0.5-1.5); POTASSIUM 3.9 mmol/L (3.5-5.1); TOTAL PROTEIN, SERUM 7.2 g/dL (6.0-8.3)
[2020-05-05] MEDS: PANTOPRAZOLE 40 MG/VIAL IVP SCH (11:31)
[2020-05-05] MEDS: LACTULOSE 20 GM/30 ML UDCUP PO SCH ×4 (11:31→23:15)
[2020-05-05] MEDS: RIFAXIMIN 550 MG TABLET PO SCH (11:31)
[2020-05-05] MEDS: 0.9%NACL 1000ML 1,000 ML IV SCH (11:32)
[2020-05-05] MEDS: CEFTRIAXONE 1G VIAL IVP SCH (15:48)
[2020-05-06] VITALS (22 sets, daily range): BP systolic 94–144; BP diastolic 43–99
[2020-05-06] MEDS: 0.9%NACL 1000ML 1,000 ML IV SCH ×2 (00:45→16:07)
[2020-05-06 04:42] LABS: HEMATOCRIT 27.9 % (42-54); MEAN CORPUSCULAR HEMOGLOBIN 34.5 pg (27.0-33.0); MEAN CORPUSCULAR HGB CONC 34.1 g/dL (32.0-36.0); MEAN CORPUSCULAR VOLUME 101.5 fL (79-99); PLATELET COUNT (AUTO) 70 K/uL (130-400); RED BLOOD CELL COUNT(AUTO) 2.75 MIL/uL (4.50-6.20); RED CELL DISTRIBUTION WIDTH 13.9 % (11.0-15.5); WHITE BLOOD COUNT (AUTO) 7.5 K/uL (4.8-10.8)
[2020-05-06 05:09] LABS: THYROID STIMULATING HORMONE 1.55 uIU/mL (0.36-3.74)
[2020-05-06] MEDS: LACTULOSE 20 GM/30 ML UDCUP PO SCH ×4 (05:15→21:35)
[2020-05-06 05:34] LABS: EOSINOPHILS % (AUTO) 0.2 % (0.0-8.0); LYMPHOCYTES % (AUTO) 15.6 % (21.0-51.0); MONOCYTES % (AUTO) 0.9 % (3.0-13.0)
[2020-05-06 06:17] LABS: ALBUMIN 1.3 g/dL (3.5-5.0); BILIRUBIN,TOTAL 7.8 mg/dL (0.2-1.0); CREATININE 0.9 mg/dL (0.5-1.5); POTASSIUM 3.8 mmol/L (3.5-5.1); TOTAL PROTEIN, SERUM 7.2 g/dL (6.0-8.3)
[2020-05-06] MEDS: RIFAXIMIN 550 MG TABLET PO SCH (09:00)
[2020-05-06] MEDS: PANTOPRAZOLE 40 MG/VIAL IVP SCH (09:21)
[2020-05-06 10:20] LABS: INR 2.75 (0.85-1.15); PROTHROMBIN TIME 27.3 SEC (9.6-11.6)
[2020-05-06 10:21] LABS: PARTIAL THROMBOPLASTIN TIME 81.1 SEC (26.3-35.5)
[2020-05-06] MEDS ORDERED: PHARMACY COMMUNICATION MISC SCH (11:00)
[2020-05-06] MEDS ORDERED: PHYTONADIONE 10 MG in 0.9%NACL 50ML 50 ML IV SCH (11:15)
[2020-05-06] MEDS ORDERED: PROPOFOL 10 MG/ML 20ML VIAL IV ONE ×2 (12:23)
[2020-05-06] MEDS: CEFTRIAXONE 1G VIAL IVP SCH (14:48)
[2020-05-07 03:54] VITALS: BP 136/79
[2020-05-07] MEDS: LACTULOSE 20 GM/30 ML UDCUP PO SCH ×2 (06:01→10:42)
[2020-05-07 07:44] LABS: HEMATOCRIT 29.3 % (42-54)
[2020-05-07 07:57] LABS: ALBUMIN 1.6 g/dL (3.5-5.0); BILIRUBIN,TOTAL 8.4 mg/dL (0.2-1.0); CREATININE 0.8 mg/dL (0.5-1.5); POTASSIUM 3.5 mmol/L (3.5-5.1); TOTAL PROTEIN, SERUM 7.1 g/dL (6.0-8.3); URIC ACID 2.5 mg/dL (2.6-7.2)
[2020-05-07 08:01] LABS: INR 1.98 (0.85-1.15); PROTHROMBIN TIME 20.3 SEC (9.6-11.6)
[2020-05-07 08:02] LABS: PARTIAL THROMBOPLASTIN TIME 55.7 SEC (26.3-35.5)
[2020-05-07 08:06] VITALS: BP 141/82
[2020-05-07] MEDS: PANTOPRAZOLE 40 MG/VIAL IVP SCH (08:33)
[2020-05-07] MEDS: RIFAXIMIN 550 MG TABLET PO SCH (08:33)
[2020-05-07] MEDS: 0.9%NACL 1000ML 1,000 ML IV SCH (10:42)
[2020-05-07 11:30] VITALS: BP 131/71
[2020-05-07] MEDS: CEFTRIAXONE 1G VIAL IVP SCH (13:25)
[2020-05-07 15:30] VITALS: BP 145/82
[2020-05-07] MEDS ORDERED: LACT10SO9 PO ×2 (15:30)
[2020-05-24] MEDS ORDERED: MIDO5TAB4 PO (09:50)
[2020-05-24] MEDS ORDERED: Folic Acid PO (09:50)
[2020-05-24] MEDS ORDERED: folate PO (09:50)
== END 2020-05-07 18:23 | disposition home or self-care (01) | DRG 442 ==
LOC: EDH 10:13 → EDHIP 12:46 → 4DH 16:20
PROVIDERS: ADMIT Internal Medicine; ATTEND Internal Medicine
PROC: 0DJ08ZZ Inspection of Upper Intestinal Tract, Via Natural or Artificial Opening Endoscopic (ICD-10-PCS; principal; 2020-05-06)
PROC: 30233K1 Transfusion of Nonautologous Frozen Plasma into Peripheral Vein, Percutaneous Approach (ICD-10-PCS; 2020-05-07)
DX: K72.90 Hepatic failure, unspecified without coma (principal); D68.9 Coagulation defect, unspecified; E87.1 Hypo-osmolality and hyponatremia; N39.0 Urinary tract infection, site not specified; K76.6 Portal hypertension; D62 Acute posthemorrhagic anemia; K92.2 Gastrointestinal hemorrhage, unspecified; D69.6 Thrombocytopenia, unspecified; K70.31 Alcoholic cirrhosis of liver with ascites; N18.2 Chronic kidney disease, stage 2 (mild); D53.9 Nutritional anemia, unspecified; E66.9 Obesity, unspecified; Z20.822 Contact with and (suspected) exposure to COVID-19; E87.8 Other disorders of electrolyte and fluid balance, not elsewhere classified; F10.10 Alcohol abuse, uncomplicated; R16.1 Splenomegaly, not elsewhere classified; F32.9 Major depressive disorder, single episode, unspecified; R53.81 Other malaise; K31.89 Other diseases of stomach and duodenum; Z68.24 Body mass index [BMI] 24.0-24.9, adult; Z87.19 Personal history of other diseases of the digestive system; Z79.899 Other long term (current) drug therapy
CPT/HCPCS: 36415; 36430; 43235; 70450; 74018; 76700; 80053; 82140; 82270; 83605; 83930; 84443; 84550; 85014; 85018; 85025; 85027; 85384; 85610; 85730; 86850; 86900; 86901; 86927; 87040; 87077; 87186; 87426; 92610; A4606; C9113; G0378; J0696; J1630; J2060; J2704; J3411; J3430; J7030; J7120; P9017

== ENCOUNTER 2020-05-07 18:33 | Inpatient (IN) | payer OTHER ==
[~2020-05-07] VITALS: Ht 175.3 cm; Wt 82.4 kg
[~2020-05-07 18:33] MED LIST changes: +CYAN1TAB44 PO; +CYCL5TAB PO; +FAMO20TA8 PO; +FURO40TA5 PO; +LACT10SO76 PO; +LACT10SO9 PO; +PANT40TA54 PO; +POTA-79 PO; +SPIR50TA5 PO; +THIA100T75 PO
[2020-05-07 18:53] LABS: BASOPHILS % (AUTO) 0.4 % (0.0-5.0); EOSINOPHILS % (AUTO) 2.2 % (0.0-8.0); HEMATOCRIT 33.8 % (42-54); LYMPHOCYTES % (AUTO) 16.3 % (21.0-51.0); MEAN CORPUSCULAR HEMOGLOBIN 34.8 pg (27.0-33.0); MEAN CORPUSCULAR HGB CONC 34.3 g/dL (32.0-36.0); MEAN CORPUSCULAR VOLUME 101.5 fL (79-99); MONOCYTES % (AUTO) 12.7 % (3.0-13.0); NEUTROPHILS % (AUTO) 67.6 % (40.0-77.0); PLATELET COUNT (AUTO) 91 K/uL (130-400); RED BLOOD CELL COUNT(AUTO) 3.33 MIL/uL (4.50-6.20); RED CELL DISTRIBUTION WIDTH 14.6 % (11.0-15.5)
[2020-05-07 19:08] LABS: POTASSIUM 3.7 mmol/L (3.5-5.1)
[2020-05-07 19:18] LABS: ALBUMIN 1.9 g/dL (3.5-5.0); BILIRUBIN,TOTAL 9.7 mg/dL (0.2-1.0); CRP QUANTITATIVE 17.3 mg/L (0.00-9.0); TOTAL PROTEIN, SERUM 8.6 g/dL (6.0-8.3)
[2020-05-07 19:29] LABS: PROTHROMBIN TIME 20.5 SEC (9.6-11.6)
[2020-05-07 19:30] LABS: PARTIAL THROMBOPLASTIN TIME 47.9 SEC (26.3-35.5)
[2020-05-07] MEDS ORDERED: IOHEXOL-350 75 ML VIAL IV ONE (19:34)
[2020-05-07] MEDS ORDERED: ONDANSETRON 4MG INJ IV PRN (20:15)
[2020-05-07] MEDS ORDERED: DIPHENHYDRAMINE HCL 25 MG CAPSULE PO PRN (20:15)
[2020-05-07] MEDS ORDERED: GUAIFENESIN-DM 200/20 MG 10 ML PO PRN (20:15)
[2020-05-07] MEDS ORDERED: MAG/ALUM/SIMETH 30 ML UDCUP PO PRN (20:15)
[2020-05-07] MEDS ORDERED: LACTATED RINGERS 1000ML 1,000 ML IV SCH (20:15)
[2020-05-07] MEDS ORDERED: ACETAMINOPHEN 325 MG TAB PO PRN ×2 (20:15)
[2020-05-07] MEDS ORDERED: DiphenhydrAMINE HCL 50 MG/ML VIAL IV PRN (20:15)
[2020-05-07] MEDS ORDERED: NITROGLYCERIN 0.4 MG SL TAB SL PRN (20:15)
[2020-05-07] MEDS ORDERED: LACTULOSE 20 GM/30 ML UDCUP PO SCH (20:15)
[2020-05-08] MEDS ORDERED: LACTULOSE 20 GM/30 ML UDCUP ONE ×2 (00:26→11:25)
[2020-05-08 08:23] LABS: BASOPHILS % (AUTO) 0.8 % (0.0-5.0); EOSINOPHILS % (AUTO) 2.1 % (0.0-8.0); HEMATOCRIT 28.3 % (42-54); LYMPHOCYTES % (AUTO) 25.6 % (21.0-51.0); MEAN CORPUSCULAR HEMOGLOBIN 34.5 pg (27.0-33.0); MEAN CORPUSCULAR HGB CONC 34.3 g/dL (32.0-36.0); MEAN CORPUSCULAR VOLUME 100.7 fL (79-99); MONOCYTES % (AUTO) 11.7 % (3.0-13.0); NEUTROPHILS % (AUTO) 59.2 % (40.0-77.0); PLATELET COUNT (AUTO) 72 K/uL (130-400); RED BLOOD CELL COUNT(AUTO) 2.81 MIL/uL (4.50-6.20); RED CELL DISTRIBUTION WIDTH 14.3 % (11.0-15.5); WHITE BLOOD COUNT (AUTO) 5.3 K/uL (4.8-10.8)
[2020-05-08 08:33] LABS: INR 2.39 (0.85-1.15); PROTHROMBIN TIME 24.1 SEC (9.6-11.6)
[2020-05-08 08:34] LABS: PARTIAL THROMBOPLASTIN TIME 63.4 SEC (26.3-35.5)
[2020-05-08 08:35] LABS: ALBUMIN 1.5 g/dL (3.5-5.0); BILIRUBIN,TOTAL 7.3 mg/dL (0.2-1.0); CREATININE 0.7 mg/dL (0.5-1.5); POTASSIUM 3.6 mmol/L (3.5-5.1); TOTAL PROTEIN, SERUM 7.1 g/dL (6.0-8.3)
[2020-05-08] MEDS ORDERED: RIFAXIMIN 200 MG TABLET PO SCH (09:00)
[2020-05-08] MEDS ORDERED: ENOXAPARIN SODIUM 30 MG/0.3 ML SQ SCH (09:00)
[2020-05-08] MEDS: FAMOTIDINE 20MG VIAL IV SCH ×2 (09:00→20:36)
[2020-05-08] MEDS: CEFTRIAXONE 1G VIAL IVP SCH (09:00)
[2020-05-08] MEDS ORDERED: ENOXAPARIN SODIUM 30 MG/0.3 ML SQ ONE (10:20)
[2020-05-08] MEDS ORDERED: CEFTRIAXONE 1G VIAL ONE (10:21)
[2020-05-08] MEDS ORDERED: FAMOTIDINE 20MG VIAL IV ONE (10:21)
[2020-05-08] MEDS ORDERED: PHARMACY COMMUNICATION MISC SCH (10:45)
[2020-05-08] MEDS ORDERED: LACTULOSE 20 GM/30 ML UDCUP PR SCH (11:00)
[2020-05-08 12:03] LABS: ABG BASE EXCESS -5.1 mmol/L (-2.0-3.0); ABG HCO3 18.6 mmol/L (21.0-28.0); ABG PCO2 30 mmHg (35-48)
[2020-05-08] MEDS: LACTULOSE 20 GM/30 ML UDCUP PO SCH ×2 (15:00→20:35)
[2020-05-08 18:25] VITALS: BP 135/86
[2020-05-08 19:46] VITALS: BP 134/89
[2020-05-08] MEDS: RIFAXIMIN 550 MG TABLET PO SCH (20:36)
[2020-05-08 23:55] VITALS: BP 140/80
[2020-05-09] MEDS: LACTULOSE 20 GM/30 ML UDCUP PO SCH ×3 (03:33→13:50)
[2020-05-09 03:53] VITALS: BP 143/83
[2020-05-09 06:00] LABS: BASOPHILS % (AUTO) 0.6 % (0.0-5.0); EOSINOPHILS % (AUTO) 2.5 % (0.0-8.0); HEMATOCRIT 33.8 % (42-54); LYMPHOCYTES % (AUTO) 28.9 % (21.0-51.0); MEAN CORPUSCULAR HEMOGLOBIN 34.6 pg (27.0-33.0); MEAN CORPUSCULAR HGB CONC 33.1 g/dL (32.0-36.0); MEAN CORPUSCULAR VOLUME 104.3 fL (79-99); MONOCYTES % (AUTO) 11.9 % (3.0-13.0); NEUTROPHILS % (AUTO) 55.5 % (40.0-77.0); PLATELET COUNT (AUTO) 59 K/uL (130-400); RED BLOOD CELL COUNT(AUTO) 3.24 MIL/uL (4.50-6.20); RED CELL DISTRIBUTION WIDTH 14.9 % (11.0-15.5); WHITE BLOOD COUNT (AUTO) 6.8 K/uL (4.8-10.8)
[2020-05-09 06:01] LABS: ALBUMIN 1.5 g/dL (3.5-5.0); BILIRUBIN,TOTAL 7.8 mg/dL (0.2-1.0); CREATININE 0.9 mg/dL (0.5-1.5); POTASSIUM 3.1 mmol/L (3.5-5.1); TOTAL PROTEIN, SERUM 7.3 g/dL (6.0-8.3)
[2020-05-09 08:00] VITALS: BP 147/88
[2020-05-09] MEDS: FAMOTIDINE 20MG VIAL IV SCH (09:11)
[2020-05-09] MEDS: CEFTRIAXONE 1G VIAL IVP SCH (09:11)
[2020-05-09] MEDS: RIFAXIMIN 550 MG TABLET PO SCH (09:12)
[2020-05-09 11:48] VITALS: BP 132/74
[2020-05-24] MEDS ORDERED: Folic Acid PO (09:50)
[2020-05-24] MEDS ORDERED: MIDO5TAB4 PO (09:50)
[2020-05-24] MEDS ORDERED: folate PO (09:50)
== END 2020-05-09 14:50 | disposition home or self-care (01) | DRG 69 ==
LOC: EDH 18:33 → EDHIP 20:14 → 3BH 05-08 18:08
PROVIDERS: ADMIT Family Medicine; ATTEND Family Medicine
DX: G45.9 Transient cerebral ischemic attack, unspecified (principal); D68.59 Other primary thrombophilia; E87.1 Hypo-osmolality and hyponatremia; K72.90 Hepatic failure, unspecified without coma; K74.60 Unspecified cirrhosis of liver; D53.1 Other megaloblastic anemias, not elsewhere classified; Z20.822 Contact with and (suspected) exposure to COVID-19
CPT/HCPCS: 36415; 36600; 70450; 70496; 70498; 70551; 71045; 80053; 82140; 82435; 82550; 82803; 82947; 82948; 83605; 83880; 84132; 84145; 84295; 84484; 85018; 85025; 85610; 85730; 86140; 87040; 87426; 87804; 93005; 99291; G0378; J0696; J1650; J3490; Q0163; Q9967

== ENCOUNTER → 2020-05-23 | Outpatient (CLI) | payer OTHER ==
[~2020-05-23] MED LIST changes: -CYCL5TAB PO; -FOLI1 PO; -FURO40TA5 PO; +Folic Acid PO; -LACT PO; -MAGN400T56 PO; +MAGN400T8 PO; +MIDO5TAB4 PO; -Midodrine Hcl PO; -PANT40TA PO; -POTA-10 PO; -SPIR50TA5 PO; +folate PO
[2020-05-23 10:16] LABS: BASOPHILS % (AUTO) 0.5 % (0.0-5.0); EOSINOPHILS % (AUTO) 2.2 % (0.0-8.0); HEMATOCRIT 31.9 % (42-54); LYMPHOCYTES % (AUTO) 18.8 % (21.0-51.0); MEAN CORPUSCULAR HEMOGLOBIN 34.1 pg (27.0-33.0); MEAN CORPUSCULAR HGB CONC 34.2 g/dL (32.0-36.0); MEAN CORPUSCULAR VOLUME 99.7 fL (79-99); MONOCYTES % (AUTO) 7.9 % (3.0-13.0); PLATELET COUNT (AUTO) 109 K/uL (130-400); WHITE BLOOD COUNT (AUTO) 9.3 K/uL (4.8-10.8)
[2020-05-23 10:29] LABS: ALBUMIN 1.5 g/dL (3.5-5.0); BILIRUBIN,TOTAL 10.5 mg/dL (0.2-1.0); CREATININE 1.1 mg/dL (0.5-1.5); INR 2.27 (0.85-1.15); POTASSIUM 4.5 mmol/L (3.5-5.1); TOTAL PROTEIN, SERUM 8.4 g/dL (6.0-8.3)
== END | disposition home or self-care (01) ==
LOC: LAB 08:56
PROVIDERS: ATTEND Internal Medicine Gastroenterology
DX: K70.31 Alcoholic cirrhosis of liver with ascites (principal)
CPT/HCPCS: 36415; 80053; 82105; 85025; 85610

== ENCOUNTER 2020-05-24 05:58 | Day surgery (SDC) | payer OTHER ==
[~2020-05-24] VITALS: Ht 182.9 cm; Wt 80.3 kg
[~2020-05-24 05:58] MED LIST changes: -Folic Acid PO; -MIDO5TAB4 PO; -folate PO
[2020-05-24] MEDS ORDERED: SODIUM CHLORIDE 0.9% 1000ML 1,000 ML IV ONE (06:19)
[2020-05-24 08:20] VITALS: BP 120/67
[2020-05-24] MEDS ORDERED: Folic Acid PO ×2 (09:50)
[2020-05-24] MEDS ORDERED: folate PO ×2 (09:50)
[2020-05-24] MEDS ORDERED: MIDO5TAB4 PO ×2 (09:50)
[2020-05-24] MEDS ORDERED: PROPOFOL 10 MG/ML 20ML VIAL IV ONE (11:21)
[2020-05-24 11:45] VITALS: BP 102/41
[2020-05-24 11:50] VITALS: BP 103/45
[2020-05-24 11:55] VITALS: BP 103/50
[2020-05-24 12:00] VITALS: BP 103/50
[2020-05-24 12:15] VITALS: BP 124/70
== END 2020-05-24 12:30 | disposition home or self-care (01) ==
LOC: ENDO 05:58 → DAH 05:58 → ENDO 12:30
PROVIDERS: ATTEND Internal Medicine Gastroenterology
DX: K92.1 Melena (principal); Z20.822 Contact with and (suspected) exposure to COVID-19; D64.9 Anemia, unspecified; K70.31 Alcoholic cirrhosis of liver with ascites; K72.90 Hepatic failure, unspecified without coma; K21.00 Gastro-esophageal reflux disease with esophagitis, without bleeding; I10 Essential (primary) hypertension; F41.9 Anxiety disorder, unspecified; F32.9 Major depressive disorder, single episode, unspecified; Z79.899 Other long term (current) drug therapy; Z98.890 Other specified postprocedural states
CPT/HCPCS: 36415; 36430; 45378; 86850; 86900; 86901; 86927 ×2; A4215; A4221; A4222; A4223; A4606; A4620; A4663; C9803; J2704; J7030; P9017 ×2; U0003

== ENCOUNTER 2020-05-29 22:36 | Inpatient (IN) | payer OTHER ==
[~2020-05-29] VITALS: Ht 172.7 cm; Wt 72.1 kg
[~2020-05-29 22:36] MED LIST changes: -FERATE PO; +Folic Acid PO; -LACT10SO76 PO; +MAGN400T56 PO; -MAGN400T8 PO; +MIDO5TAB4 PO; -ONDA8TAB12 PO; -RIFA550T PO; +folate PO
[2020-05-29 23:07] LABS: BASOPHILS % (AUTO) 0.7 % (0.0-5.0); EOSINOPHILS % (AUTO) 1.9 % (0.0-8.0); HEMATOCRIT 30.2 % (42-54); LYMPHOCYTES % (AUTO) 22.3 % (21.0-51.0); MEAN CORPUSCULAR HEMOGLOBIN 34.7 pg (27.0-33.0); MEAN CORPUSCULAR HGB CONC 35.4 g/dL (32.0-36.0); MEAN CORPUSCULAR VOLUME 98.1 fL (79-99); NEUTROPHILS % (AUTO) 62.3 % (40.0-77.0); PLATELET COUNT (AUTO) 121 K/uL (130-400); RED BLOOD CELL COUNT(AUTO) 3.08 MIL/uL (4.50-6.20); WHITE BLOOD COUNT (AUTO) 9.8 K/uL (4.8-10.8)
[2020-05-29] MEDS ORDERED: METOCLOPRAMIDE 10 MG/2 ML VIAL ONE (23:18)
[2020-05-29] MEDS ORDERED: FAMOTIDINE 20MG VIAL IV ONE (23:18)
[2020-05-29] MEDS ORDERED: ONDANSETRON 4MG INJ ONE (23:18)
[2020-05-29] MEDS ORDERED: PANTOPRAZOLE 40 MG/VIAL ONE ×2 (23:18→23:19)
[2020-05-29] MEDS ORDERED: 0.9%NACL 1000ML 1,000 ML IV ONE (23:20)
[2020-05-29] MEDS ORDERED: 0.9%NACL 100ML 100 ML IV ONE (23:20)
[2020-05-29 23:24] LABS: CARBON DIOXIDE 24 mmol/L (21-32); CHLORIDE 97 mmol/L (101-111); CREATININE 1.2 mg/dL (0.5-1.5); GLOMERULAR FILTR. RATE CALC 68 mL/min (>60); GLUCOSE,RANDOM 96 mg/dL (70-105); POTASSIUM 4.5 mmol/L (3.5-5.1); SODIUM SERUM 129 mmol/L (136-145); UREA NITROGEN, BLOOD 14 mg/dL (7-18)
[2020-05-29 23:28] LABS: ALANINE AMINOTRANSFERASE 68 U/L (12-78); ALBUMIN 1.6 g/dL (3.5-5.0); ALCOHOL, BLOOD < 3 mg/dL (0-10); ASPARTATE AMINOTRANSFERASE 114 U/L (10-37); BILIRUBIN,TOTAL 9.9 mg/dL (0.2-1.0); LIPASE 107 U/L (114-286); TOTAL PROTEIN, SERUM 8.2 g/dL (6.0-8.3)
[2020-05-29 23:34] LABS: AMMONIA 230 umol/L (11-32)
[2020-05-30 00:05] LABS: INR 2.22 (0.85-1.15); PROTHROMBIN TIME 22.5 SEC (9.6-11.6)
[2020-05-30 00:06] LABS: PARTIAL THROMBOPLASTIN TIME 56.3 SEC (26.3-35.5)
[2020-05-30] MEDS ORDERED: LACTULOSE 20 GM/30 ML UDCUP ONE ×5 (01:15→16:19)
[2020-05-30] MEDS ORDERED: GUAIFENESIN-DM 200/20 MG 10 ML PO PRN (03:30)
[2020-05-30] MEDS ORDERED: ACETAMINOPHEN 325 MG TAB PO PRN ×2 (03:30)
[2020-05-30] MEDS: LACTATED RINGERS 1000ML 1,000 ML IV SCH ×2 (03:30→16:50)
[2020-05-30] MEDS ORDERED: ONDANSETRON 4MG INJ IV PRN (03:30)
[2020-05-30] MEDS ORDERED: MAG/ALUM/SIMETH 30 ML UDCUP PO PRN (03:30)
[2020-05-30] MEDS ORDERED: DIPHENHYDRAMINE HCL 25 MG CAPSULE PO PRN (03:30)
[2020-05-30] MEDS ORDERED: LACTULOSE 20 GM/30 ML UDCUP PO PRN (03:30)
[2020-05-30] MEDS ORDERED: NITROGLYCERIN 0.4 MG SL TAB SL PRN (03:30)
[2020-05-30] MEDS ORDERED: LACTULOSE 20 GM/30 ML UDCUP PO SCH (03:30)
[2020-05-30 03:37] LABS: POTASSIUM 5.3 mmol/L (3.5-5.1)
[2020-05-30 03:41] LABS: ALBUMIN 1.3 g/dL (3.5-5.0); BILIRUBIN,TOTAL 8.7 mg/dL (0.2-1.0); TOTAL PROTEIN, SERUM 7.3 g/dL (6.0-8.3)
[2020-05-30 04:34] LABS: HEMATOCRIT 27.9 % (42-54); MEAN CORPUSCULAR HEMOGLOBIN 34.1 pg (27.0-33.0); MEAN CORPUSCULAR HGB CONC 34.1 g/dL (32.0-36.0); RED BLOOD CELL COUNT(AUTO) 2.79 MIL/uL (4.50-6.20); RED CELL DISTRIBUTION WIDTH 15.4 % (11.0-15.5); WHITE BLOOD COUNT (AUTO) 9.7 K/uL (4.8-10.8)
[2020-05-30 05:21] LABS: APPEARANCE,URINE Clear (CLEAR); BILIRUBIN,URINE Moderate (NEGATIVE); COLOR,URINE Dark Yellow (YELLOW); GLUCOSE, URINE (UA) Negative (NEGATIVE); KETONES,URINE Negative (NEGATIVE); LEUKOCYTE ESTERASE ,URINE Negative (NEGATIVE); NITRATE,URINE Negative (NEGATIVE); OCCULT BLOOD,URINE Negative (NEGATIVE); PH,URINE 7.5 (5.0-8.0); PROTEIN,URINE Negative (NEGATIVE)
[2020-05-30 05:28] LABS: AMPHET/METH SCREEN,URINE NEGATIVE (NEGATIVE); BARBITURATE SCREEN, URINE NEGATIVE (NEGATIVE); BENZODIAZEPINES SCREEN,URINE NEGATIVE (NEGATIVE); CANNABINOID SCREEN,URINE NEGATIVE (NEGATIVE); COCAINE SCREEN,URINE NEGATIVE (NEGATIVE); OPIATE SCREEN,URINE NEGATIVE (NEGATIVE); PHENCYCLIDINE SCREEN,URINE NEGATIVE (NEGATIVE)
[2020-05-30 05:36] LABS: BACTERIA,URINE Few /HPF (None Seen); RBC,URINE 0-1 /HPF (0-1); WBC,URINE 0-1 /HPF (0-1)
[2020-05-30] MEDS ORDERED: LACTATED RINGERS 1000ML 1,000 ML IV ONE (07:42)
[2020-05-30 09:28] LABS: HEMATOCRIT 29.4 % (42-54)
[2020-05-30] MEDS ORDERED: MIDODRINE HCL 5 MG TABLET ONE (12:36)
[2020-05-30 13:10] LABS: HEMATOCRIT 29.2 % (42-54)
[2020-05-30] MEDS: MIDODRINE HCL 5 MG TABLET NG SCH ×2 (14:00→22:29)
[2020-05-30] MEDS: LACTULOSE 20 GM/30 ML UDCUP PR SCH (16:00)
[2020-05-30 17:20] LABS: HEMATOCRIT 31.8 % (42-54)
[2020-05-30] MEDS ORDERED: CEFTRIAXONE 1G VIAL ONE (17:27)
[2020-05-30] MEDS ORDERED: 0.9%NACL 50ML 50 ML IV ONE (17:28)
[2020-05-30] MEDS: CEFTRIAXONE 1G VIAL IVP SCH (18:00)
[2020-05-30 19:15] VITALS: BP 125/44
[2020-05-30 19:38] VITALS: BP 146/82
[2020-05-30 21:39] VITALS: BP 154/91
[2020-05-30 22:00] VITALS: BP 154/91
[2020-05-30] MEDS: LORAZEPAM 2 MG/ML 1 ML VIAL IVP PRN (22:30)
[2020-05-30] MEDS: RIFAXIMIN 550 MG TABLET NG SCH (22:30)
[2020-05-31] VITALS (22 sets, daily range): BP systolic 111–178; BP diastolic 54–111
[2020-05-31 03:42] LABS: BASOPHILS % (AUTO) 0.5 % (0.0-5.0); EOSINOPHILS % (AUTO) 1.4 % (0.0-8.0); LYMPHOCYTES % (AUTO) 16.1 % (21.0-51.0); MEAN CORPUSCULAR HEMOGLOBIN 34.6 pg (27.0-33.0); MEAN CORPUSCULAR HGB CONC 34.5 g/dL (32.0-36.0); MEAN CORPUSCULAR VOLUME 100.3 fL (79-99); MONOCYTES % (AUTO) 11.4 % (3.0-13.0); PLATELET COUNT (AUTO) 141 K/uL (130-400); RED BLOOD CELL COUNT(AUTO) 3.09 MIL/uL (4.50-6.20); RED CELL DISTRIBUTION WIDTH 15.1 % (11.0-15.5); WHITE BLOOD COUNT (AUTO) 11.4 K/uL (4.8-10.8)
[2020-05-31 03:55] LABS: ALBUMIN 1.5 g/dL (3.5-5.0); BILIRUBIN,TOTAL 12.5 mg/dL (0.2-1.0); CREATININE 1.1 mg/dL (0.5-1.5); POTASSIUM 4.8 mmol/L (3.5-5.1); TOTAL PROTEIN, SERUM 8.1 g/dL (6.0-8.3)
[2020-05-31] MEDS ORDERED: DEXTROSE 50%-WATER 50 ML DISP.SYRIN IV PRN (07:45)
[2020-05-31] MEDS ORDERED: GLUCAGON 1MG KIT 1 MG ML IM PRN (07:45)
[2020-05-31] MEDS ORDERED: DEXTROSE 50%-WATER 50 ML DISP.SYRIN IV ONE (07:47)
[2020-05-31] MEDS: LACTULOSE 20 GM/30 ML UDCUP PR SCH ×2 (08:41)
[2020-05-31] MEDS: RIFAXIMIN 550 MG TABLET NG SCH ×2 (08:42→20:50)
[2020-05-31] MEDS: MIDODRINE HCL 5 MG TABLET NG SCH ×3 (09:00→20:49)
[2020-05-31] MEDS: DEXTROSE 5%-LACTATED RINGERS 1,000 ML IV SCH (09:27)
[2020-05-31] MEDS ORDERED: LACTULOSE 20 GM/30 ML UDCUP PR SCH (17:00)
[2020-05-31] MEDS: CEFTRIAXONE 1G VIAL IVP SCH (17:27)
[2020-05-31] MEDS: DiphenhydrAMINE HCL 50 MG/ML VIAL IV PRN (19:40)
[2020-05-31] MEDS: LORAZEPAM 2 MG/ML 1 ML VIAL IVP PRN (19:40)
[2020-05-31] MEDS: LACTULOSE 20 GM/30 ML UDCUP NG SCH (21:54)
[2020-06-01] VITALS (23 sets, daily range): BP systolic 121–165; BP diastolic 48–122
[2020-06-01] MEDS: DEXTROSE 5%-LACTATED RINGERS 1,000 ML IV SCH ×2 (00:54→14:33)
[2020-06-01] MEDS: LACTULOSE 20 GM/30 ML UDCUP NG SCH ×4 (03:00→21:13)
[2020-06-01 04:26] LABS: BASOPHILS % (AUTO) 0.4 % (0.0-5.0); HEMATOCRIT 27.7 % (42-54); LYMPHOCYTES % (AUTO) 18.3 % (21.0-51.0); MEAN CORPUSCULAR HGB CONC 34.7 g/dL (32.0-36.0); MEAN CORPUSCULAR VOLUME 98.2 fL (79-99); NEUTROPHILS % (AUTO) 66.6 % (40.0-77.0); PLATELET COUNT (AUTO) 127 K/uL (130-400); RED BLOOD CELL COUNT(AUTO) 2.82 MIL/uL (4.50-6.20); RED CELL DISTRIBUTION WIDTH 15.1 % (11.0-15.5); WHITE BLOOD COUNT (AUTO) 12.4 K/uL (4.8-10.8)
[2020-06-01 04:38] LABS: ALBUMIN 1.5 g/dL (3.5-5.0); BILIRUBIN,TOTAL 13.8 mg/dL (0.2-1.0); CREATININE 1.2 mg/dL (0.5-1.5); POTASSIUM 3.7 mmol/L (3.5-5.1); TOTAL PROTEIN, SERUM 7.8 g/dL (6.0-8.3)
[2020-06-01] MEDS: RIFAXIMIN 550 MG TABLET NG SCH ×2 (08:00→21:13)
[2020-06-01] MEDS: MIDODRINE HCL 5 MG TABLET NG SCH ×3 (08:00→21:13)
[2020-06-01] MEDS ORDERED: KCL 20 MEQ ERTAB PO SCH (10:15)
[2020-06-01 10:37] LABS: INR 2.4 (0.85-1.15); PROTHROMBIN TIME 24.2 SEC (9.6-11.6)
[2020-06-01 10:38] LABS: PARTIAL THROMBOPLASTIN TIME 62.1 SEC (26.3-35.5)
[2020-06-01] MEDS ORDERED: PHYTONADIONE 10 MG/1 ML AMP SQ SCH (16:00)
[2020-06-01] MEDS: CEFTRIAXONE 1G VIAL IVP SCH (16:48)
[2020-06-02] VITALS (23 sets, daily range): BP systolic 116–164; BP diastolic 67–107
[2020-06-02 03:45] LABS: BASOPHILS % (AUTO) 0.3 % (0.0-5.0); EOSINOPHILS % (AUTO) 1.8 % (0.0-8.0); HEMATOCRIT 25.2 % (42-54); LYMPHOCYTES % (AUTO) 17.1 % (21.0-51.0); MEAN CORPUSCULAR HEMOGLOBIN 34.7 pg (27.0-33.0); MEAN CORPUSCULAR HGB CONC 34.5 g/dL (32.0-36.0); MEAN CORPUSCULAR VOLUME 100.4 fL (79-99); MONOCYTES % (AUTO) 13.1 % (3.0-13.0); NEUTROPHILS % (AUTO) 67.2 % (40.0-77.0); PLATELET COUNT (AUTO) 98 K/uL (130-400); RED BLOOD CELL COUNT(AUTO) 2.51 MIL/uL (4.50-6.20); RED CELL DISTRIBUTION WIDTH 15.4 % (11.0-15.5); WHITE BLOOD COUNT (AUTO) 9.7 K/uL (4.8-10.8)
[2020-06-02] MEDS: LACTULOSE 20 GM/30 ML UDCUP NG SCH ×4 (04:22→21:02)
[2020-06-02 05:58] LABS: ALBUMIN 1.4 g/dL (3.5-5.0); BILIRUBIN,TOTAL 12.1 mg/dL (0.2-1.0); MAGNESIUM 1.6 mg/dL (1.80-2.40); POTASSIUM 3.8 mmol/L (3.5-5.1); TOTAL PROTEIN, SERUM 7.3 g/dL (6.0-8.3)
[2020-06-02] MEDS: DiphenhydrAMINE HCL 50 MG/ML VIAL IV PRN (06:30)
[2020-06-02] MEDS: LORAZEPAM 2 MG/ML 1 ML VIAL IVP PRN (06:30)
[2020-06-02] MEDS: DEXTROSE 5%-LACTATED RINGERS 1,000 ML IV SCH (06:36)
[2020-06-02] MEDS: MIDODRINE HCL 5 MG TABLET NG SCH ×4 (08:02→21:02)
[2020-06-02] MEDS: RIFAXIMIN 550 MG TABLET NG SCH ×2 (08:02→21:02)
[2020-06-02] MEDS ORDERED: KCL 20 MEQ ERTAB PO SCH (09:30)
[2020-06-02] MEDS ORDERED: MAGNESIUM 4GM PREMIX 100ML 100 ML IV PRN (09:30)
[2020-06-02] MEDS: LACTULOSE 20 GM/30 ML UDCUP PR SCH ×2 (10:05→12:00)
[2020-06-02] MEDS ORDERED: LACTULOSE 20 GM/30 ML UDCUP PR SCH (15:00)
[2020-06-03] VITALS (14 sets, daily range): BP systolic 125–173; BP diastolic 78–101
[2020-06-03] MEDS ORDERED: LABETALOL 20MG SYG IV ONE (00:47)
[2020-06-03] MEDS: LACTULOSE 20 GM/30 ML UDCUP NG SCH ×4 (02:06→21:46)
[2020-06-03 05:28] LABS: ALBUMIN 1.5 g/dL (3.5-5.0); BASOPHILS % (AUTO) 0.4 % (0.0-5.0); BILIRUBIN,TOTAL 12.6 mg/dL (0.2-1.0); CREATININE 1.2 mg/dL (0.5-1.5); HEMATOCRIT 29.4 % (42-54); LYMPHOCYTES % (AUTO) 13.3 % (21.0-51.0); MAGNESIUM 2.2 mg/dL (1.80-2.40); MEAN CORPUSCULAR HGB CONC 33.7 g/dL (32.0-36.0); MONOCYTES % (AUTO) 13.7 % (3.0-13.0); NEUTROPHILS % (AUTO) 71.1 % (40.0-77.0); NUCLEATED RED BLOOD CELLS 0.3 % (0.0-0.19); PLATELET COUNT (AUTO) 92 K/uL (130-400); POTASSIUM 3.5 mmol/L (3.5-5.1); RED BLOOD CELL COUNT(AUTO) 2.91 MIL/uL (4.50-6.20); RED CELL DISTRIBUTION WIDTH 15.5 % (11.0-15.5); TOTAL PROTEIN, SERUM 7.8 g/dL (6.0-8.3); WHITE BLOOD COUNT (AUTO) 11.4 K/uL (4.8-10.8)
[2020-06-03 06:16] LABS: INR 2.55 (0.85-1.15); PROTHROMBIN TIME 25.5 SEC (9.6-11.6)
[2020-06-03 06:17] LABS: PARTIAL THROMBOPLASTIN TIME 61.8 SEC (26.3-35.5)
[2020-06-03] MEDS: LABETALOL 20MG VIAL IV PRN ×2 (08:12→08:53)
[2020-06-03] MEDS: RIFAXIMIN 550 MG TABLET NG SCH ×2 (08:12→22:18)
[2020-06-03] MEDS: MIDODRINE HCL 5 MG TABLET NG SCH ×3 (08:13→21:46)
[2020-06-03] MEDS ORDERED: POTASSIUM CHLORIDE 10% ELIXIR 20 MEQ/15 ML UDCUP NG SCH (08:30)
[2020-06-03] MEDS ORDERED: POTASSIUM CHLORIDE 10% ELIXIR 20 MEQ/15 ML UDCUP ONE (08:42)
[2020-06-03] MEDS: DEXTROSE 5%-WATER 1,000 ML IV SCH (14:00)
[2020-06-03] MEDS ORDERED: FOLIC ACID 5 MG/ML VIAL IV SCH ×2 (15:15→19:00)
[2020-06-03] MEDS ORDERED: THIAMINE HCL 100 MG/ML 2ML VIAL IVP SCH (15:15)
[2020-06-04] VITALS (7 sets, daily range): BP systolic 131–179; BP diastolic 73–99
[2020-06-04] MEDS: LACTULOSE 20 GM/30 ML UDCUP NG SCH ×4 (03:18→20:10)
[2020-06-04 06:03] LABS: BASOPHILS % (AUTO) 0.4 % (0.0-5.0); EOSINOPHILS % (AUTO) 2.8 % (0.0-8.0); HEMATOCRIT 28.9 % (42-54); LYMPHOCYTES % (AUTO) 13.9 % (21.0-51.0); MEAN CORPUSCULAR HGB CONC 33.2 g/dL (32.0-36.0); MEAN CORPUSCULAR VOLUME 102.5 fL (79-99); MONOCYTES % (AUTO) 13.1 % (3.0-13.0); NUCLEATED RED BLOOD CELLS 0.4 % (0.0-0.19); PLATELET COUNT (AUTO) 83 K/uL (130-400); RED BLOOD CELL COUNT(AUTO) 2.82 MIL/uL (4.50-6.20); RED CELL DISTRIBUTION WIDTH 16.1 % (11.0-15.5); WHITE BLOOD COUNT (AUTO) 10.9 K/uL (4.8-10.8)
[2020-06-04 06:19] LABS: ALBUMIN 1.4 g/dL (3.5-5.0); BILIRUBIN,TOTAL 11.8 mg/dL (0.2-1.0); CREATININE 1.1 mg/dL (0.5-1.5); CRP QUANTITATIVE 19.7 mg/L (0.00-9.0); MAGNESIUM 1.9 mg/dL (1.80-2.40); POTASSIUM 3.7 mmol/L (3.5-5.1); TOTAL PROTEIN, SERUM 7.4 g/dL (6.0-8.3)
[2020-06-04] MEDS ORDERED: FOLIC ACID 5 MG/ML VIAL IV SCH (09:00)
[2020-06-04] MEDS: DEXTROSE 5%-WATER 1,000 ML IV SCH (10:38)
[2020-06-04] MEDS: THIAMINE HCL 100 MG/ML 2ML VIAL IVP SCH (10:40)
[2020-06-04] MEDS: RIFAXIMIN 550 MG TABLET NG SCH ×2 (10:40→20:10)
[2020-06-04] MEDS: FOLIC ACID 1 MG TABLET PO SCH (16:53)
[2020-06-04] MEDS ORDERED: PHARMACY COMMUNICATION MISC SCH (17:00)
[2020-06-05] MEDS: LACTULOSE 20 GM/30 ML UDCUP NG SCH ×4 (03:03→20:51)
[2020-06-05 03:58] VITALS: BP 123/71
[2020-06-05] MEDS: DEXTROSE 5%-WATER 1,000 ML IV SCH (05:01)
[2020-06-05 05:47] LABS: BASOPHILS % (AUTO) 0.5 % (0.0-5.0); EOSINOPHILS % (AUTO) 3.1 % (0.0-8.0); HEMATOCRIT 29.5 % (42-54); LYMPHOCYTES % (AUTO) 13.5 % (21.0-51.0); MEAN CORPUSCULAR HEMOGLOBIN 34.5 pg (27.0-33.0); MEAN CORPUSCULAR HGB CONC 33.2 g/dL (32.0-36.0); MEAN CORPUSCULAR VOLUME 103.9 fL (79-99); MONOCYTES % (AUTO) 11.5 % (3.0-13.0); NEUTROPHILS % (AUTO) 70.6 % (40.0-77.0); NUCLEATED RED BLOOD CELLS 0.6 % (0.0-0.19); PLATELET COUNT (AUTO) 75 K/uL (130-400); RED BLOOD CELL COUNT(AUTO) 2.84 MIL/uL (4.50-6.20); RED CELL DISTRIBUTION WIDTH 16.5 % (11.0-15.5)
[2020-06-05 06:09] LABS: CREATININE 0.9 mg/dL (0.5-1.5)
[2020-06-05 08:00] VITALS: BP 140/85
[2020-06-05] MEDS: FOLIC ACID 1 MG TABLET PO SCH (09:19)
[2020-06-05] MEDS: RIFAXIMIN 550 MG TABLET NG SCH ×2 (09:19→20:51)
[2020-06-05] MEDS: THIAMINE HCL 100 MG/ML 2ML VIAL IVP SCH (09:19)
[2020-06-05 12:00] VITALS: BP 128/78
[2020-06-05 16:00] VITALS: BP 131/76
[2020-06-05 19:39] VITALS: BP 137/84
[2020-06-06] VITALS: BP 113/68
[2020-06-06] MEDS: DEXTROSE 5%-WATER 1,000 ML IV SCH (02:00)
[2020-06-06] MEDS: LACTULOSE 20 GM/30 ML UDCUP NG SCH ×4 (02:39→20:54)
[2020-06-06 04:12] VITALS: BP 128/74
[2020-06-06 07:45] LABS: BASOPHILS % (AUTO) 0.4 % (0.0-5.0); EOSINOPHILS % (AUTO) 2.2 % (0.0-8.0); HEMATOCRIT 32.3 % (42-54); LYMPHOCYTES % (AUTO) 15.5 % (21.0-51.0); MEAN CORPUSCULAR HEMOGLOBIN 34.4 pg (27.0-33.0); MEAN CORPUSCULAR HGB CONC 32.2 g/dL (32.0-36.0); MONOCYTES % (AUTO) 12.7 % (3.0-13.0); NEUTROPHILS % (AUTO) 68.4 % (40.0-77.0); NUCLEATED RED BLOOD CELLS 0.5 % (0.0-0.19); PLATELET COUNT (AUTO) 55 K/uL (130-400); RED BLOOD CELL COUNT(AUTO) 3.02 MIL/uL (4.50-6.20); RED CELL DISTRIBUTION WIDTH 18.2 % (11.0-15.5); WHITE BLOOD COUNT (AUTO) 11.3 K/uL (4.8-10.8)
[2020-06-06 07:59] LABS: ALBUMIN 1.3 g/dL (3.5-5.0); BILIRUBIN,TOTAL 12.9 mg/dL (0.2-1.0); CREATININE 1.1 mg/dL (0.5-1.5); POTASSIUM 4.4 mmol/L (3.5-5.1); TOTAL PROTEIN, SERUM 7.6 g/dL (6.0-8.3)
[2020-06-06 08:00] VITALS: BP 140/85
[2020-06-06] MEDS: THIAMINE HCL 100 MG/ML 2ML VIAL IVP SCH (08:56)
[2020-06-06] MEDS: FOLIC ACID 1 MG TABLET PO SCH (08:56)
[2020-06-06] MEDS: RIFAXIMIN 550 MG TABLET NG SCH ×2 (08:56→20:54)
[2020-06-06 12:00] VITALS: BP 119/53
[2020-06-06 20:00] VITALS: BP 120/65
[2020-06-07] VITALS (22 sets, daily range): BP systolic 45–134; BP diastolic 23–74
[2020-06-07] MEDS: LACTULOSE 20 GM/30 ML UDCUP NG SCH ×4 (01:56→21:00)
[2020-06-07 05:26] LABS: HEMATOCRIT 27.4 % (42-54); MEAN CORPUSCULAR HEMOGLOBIN 33.7 pg (27.0-33.0); MEAN CORPUSCULAR VOLUME 108.7 fL (79-99); NUCLEATED RED BLOOD CELLS 1.1 % (0.0-0.19); RED BLOOD CELL COUNT(AUTO) 2.52 MIL/uL (4.50-6.20); RED CELL DISTRIBUTION WIDTH 18.7 % (11.0-15.5)
[2020-06-07 05:39] LABS: ALBUMIN 1.1 g/dL (3.5-5.0); BILIRUBIN,TOTAL 11.2 mg/dL (0.2-1.0); CREATININE 1.7 mg/dL (0.5-1.5); POTASSIUM 4.9 mmol/L (3.5-5.1); TOTAL PROTEIN, SERUM 6.4 g/dL (6.0-8.3)
[2020-06-07] MEDS ORDERED: GADODIAMIDE 10 MMOL/20 ML VIAL IV ONE (07:58)
[2020-06-07 08:03] LABS: INR 3.27 (0.85-1.15); PROTHROMBIN TIME 31.5 SEC (9.6-11.6)
[2020-06-07] MEDS: RIFAXIMIN 550 MG TABLET NG SCH ×3 (09:00→21:00)
[2020-06-07] MEDS: FOLIC ACID 1 MG TABLET PO SCH ×2 (09:00→11:28)
[2020-06-07] MEDS ORDERED: DiphenhydrAMINE HCL 50 MG/ML VIAL IV SCH (11:15)
[2020-06-07] MEDS: THIAMINE HCL 100 MG/ML 2ML VIAL IVP SCH (11:29)
[2020-06-07] MEDS: DEXTROSE 5%-WATER 1,000 ML IV SCH ×2 (11:32→21:00)
[2020-06-07] MEDS ORDERED: ETOMIDATE 20MG VIAL IVP ONE (12:00)
[2020-06-07] MEDS ORDERED: ROCURONIUM BROMIDE 10MG/1ML 5ML VL IV ONE (12:00)
[2020-06-07 12:30] LABS: ABG BASE EXCESS -5.7 mmol/L (-2.0-3.0); ABG HCO3 19.3 mmol/L (21.0-28.0); ABG OXYGEN SATURATION 99.6 % (95.0-99.0); ABG PCO2 36 mmHg (35-48)
[2020-06-07] MEDS ORDERED: OCTREOTIDE ACETATE 1,250 MCG in 0.9% NACL 250ML 250 ML IV SCH (12:30)
[2020-06-07] MEDS ORDERED: LACTATED RINGERS 1000ML 1,000 ML IV ONE (12:30)
[2020-06-07] MEDS ORDERED: PROPOFOL 1000 MG/100 ML 100 ML IV SCH (12:45)
[2020-06-07] MEDS ORDERED: NOREPINEPHRIN 4MG/NS 250ML 250 ML IV ONE ×2 (12:59→19:36)
[2020-06-07] MEDS ORDERED: ZOSYN 3.375GM+NS 50ML 50 ML IV SCH (13:00)
[2020-06-07 13:06] LABS: MEAN CORPUSCULAR HEMOGLOBIN 34.7 pg (27.0-33.0); MEAN CORPUSCULAR HGB CONC 30.9 g/dL (32.0-36.0); MEAN CORPUSCULAR VOLUME 112.6 fL (79-99); NUCLEATED RED BLOOD CELLS 2.5 % (0.0-0.19); PLATELET COUNT (AUTO) 66 K/uL (130-400); RED BLOOD CELL COUNT(AUTO) 1.67 MIL/uL (4.50-6.20)
[2020-06-07] MEDS ORDERED: VASOPRESSIN 20 UNITS in 0.9%NACL 100ML 100 ML IV SCH (13:15)
[2020-06-07 13:18] LABS: CREATININE 2.5 mg/dL (0.5-1.5); POTASSIUM 4.5 mmol/L (3.5-5.1)
[2020-06-07 13:29] LABS: HEMATOCRIT 18.8 % (42-54)
[2020-06-07] MEDS ORDERED: PANTOPRAZOLE 40 MG/VIAL IVP SCH (13:40)
[2020-06-07] MEDS ORDERED: PHYTONADIONE 10 MG/1 ML AMP IM SCH (13:40)
[2020-06-07 13:58] LABS: BASOPHILS % (AUTO) 0.2 % (0.0-5.0); EOSINOPHILS % (AUTO) 2.3 % (0.0-8.0); MEAN CORPUSCULAR HEMOGLOBIN 35.1 pg (27.0-33.0); MEAN CORPUSCULAR HGB CONC 31.3 g/dL (32.0-36.0); MEAN CORPUSCULAR VOLUME 112.2 fL (79-99); MONOCYTES % (AUTO) 11.8 % (3.0-13.0); NEUTROPHILS % (AUTO) 56.8 % (40.0-77.0); NUCLEATED RED BLOOD CELLS 2.6 % (0.0-0.19); PLATELET COUNT (AUTO) 82 K/uL (130-400); RED BLOOD CELL COUNT(AUTO) 2.05 MIL/uL (4.50-6.20); RED CELL DISTRIBUTION WIDTH 21.1 % (11.0-15.5); WHITE BLOOD COUNT (AUTO) 11.9 K/uL (4.8-10.8)
[2020-06-07] MEDS ORDERED: PANTOPRAZOLE 40MG INJ 80 MG in 0.9%NACL 100ML 100 ML IVP SCH (14:00)
[2020-06-07] MEDS ORDERED: MIDAZOLAM 100MG-0.9% NS 100ML 100 ML IV ONE (14:02)
[2020-06-07 14:30] LABS: LYMPHOCYTES % (MANUAL) 16 % (22-44); MAN.DIFF COMMENT-IMPRESSION MANUAL DIFFERENTIAL; MONOCYTES % (MANUAL) 1 % (2-9); SEGMENTED NEUTROPHILS % 83 % (40-70)
[2020-06-07 14:31] LABS: PLATELET MORPHOLOGY COMMENT DECREASED
[2020-06-07] MEDS: NOREPINEPHRIN 4MG/NS 250ML 250 ML IV SCH ×2 (16:06→17:37)
[2020-06-07] MEDS ORDERED: 0.9% NACL 250ML 250 ML IV ONE (16:17)
[2020-06-07] MEDS ORDERED: RENAL DOSE IV SCH (17:45)
[2020-06-07] MEDS ORDERED: MEROPENEM 1 GM VIAL IVP SCH ×2 (17:45)
[2020-06-07] MEDS ORDERED: PHARMACY COMMUNICATION MISC SCH ×2 (17:45→20:00)
[2020-06-07] MEDS ORDERED: PHENYLEPHRINE HCL 50 MG in 0.9% NACL 250ML 250 ML IV PRN (17:45)
[2020-06-07] MEDS ORDERED: ALBUMIN (HUMAN) 25% 100 ML IV SCH (18:00)
[2020-06-07 18:45] LABS: BASOPHILS % (AUTO) 0.4 % (0.0-5.0); EOSINOPHILS % (AUTO) 0.9 % (0.0-8.0); HEMATOCRIT 25.7 % (42-54); LYMPHOCYTES % (AUTO) 18.3 % (21.0-51.0); MEAN CORPUSCULAR HEMOGLOBIN 33.6 pg (27.0-33.0); MEAN CORPUSCULAR HGB CONC 31.9 g/dL (32.0-36.0); MEAN CORPUSCULAR VOLUME 105.3 fL (79-99); MONOCYTES % (AUTO) 6.6 % (3.0-13.0); NEUTROPHILS % (AUTO) 69.7 % (40.0-77.0); PLATELET COUNT (AUTO) 65 K/uL (130-400); RED BLOOD CELL COUNT(AUTO) 2.44 MIL/uL (4.50-6.20); RED CELL DISTRIBUTION WIDTH 20.5 % (11.0-15.5); WHITE BLOOD COUNT (AUTO) 9.5 K/uL (4.8-10.8)
[2020-06-07] MEDS ORDERED: PHENYLEPHRINE HCL 100 MG in 0.9% NACL 250ML 250 ML IV PRN (19:00)
[2020-06-07] MEDS ORDERED: 0.9% NACL 500ML IV.SOLN 500 ML IV SCH (19:15)
[2020-06-07] MEDS ORDERED: NOREPINEPHRINE BITARTRATE 32 MG in 0.9% NACL 250ML 250 ML IV SCH (19:30)
[2020-06-07] MEDS ORDERED: LINEZOLID 600 MG/ISO-OSM 300 ML IV SCH (20:00)
[2020-06-08 00:26] LABS: BASOPHILS % (AUTO) 0.4 % (0.0-5.0); HEMATOCRIT 34.4 % (42-54); LYMPHOCYTES % (AUTO) 21.1 % (21.0-51.0); MEAN CORPUSCULAR HGB CONC 29.4 g/dL (32.0-36.0); MEAN CORPUSCULAR VOLUME 115.8 fL (79-99); MONOCYTES % (AUTO) 9.3 % (3.0-13.0); NEUTROPHILS % (AUTO) 62.7 % (40.0-77.0); NUCLEATED RED BLOOD CELLS 10.9 % (0.0-0.19); PLATELET COUNT (AUTO) 53 K/uL (130-400); RED BLOOD CELL COUNT(AUTO) 2.97 MIL/uL (4.50-6.20); RED CELL DISTRIBUTION WIDTH 24.3 % (11.0-15.5); WHITE BLOOD COUNT (AUTO) 17.3 K/uL (4.8-10.8)
[2020-06-08 01:15] LABS: BAND NEUTROPHILS % (MANUAL) 20 % (0-2); LYMPHOCYTES % (MANUAL) 27 % (22-44); MAN.DIFF COMMENT-IMPRESSION MANUAL DIFFERENTIAL; MONOCYTES % (MANUAL) 7 % (2-9); PLATELET MORPHOLOGY COMMENT DECREASED; SEGMENTED NEUTROPHILS % 46 % (40-70)
[2020-06-08] MEDS ORDERED: Vitamin B Complex/Vit C/Folic Acid PO SCH (09:00)
== END 2020-06-08 00:56 | disposition expired | DRG 441 ==
LOC: EDH 22:36 → OBSVTOIN 05-30 03:17 → EDHIP 05-30 03:17 → 2DH 05-30 19:07 → 4BH 06-03 11:43 → 3AH 06-04 18:55 → 2DH 06-07 12:25
PROVIDERS: ADMIT Family Medicine; ATTEND Family Medicine
PROC: 30233K1 Transfusion of Nonautologous Frozen Plasma into Peripheral Vein, Percutaneous Approach (ICD-10-PCS; principal; 2020-06-07)
PROC: 30233N1 Transfusion of Nonautologous Red Blood Cells into Peripheral Vein, Percutaneous Approach (ICD-10-PCS; 2020-06-07)
PROC: 5A12012 Performance of Cardiac Output, Single, Manual (ICD-10-PCS; 2020-06-07)
PROC: 5A1935Z Respiratory Ventilation, Less than 24 Consecutive Hours (ICD-10-PCS; 2020-06-07)
PROC: 0BH17EZ Insertion of Endotracheal Airway into Trachea, Via Natural or Artificial Opening (ICD-10-PCS; 2020-06-07)
PROC: 02HV33Z Insertion of Infusion Device into Superior Vena Cava, Percutaneous Approach (ICD-10-PCS; 2020-06-07)
PROC: B548ZZA Ultrasonography of Superior Vena Cava, Guidance (ICD-10-PCS; 2020-06-07)
PROC: 03HY32Z Insertion of Monitoring Device into Upper Artery, Percutaneous Approach (ICD-10-PCS; 2020-06-07)
PROC: 5A12012 Performance of Cardiac Output, Single, Manual (ICD-10-PCS; 2020-06-08)
DX: K72.90 Hepatic failure, unspecified without coma (principal); A41.9 Sepsis, unspecified organism; R65.21 Severe sepsis with septic shock; J96.01 Acute respiratory failure with hypoxia; D68.59 Other primary thrombophilia; E87.1 Hypo-osmolality and hyponatremia; N17.9 Acute kidney failure, unspecified; D62 Acute posthemorrhagic anemia; R18.8 Other ascites; K92.2 Gastrointestinal hemorrhage, unspecified; K74.60 Unspecified cirrhosis of liver; D53.1 Other megaloblastic anemias, not elsewhere classified; K59.00 Constipation, unspecified; D69.6 Thrombocytopenia, unspecified; E88.09 Other disorders of plasma-protein metabolism, not elsewhere classified; E87.5 Hyperkalemia; I10 Essential (primary) hypertension; E80.6 Other disorders of bilirubin metabolism; K80.20 Calculus of gallbladder without cholecystitis without obstruction; R57.8 Other shock; E16.2 Hypoglycemia, unspecified; Z91.19 Patient's noncompliance with other medical treatment and regimen
CPT/HCPCS: 31500; 36415; 36430; 36600; 70450; 71045; 74176; 74183; 76705; 80048; 80053; 80305; 81001; 82140; 82270; 82435; 82607; 82746; 82803; 82947; 82948; 83605; 83690; 83735; 83880; 84132; 84145; 84295; 84443; 84484; 85014; 85018; 85025; 85027; 85384; 85610; 85730; 86140; 86850; 86900; 86901; 86923; 86927; 87040; 92610; 92950; 93005; 94002; 94003; A9579; C9113; G0378; J0696; J1200; J2020; J2060; J2185; J2250; J2354; J2370; J2405; J2543; J2704; J2765; J3411; J3430; J3490; J7030; J7050; J7070; J7120; P9012; P9016; P9017; P9046